=== PATIENT | male | born 1955 | race Caucasian/White ===

== ENCOUNTER 2016-10-03 04:04 | Inpatient (IN) | payer MEDICARE, OTHER ==
--- NOTE | ~2016-10-03 | EEG ---
Electroencephalogram [address] [place]. [address] NAME: KEMAL MARTINEZ : 59 STATUS : ADM IN PAT#: [id number] AGE: 61 ADM/REG DATE : 10/03/16 MR#: [id number] REPORT SERV DATE: 10/07/16 DICTATED BY: JUANITA FELDMAN DATE: 10/07/16 REPORT STATUS : Draft TRANSCRIBED BY: MODL DATE: 10/07/16 ORDERING PHYSICIAN: Juanita Feldman M.D. INTERPRETING PHYSICIAN: Juanita Feldman M.D. REASON FOR EEG: This is a repeat EEG 24 hours after the initial EEG done on showing continuous status epilepticus, history of altered mental status, encephalopathy, end stage renal disease. The patient was started on continuous dialysis in the last 24 hours. 23 surface electrodes, 10-20 international placement was used. The patient was noted to be unresponsive initially, sedated on Diprivan, while the EEG was being performed, Diprivan was withdrawn to monitor the patient's cerebral activity. The patient's EEG remained diffusely slow with changes compatible with encephalopathic process with burst suppression pattern. Intermittent sharp activity was also noted. After Diprivan was withdrawn, there was recurrence of background activity, which appeared to be relatively organized at times of frequency between 5 and 6 cycles per second. Intermittent biphasic and triphasic waveforms were seen; however, marked improvement in the EEG was seen as compared to the previous study done 24 hours ago. No significant asymmetry of cerebral activity was seen. IMPRESSION: ABNORMAL EEG CHARACTERIZED BY PRESENCE OF DIFFUSE SLOWING OF CEREBRAL ACTIVITY, COMPARED TO THE PREVIOUS STUDY DONE 24 HOURS AGO, THIS EEG SHOWED MARKED IMPROVEMENT WITH DISAPPEARANCE OF PAROXYSMAL EPILEPTIFORM DISCHARGES AND RE-APPEARANCE OF RHYTHMIC BACKGROUND ACTIVITY WHICH APPEARED TO BE OF MODERATE TO HIGH VOLTAGE. NO SIGNIFICANT ASYMMETRY OF CEREBRAL ACTIVITY WAS SEEN. THE PATIENT'S INTERNAL MEDICINE VETERINARY TECHNICIAN SHOWED SINUS RHYTHM, RATE OF APPROXIMATELY 68 TO 72 BEATS PER MINUTE. OF NOTE, THE PATIENT'S BUN WAS 80, 24 HOURS AGO AND 34 TODAY. CLINICAL CORRELATION IS RECOMMENDED. RENITA/HUGO Juanita Feldman MD / [id number] CC: MD Viridiana Flores
--- NOTE | ~2016-10-03 | CN ---
Consultation Report [facility] [address] [place]. [address] NAME: KEMAL MARTINEZ : 59 STATUS : ADM IN [facility]#: [id number] AGE: 61 ADM/REG DATE : 10/03/16 MR#: [id number] REPORT SERV DATE: 10/04/16 DICTATED BY: DATE: REPORT STATUS : Draft TRANSCRIBED BY: MODL DATE: 10/04/16 NEUROLOGY CONSULTATION DATE OF CONSULTATION: 10/04/2016 REASON FOR CONSULT: Encephalopathy. HISTORY OF PRESENT ILLNESS: This is a 61-year-old male, presented to [facility] secondary to altered mental status of unknown duration. Family is otherwise unavailable for evaluation. The patient was noted to be obtunded by family member and was arrived from home via EMS. Upon arrival to the ER, the patient was noted to receive Narcan where the patient workup briefly went back to his obtunded state. The patient in addition received hemodialysis and does not appear to have any improvement in the patient's mental status. The patient currently is apparently receiving hemodialysis, also the patient does have peritoneal dialysis access in the left lower quadrant, which the patient apparently is not currently using. No reports of recent illness were otherwise provided. During the hospital stay, the patient unfortunately was noted to have deteriorating O2 saturation. As a result, the patient was transferred from IMCU to ICU due to worsening O2 saturation. PAST MEDICAL HISTORY: The patient's past medical history is significant for history of chronic pain, type 2 diabetes, end-stage renal disease, hypertension, hypothyroidism. the patient previously on peritoneal dialysis and currently on hemodialysis. MEDICATIONS: According to the patient's available medication, the patient at home takes Risperdal, doxycycline, , diltiazem, baclofen, Renvela, calcium, torsemide, levothyroxine, and Linzess. ALLERGIES: THE PATIENT WAS NOTED TO HAVE ALLERGY REPORTED TO [facility] LYR[facility]. FAMILY AND SOCIAL HISTORY: Family history as well as social history is unable to be obtained due to the patient's current mental status. REVIEW OF SYSTEMS: Otherwise, unable to be obtained secondary to the patient's mental status. PHYSICAL EXAMINATION: VITAL SIGNS: The patient was noted to have vital signs with T-max of 99.1, heart rate of 99 to 129, respiration of 8 to 41, blood pressure of 101 to 179 over 57 to 99. GENERAL: The patient is well developed, well nourished, in no acute distress. CARDIOVASCULAR: Tachycardic. No carotid bruit was otherwise auscultated. PULMONARY: Decreased breath sound in bilateral lung . Consultation Report [id number] [place]. [address] NAME: KEMAL MARTINEZ : 59 STATUS : ADM IN PAT#: [id number] AGE: 61 ADM/REG DATE : 10/03/16 MR#: [id number] REPORT SERV DATE: 10/04/16 DICTATED BY: DATE: REPORT STATUS : Draft TRANSCRIBED BY: MODYvette DATE: 10/04/16 NEUROLOGIC: Generally, the patient is awake, some dysarthric vocalization was noted. The patient is not able to follow commands. At the time of evaluation, the patient does demonstrate spontaneous movement of right upper extremity. The patient's cranial nerves 2 through 12. Pupils equal, round, and reactive to light. At the time of evaluation, trace horizontal eye movement was noted. Oculocephalic maneuver with [id number] response. The patient demonstrated grimace to noxious stimulation in bilateral upper extremity with some grimace to noxious stimulation in the right upper as well as bilateral lower extremity. The patient was noted to have increased muscle tone in the left upper extremity. Spontaneous movement in the right upper extremity was noted. The patient does demonstrate some mild clonus jerking at the time of evaluation. No spontaneous movement in bilateral lower extremity was seen. The patient demonstrated 3+ reflex in bilateral upper extremity. Bilateral lower extremities reflex was difficult to obtain. Otherwise, no plantar reflex was noted in bilateral lower extremity. Gait and cerebellar examination is unable to be performed secondary to the patient's current mental status. LABORATORY DATA: At the time of evaluation, the patient's laboratory study demonstrated white blood cell count of 23.1, hemoglobin of 13.6, hematocrit of 41.9, and platelet count of 355. Chemistry panel: Procalcitonin of 0.86. Sodium 145, potassium 4.6, chloride 107, bicarb 23, BUN of 53, creatinine of 8.95, glucose of 132. Calcium of 11.1, magnesium 2.1. Serum cholesterol of 181, HDL of 68, LDL of 90, and triglyceride of 138. Hemoglobin A1c of 7.1. Hepatitis panel is otherwise negative. The patient's ABG today demonstrated pH of 7.33, pCO2 of 39, PO2 of 74, bicarb of 20, O2 saturation of 93.4. CT scan of the brain was reviewed, mild generalized atrophy. Otherwise, no acute process was seen. CT scan of abdomen, report was also review. No clear abdominal process was otherwise noted. IMPRESSION: 1. Encephalopathy. 2. 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 Etiology of encephalopathy is otherwise unknown. The patient does have some lesions in bilateral lower extremity concerning for possible vasculitis versus endocarditis. We will check echocardiogram secondary to dyspnea as well as hypoxia and bilateral lower extremity lesion for evaluation secondary to myoclonus. We will start the patient on Keppra 250 mg IV b.i.d. We will also obtain EEG on 10/05/2016. When the patient's respiratory status is stable, we are recommending possible MRI study. RECOMMENDATIONS: 1. Keppra 250 mg IV b.i.d. 2. EEG, 10/05/2016. 3. Echocardiogram. 4. Procalcitonin, vitamin B12, folate with morning labs. 5. MRI study when the patient's respiratory status improves. Consultation Report [address] [place]. [address] NAME: KEMAL MARTINEZ : 59 STATUS : ADM IN [facility]#: [id number] AGE: 61 ADM/REG DATE : 10/03/16 MR#: [id number] REPORT SERV DATE: 10/04/16 DICTATED BY: DATE: REPORT STATUS : Draft TRANSCRIBED BY: MODL DATE: 10/04/[address] [facility]/HUGO Obie Quintanilla MD / [id number] CC: Colby Yarbrough MD
--- NOTE | ~2016-10-03 | CN ---
Consultation Report [facility] [address] [place]. [address] NAME: KEMAL JAQUEZ : 59 STATUS : ADM IN PAT#: [id number] AGE: 61 ADM/REG DATE : 10/03/16 MR#: [id number] REPORT SERV DATE: 10/03/16 DICTATED BY: NICO CLARK DATE: 10/03/16 REPORT STATUS : Draft TRANSCRIBED BY: MODL DATE: 10/03/16 NEPHROLOGY CONSULT NOTE DATE OF CONSULTATION: 10/03/2016 HISTORY OF PRESENT ILLNESS: Mr. Jaquez is a 61-year-old, white male, brought to the emergency room by EMS from [facility] where he was discharged yesterday after presenting there without dialysis, confused and was told to follow up with his primary care physician, Dr. Tony Doty. His primary care doctor/sow manager is not available for contact today and discussed the case with Dr. Rosen who is covering for him and he knew very little about the patient. I have not been able to contact the . She is not available and does not answer her cellphone, but I am told by people that have talk to her or have heard her story from somebody in [place], [place], he has been on peritoneal dialysis up until two weeks ago, at which time they had to change the peritoneal catheter out and a PermCath was placed in his right shoulder. He has been dialyzing through the PermCath on Tuesday, , and Tuesday. He has missed his dialysis treatment on Tuesday for sure, probably missed his dialysis also, and he presents now here with volume overload and altered mental status. The exact etiology for the altered mental status is unknown. Records from [facility] in [place], [place] showed that he was treated with Risperdal there and Compazine and given prescriptions for both medications. I am not sure he took any or not. On arrival here, I was informed he was a peritoneal-dialysis patient, set up for peritoneal dialysis, but when I got the rest of the story, we have canceled any plans for peritoneal dialysis, which was meredith in that his peritoneal dialysis catheter came here uncapped and exposed to his skin, and therefore, I do not believe it is sterile anymore, and he has a right IJ PermCath whose dressings have not been disturbed. Per [facility] records from 2013, he was started on hemodialysis here on 12/04/2013, and transferred to [facility] for outpatient hemodialysis, but I do not have any records after that. 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 In the distant past in 2011, he had been seen by Dr. Nikolay Haskins in our office but those records are not available either. SOCIAL HISTORY: Again from record shows retired from [email or web address], with four children, lives in [place]. No tobacco, and does take some alcohol, but no drugs. FAMILY HISTORY: Positive for coronary artery disease in his father and hypertension. All these from old records. Consultation Report [id number] [facility] [place] [place]. [address] NAME: KEMAL JAQUEZ : 59 STATUS : ADM IN [facility]#: [id number] AGE: 61 ADM/REG DATE : 10/03/16 MR#: [id number] REPORT SERV DATE: 10/03/16 DICTATED BY: NICO CLARK DATE: 10/03/16 REPORT STATUS : Draft TRANSCRIBED BY: HUGO DATE: 10/03/16 PHYSICAL EXAMINATION: GENERAL: Currently, he is unable to give any history. He is on BiPAP, mid zone, and mumbles but cannot understand. VITAL SIGNS: Blood pressure 158/81, heart rate 100, respirations 22, temperature afebrile. HEENT: Unremarkable and does not follow commands. NECK: Without bruit. No jugular venous distention. CHEST: Shows decreased breath sounds at the bases. No wheezes. CARDIOVASCULAR: Without rub. ABDOMEN: Soft. Complained of tenderness or grimacing with examination of entire abdomen, but no rebound and no megaly. Midline PD catheter in place with now it has a cap on it, placed by the emergency room personnel. EXTREMITIES: Left big toe is missing on his left foot but no peripheral edema. He is disoriented and unable to give a history and he does move all four extremities well. LABORATORY DATA: Labs showed a pH of 7.37, pCO2 of 39, pO2 103 on 2 L. Sodium 141, potassium 4.5, chloride 100, CO2 22 with a BUN of 70, creatinine 10.6, blood sugar 178 and repeat 114, calcium 9.3, magnesium 1.9, phosphorus 4.2, total protein up to 9, albumin 3.7, alkaline phos 346. Normal liver enzymes, otherwise. Ammonia level 21. CPK was 190, troponin 0.06. White count 12,600, hemoglobin 13, hematocrit 40, platelet count 345,000. Blood cultures and urine culture have been done. Urinalysis shows greater than 180 white cells per high-power field. INR is 1.2. Chest x-ray shows history of previous surgery, low lung volumes and mild vascular prominence. CT of the brain showed no acute abnormalities. CT scan of the abdomen and pelvis shows no active abnormalities found. ASSESSMENT: 1. End-stage renal disease patient from [facility] under the care of a sow manager there, presents with altered mental status, no other history. He has missed some dialysis treatments and we will plan to start hemodialysis here and get more records, apparently was a peritoneal dialysis patient. The catheter was exchanged two weeks ago, I am not sure why, and is currently hemo-dialyzing in [place]. They are closed today but the covering physician does remember something about him going yesterday to [facility] in [place] and discharged from there after being given prescriptions for Risperdal and Compazine. 2. Hypertension. 3. Diabetes mellitus on oral agents. 4. Chronic pain syndrome from his back and fibromyalgia. 5. Hypothyroid. 6. Nephrolithiasis. 7. Congestive heart failure systolic. 8. Currently has urinary tract infection, treated with Rocephin. We have added vancomycin because of his exposed catheter and concerned regarding infection from his PermCath and/or abdomen causing his altered mental status. PLAN: Continue BiPAP, ultrafiltration, on hemodialysis today, and we called the nurse in to Consultation Report [address] [place] [address] NAME: JUANKEMAL EMERITA : 59 STATUS : ADM IN PAT#: [id number] AGE: 61 ADM/REG DATE : 10/03/16 MR#: [id number] REPORT SERV DATE: 10/03/16 DICTATED BY: NICO CLARK DATE: 10/03/16 REPORT STATUS : Draft TRANSCRIBED BY: HUGO DATE: 10/03/16 dialyze him, and we will attempt to confirm the history we have, await cultures reports. GIOVANNI/HUGO Nico Clark M.D. / [id number] CC: MD Dr. Tony Flores
--- NOTE | ~2016-10-03 | HP ---
History And Physical [address] [place]. [address] NAME: KEMAL MARTINEZ : 59 STATUS : ADM IN [facility]#: [id number] AGE: 61 ADM/REG DATE : 10/03/16 MR#: [id number] REPORT SERV DATE: 10/03/16 DICTATED BY: COLBY GOVEA DATE: 10/03/16 REPORT STATUS : Draft TRANSCRIBED BY: MODL DATE: 10/03/16 DATE OF ADMISSION: 10/03/2016 CHIEF COMPLAINT: Change in mental status. HISTORY OF PRESENT ILLNESS: A 61-year-old white male with a past medical history of chronic pain, diabetes type 2, end-stage renal disease, hypertension, hypothyroid, presenting with change of mental status of unknown duration. The patient arrived from home and was brought in by EMS. The patient was found to be obtunded. Based on ER record/staff, the patient, on the way in, got Narcan and the patient woke up and then subsequently went back to his change in mental status. Unfortunately, the patient could not give any further history at this time. There are no family present as well. The patient does get dialysis from a PermCath on his right anterior chest wall and also he has a PD access on his left lower quadrant of his abdomen. PAST MEDICAL HISTORY: As above. MEDICATIONS: Currently unknown. The patient does not have an adequate list to be verified at this time. Based on the previous visit at [facility] in [facility]. MEDICATIONS: The patient's medications are as follows: 1. Calcium acetate 667 mg p.o. t.i.d. 2. Diltiazem 120 mg p.o. 2 times a day. 3. Vitamin A 8000 units once daily. 4. Vitamin D3, 5000 units unknown frequency. 5. Doxycycline 100 mg q.12. 6. Bethanechol 50 mg 2 times a day. 7. Levothyroxine 150 mcg 1 tab p.o. daily. 8. Baclofen 20 mg p.o. three times a day. 9. Linzess 290 mcg 1 tab daily. 10.Renvela 800 mg 2 tabs 3 times a day. 11.Omeprazole 20 mg p.o. daily. 12.Oxycodone 10 mg p.o. q.6. ALLERGIES: COREG AND LYRICA. SOCIAL HISTORY: Unknown patient. FAMILY HISTORY: Unknown patient. REVIEW OF SYSTEMS: Unknown patient. PHYSICAL EXAMINATION: VITAL SIGNS: Temperature of 97.2, pulse of 97, respiratory rate of 15, blood pressure 160/90, and O2 saturation 100% on 2 L. History And Physical [address] [address] NAME: KEMAL MARTINEZ : 59 STATUS : ADM IN [facility]#: [id number] AGE: 61 ADM/REG DATE : 10/03/16 MR#: [id number] REPORT SERV DATE: 10/03/16 DICTATED BY: COLBY GOVEA DATE: 10/03/16 REPORT STATUS : Draft TRANSCRIBED BY: HUGO DATE: 10/03/16 HEENT: Head and neck normocephalic, atraumatic. Pupils are pin point. CARDIOVASCULAR: S1, S2. Regular rate and rhythm. LUNGS: Good air entry. No wheeze, rales, or rhonchi. There is a right anterior PermCath for HD access. ABDOMEN: Soft, nontender, and nondistended. Positive bowel sounds. There is a PD catheter located on the left lower quadrant of his abdomen. NEUROLOGIC: The patient is awake and arousable. Nonverbal. No focal deficit appreciated. LABORATORY DATA: Sodium 141, potassium 4.5, chloride 100, bicarb 22, BUN 70, creatinine 10.6, glucose 178, GFR 5, calcium 9.3, total protein 9.0, albumin 3.7, globulin 12.3, total bilirubin 7.4, alkaline phosphatase 346, ALT 33, AST 18, ammonia 18, CPK 190. Tylenol 2.0. Aspirin 1.7. Alcohol level less than 10. WBC 12.8, hemoglobin 13.2, hematocrit 40.4, and platelets 345. PT 14.9, INR 1.2. CT of the head shows no acute abnormality. CT abdomen and pelvis. Initial impression was no acute intraabdominal pathology identified. Contour deformity lower pole right kidney. Ultrasound evaluation to exclude solid mass. ASSESSMENT AND PLAN: 1. Encephalopathy of unknown duration, unknown etiology at this time. Questionable if this patient is secondary to medication. The patient is currently on the Narcan drip. There are some effects of waking up the patient with the Narcan drip. Questionable if the patient took too much oxycodone based on his partial med list. In addition, the change in mental status could be also metabolic in nature. We will have Nephrology on consult for dialysis. Hopefully once we get the patient more awake and alert, probably provide more history in order to determine the cause of his encephalopathy. 2. End-stage renal disease, on hemodialysis. The patient does have a PD catheter in place. Initial CT of the abdomen and pelvis shows no acute abnormality in the abdomen. We will have Renal on consult for dialysis and use the right PermCath. In addition, we will also empirically cover the patient for UTI. We will start the patient on Rocephin 1 g IV q.24. 3. Diabetes type 2. Hold the patient's Toujeo at this time. Use sliding scale and check Hemoglobin A1c. The patient is too obtunded to eat at this time and we will just use sliding scale for blood sugar coverage. 4. Hypothyroid. We will give the patient IV Synthroid 75 mcg daily. 5. Hypertension. The patient cannot take any medication due to his obtundation at this time. We will just cover with hydralazine p.r.n. Should the patient be more awake and alert, we will restart his blood pressure medication. 6. DVT prophylaxis. We will start the patient on heparin. ROBERTO CARLOS/HUGO Colby Govea MD / [id number] History And Physical [address] [address] NAME: KEMAL MARTINEZ : 59 STATUS : ADM IN PAT#: [id number] AGE: 61 ADM/REG DATE : 10/03/16 MR#: [id number] REPORT SERV DATE: 10/03/16 DICTATED BY: COLBY GOVEA DATE: 10/03/16 REPORT STATUS : Draft TRANSCRIBED BY: MODL DATE: 10/03/16 CC: Colby Govea MD
--- NOTE | ~2016-10-03 | CN ---
Consultation Report [facility] [address] [place]. [address] NAME: KEMAL MARTINEZ : 59 STATUS : ADM IN PAT#: [id number] AGE: 61 ADM/REG DATE : 10/03/16 MR#: [id number] REPORT SERV DATE: 10/18/16 DICTATED BY: DAVID CONTRERAS DATE: 10/18/16 REPORT STATUS : Draft TRANSCRIBED BY: MODL DATE: 10/18/16 PSYCHIATRIC CONSULTATION DATE OF CONSULTATION: 10/18/2016 I reviewed this patient's current and old medical records. I discussed the patient's status with Dr. Hayden. I discussed the patient's history with his , who was at the bedside. HISTORY OF PRESENT ILLNESS: He was admitted with hypertensive emergency, acute pulmonary edema, chronic kidney disease. I was asked to address anxiety and irritability. PAST PSYCHIATRIC HISTORY: He always had a tendency toward mood cycling. He had spontaneous and easily provoked episodes of anger. He also had episodes of high achievement. He has not experienced periods of euphoria. He has been on Effexor for a number of months without any benefit. Recently, since this admission, he was started on Depakote and Keppra because of apparent status epilepticus. I wonder if there was any association with the increase in his irritability and the starting of Keppra. 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 He had a fall down the stairs while carrying a heavy camera. This caused severe back injury. Since then, he has taken opioid medications on and off. After discharge from the , he went back to college and graduated with a second degree. He has always been highly motivated and very active. FAMILY HISTORY: His mother had bipolar disorder. MENTAL STATUS: He was alert. He was quite talkative. His mood was anxious and angry. He repeatedly expressed a desire to return to his home and to proceed with the requirements for a kidney transplant. He expressed difficulty understanding the need for the continued hospitalization in this hospital. His affect was somewhat labile with brief outburst of anger. His thinking was logical. He had no delusions. He had no hallucinations. He was oriented to "October"-"is it the or the "-"2016"-"a hospital, in [place]"-"it is not [facility] and it is not [facility]." He was oriented to persons. He discussed and named family members appropriately. He estimated his length of stay in this hospital as "about a week." DIAGNOSES: 1. Delirium, improved. 2. Mood disorder, not otherwise specified. RECOMMENDATIONS: I will discontinue the Effexor if this has not already been done. I wonder about the possibility of Keppra causing an increase in his irritability. I will start him on Abilify 5 mg b.i.d. and Ativan 0.5 mg b.i.d. Hopefully, we can comply with his wishes for a discharge to his home to allow him to proceed with the workup for a kidney transplant. I will follow during this hospitalization. Consultation Report [address] [place]. [address] NAME: KEMAL MARTINEZ : 59 STATUS : ADM IN PAT#: [id number] AGE: 61 ADM/REG DATE : 10/03/16 MR#: [id number] REPORT SERV DATE: 10/18/16 DICTATED BY: DAVID CONTRERAS DATE: 10/18/16 REPORT STATUS : Draft TRANSCRIBED BY: HUGO DATE: 10/18/16 EMILIA/HUGO David Contreras M.D. / [id number] CC: Jenise Warner Sherri Lee
--- NOTE | ~2016-10-03 | DS ---
Discharge Summary [address] [address] NAME: KEMAL MARTINEZ : 59 STATUS : DIS IN PAT#: [id number] AGE: 61 ADM/REG DATE : 10/03/16 MR#: [id number] REPORT SERV DATE: 10/19/16 DICTATED BY: LEANDRA HAYDEN DATE: 10/18/16 REPORT STATUS : Draft TRANSCRIBED BY: MODL DATE: 10/18/16 ADMISSION DATE: 10/03/2016 DISCHARGE DATE: 10/18/2016 DISCHARGE DIAGNOSES: 1. 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 2. Sepsis. 3. ESBL Escherichia coli positive tracheal culture with pulmonary infiltrate, suspected HCAP. 4. Acute hypoxemic respiratory failure requiring mechanical ventilation. 5. End-stage renal disease, on chronic dialysis. Transplant evaluation ongoing at [facility]. 6. Chronic pain syndrome. 7. Mood disorder, not otherwise specified. 8. Diabetes with retinopathy, neuropathy, and nephropathy. 9. Acute blood loss anemia. 10.Anemia of chronic disease. 11.Diastolic congestive heart failure. 12.Chronic constipation, on Linzess. 13.Systemic hypertension. 14.Hyperlipoproteinemia. 15.Hypothyroid, on Synthroid replacement. 16.History of Methicillin-resistant Staphylococcus aureus left foot infection with left great toe amputation. 17.History of pericardial tamponade post window. PRESENT ILLNESS: This is a 61-year-old white male, who was triaged in the emergency room with an altered mental status of three days' duration. After evaluation in the emergency room, he was referred to the Hospitalist Service for admission. He was seen by Dr. Yarbrough and admitted as described on admission history and physical examination. ADDITIONAL HISTORY: Per Dr. Yarbrough. PHYSICAL EXAMINATION: Per Dr. Yarbrough. ADMISSION LABORATORY: Per Dr. Yarbrough. HOSPITAL COURSE: He was admitted with encephalopathy of unknown duration and unknown etiology. There was some concern that it might relate to opioids as he had a transient improvement with the use of Narcan. In addition, he was empirically covered for possible urinary tract infection with Rocephin. Nephrology consultation was obtained. He was seen by Dr. Rodriguez. He was also concerned about infection related to his PermCath or peritoneal dialysis catheter (which was not being Discharge Summary [address] [address] NAME: KEMAL MARTINEZ : 59 STATUS : DIS IN PAT#: [id number] AGE: 61 ADM/REG DATE : 10/03/16 MR#: [id number] REPORT SERV DATE: 10/19/16 DICTATED BY: LEANDRA HAYDEN DATE: 10/18/16 REPORT STATUS : Draft TRANSCRIBED BY: MODL DATE: 10/18/16 used). Vancomycin was added. A CT scan of the brain was done which did not demonstrate any acute abnormality. Admission chest x-ray did not show a pulmonary infiltrate. Admission blood cultures did not subsequently grow any organisms but a urine culture grew Amaya glabrata. When seen by Dr. Yarbrough on 10/04/2016, the patient was unresponsive. He had increasing O2 requirement. He was transferred to the ICU. In the intensive care unit, he was followed by Nephrology. He was seen by Neurology. He was cared for by the Critical Care Medicine team. His hospital course in the ICU from transfer through 10/15/2016, is as outlined on interim summary dictated by Dr. Shoemaker. His care was assumed by the undersigned on 10/16/2016. He was seen on 10/17/2016 and on 10/18/2016. Additional history was obtained from his on 10/17/2016, which included 1. He was not overusing opioids as she was managing his medications and he was seeing Pain Management. 2. He had behavioral changes intermittently for the previous six months which resulted in at least three if not four hospitalizations in [place] and [place]. Each time, he was diagnosed as having an infection. 3. His mental status had not yet returned to normal. 4. He had a history of depression, previously treated with Trintellix and Effexor but had not had any psychiatric hospitalizations. 5. He had some generalized anxiety that was not being treated. 6. He was being evaluated at [place] for a transplant but had not yet had a mental status psychiatric evaluation. Consultation was obtained with Dr. J Carlos Hernandez. He thought that he had a mood disorder, not otherwise specified and that his delirium was improved. He recommended discontinuing Effexor and beginning Abilify and Ativan with outpatient followup. He completed ten days of meropenem. He had been placed on a Duragesic patch in the ICU. This was discontinued. His home immediate release oxycodone was initiated. His pain control was satisfactory. He had a drop in his hemoglobin during his hospitalization. It was 6.4 on the 8th. He was transfused and subsequent hemoglobins were 9.6, 9.7, and 8.8. Iron studies revealed an iron of 35, TIBC of 149 with a ferritin of 915, folate 7.2, B12 of 861, TSH 1.54, and no monoclonal protein on serum protein electrophoresis and LDH was mildly elevated at 263. Stools were requested for Hemoccult and were negative. When seen on 10/18/2016, when seen by the undersigned with his , he was thought to be back to normal or near normal cognitively. He was eating without nausea, vomiting, or Discharge Summary [address] [address] NAME: KEMAL MARTINEZ : 59 STATUS : DIS IN PAT#: [id number] AGE: 61 ADM/REG DATE : 10/03/16 MR#: [id number] REPORT SERV DATE: 10/19/16 DICTATED BY: LEANDRA HAYDEN DATE: 10/18/16 REPORT STATUS : Draft TRANSCRIBED BY: HUGO DATE: 10/18/16 abdominal pain. He had no cough or dyspnea. He had seen Dr. Hernandez with recommendations as noted above. Neurology had previously signed off after evaluating and treating his complex partial seizures and status with drug recommendations to be described below. He had been seen by Nephrology who thought that he could follow up at [place] on his Tuesday, , Tuesday dialysis schedule. DISCHARGE DATA: Sodium 144, potassium 3.9, chloride 108, CO2 of 22, BUN 34, creatinine 4.92, glucose 1.62, calcium 8.5, mag 1.6, and phosphorus 4.8. White count 10.6, hemoglobin 8.8, platelets 291,000. A.c. and h.s. blood sugars on the 9th, 129, 207, 118, 267; on the before breakfast 220, lunch 84. He is being discharged home to the care of his . He will have home health care for PT evaluation and treatment. He will continue dialysis Tuesday, , and Tuesday at [place]. He will follow up at the [facility]. He will see his primary care physician, Dr. Viridiana Benavides in [place] within a week. He will follow up with Pain Management in [place]. DISCHARGE MEDICATIONS: Pending outpatient followup, Abilify 5 mg twice daily; Depakote 1500 mg twice daily; Keppra 1250 mg every 8 hours; Synthroid 100 mcg daily; Ativan 0.5 mg twice daily; prochlorperazine three times daily as needed for nausea; Toujeo 20 units daily pending outpatient blood sugars plus on a.c. home NovoLog scale; Renvela one tablet three times daily; calcium acetate one tablet three times daily; Linzess one capsule daily; omeprazole 20 mg daily; and oxycodone 10 mg every 4 hours as needed. Discharge time greater than 30 minutes. DD/MODL Leandra Hayden M.D. / [id number] CC: Jenise Warner
--- NOTE | ~2016-10-03 | EEG ---
Electroencephalogram [facility] [address] [place]. [address] NAME: KEMAL MARTINEZ : 59 STATUS : DIS IN PAT#: [id number] AGE: 61 ADM/REG DATE : 10/03/16 MR#: [id number] REPORT SERV DATE: 11/05/16 DICTATED BY: JUANITA FELDMAN DATE: 11/04/16 REPORT STATUS : Draft TRANSCRIBED BY: MODL DATE: 11/04/16 DATE OF SERVICE: 10/05/16: REASON FOR EEG: Severely abnormal EEG. The patient was intubated, unresponsive, status epilepticus. During the EEG, infusion of multiple anticonvulsants was given. The patient was monitored continuously. The total EEG recording was over 3 hours. 23 surface electrodes, 10-20 international placement was used. The patient was unresponsive. No tonic-clonic activity was observed during the study. Intermittent arm movements were noted. The patient was on hemodialysis during part of the recording. 23 surface electrodes, 10-20 international placement was used. Intermittent bilaterally synchronous paroxysmal activity of high voltage of spike and polyspike activity was predominantly seen in the anterior head regions, however, intermittently was bilaterally synchronous involving all the leads. Intermittent periods of burst suppression activity were also observed lasting between one and three seconds. During the EEG, the infusion anticonvulsants was performed with gradual decrease of paroxysmal epileptiform activity after patient eventually received Keppra, Depakote, and Vimpat. Precedex was also used intermittently with larger doses produced moderate amount of burst suppression activity. IMPRESSION: BILATERALLY SYNCHRONOUS PAROXYSMAL EPILEPTIFORM DISCHARGES SEEN CONTINUOUSLY ARE COMPATIBLE WITH CONTINUOUS STATUS EPILEPTICUS UNDERLYING SLOWING AND DISORGANIZATION OF CEREBRAL ACTIVITY WITH INTERMITTENT BIPHASIC AND TRIPHASIC WAVEFORMS SUGGEST PRESENCE OF METABOLIC ENCEPHALOPATHY. REPEAT EEG IS RECOMMENDED IN 24 HOURS. RENITA/HUGO Juanita Feldman MD / [id number] CC: Jenise Warner,NICA MAY
--- NOTE | ~2016-10-03 | IDS ---
Interim Discharge Summary [facility] [address] [place]. [address] NAME: KEMAL MARTINEZ : 59 STATUS : ADM IN [facility]#: [id number] AGE: 61 ADM/REG DATE : 10/03/16 MR#: [id number] REPORT SERV DATE: 10/15/16 DICTATED BY: DEANDRE MARTIN DATE: 10/15/16 REPORT STATUS : Draft TRANSCRIBED BY: MODL DATE: 10/15/16 ADMISSION DATE: 10/03/2016 DISCHARGE DATE: DATE OF INTERIM DISCHARGE SUMMARY: 10/15/2016 ADMISSION DIAGNOSES: Encephalopathy, end-stage renal disease, peritoneal dialysis, diabetes, hypothyroidism, hypertension. HOSPITAL COURSE: Please see history and physical on admission for full detail. In brief, this is a 61-year-old gentleman with a history of end-stage renal disease, on peritoneal dialysis, who was admitted with encephalopathy and was found to have ESBL E. coli. The patient has currently been on meropenem. The patient's shock has now resolved for at least 24 hours. The patient was on cefepime prior around 10/09/2016, but this has been changed to meropenem. The first day of the meropenem was 10/10/2016. The patient's inflammatory and sepsis have improved. The patient remains on meropenem. 1. Acute kidney injury: The patient had his first HD treatment, actually his diagnosis is end-stage renal disease. The peritoneum is not being used due to the infection noted on admission. His first HD treatment during this hospitalization was on 10/14/2016. 2. Encephalopathy: Neurology has been on board, he is on multiple antiepileptics. Unfortunately, his neurologic encephalopathy has improved. The patient had myoclonus and was at that time noted to be hypoxic. His EEGs have improved. 3. Anemia: The patient is chronically anemic. He needs to have his CBC checked routinely as he is close to requiring another blood transfusion. 4. Diabetes: The patient is currently on Levemir and level 3 insulin sliding scale. Has had good control. 5. Hypoxia: Currently, on nasal cannula. 6. Disposition: The patient is to be transferred to the floor today. HFQ/MODL Deandre Martin MD / [id number] CC: Colby Yarbrough MD
--- NOTE | ~2016-10-03 | OP ---
Record Of Operation [facility] [address] [place]. [address] NAME: KEMAL MARTINEZ : 59 STATUS : ADM IN [facility]#: [id number] AGE: 61 ADM/REG DATE : 10/03/16 MR#: [id number] REPORT SERV DATE: 10/05/16 DICTATED BY: LEIGHTON GARCIA DATE: 10/05/16 REPORT STATUS : Draft TRANSCRIBED BY: MODL DATE: 10/05/16 DATE OF PROCEDURE: PROCEDURE PERFORMED: Oroendotracheal intubation. INDICATION: For acute hypoxemic respiratory failure and status epilepticus. DESCRIPTION OF PROCEDURE: The patient was transferred back from dialysis to the ICU. He received 10 mL of IV propofol. Tolerated it well, and using a GlideScope #4 blade, we were able to directly visualize the vocal cords which were midline with some thick white secretions throughout, but no obstruction. We advanced a size 8 oroendotracheal tube beyond the vocal cords without difficulty and secured in place at 24 cm. Proper placement was confirmed by good auscultation of breath sounds bilaterally. Good fogging with bagging and good oxygenation. Good color change on an end-tidal CO2 indicator and chest radiograph. IMPRESSION: Successful oroendotracheal intubation. EDWAR/HUGO Leighton Garcia M.D. / [id number] CC: MD ROSA ELENA Flores SHERRI LEE
[2016-10-03 03:40] LABS: BE (BASE EXCESS) -4.3 MEQ/L (0 +/- 2.5); CARBOXYHEMOGLOBIN 1.2 % (0-3); DEVICE NC; HCO3 (ACTUAL BICARBONATE) 20.8 MEQ/L (23-27); HEMOBLOGIN CONTENT 12.5 G/DL (14-18); INSTRUMENT SERIAL # 8087; METHEMOGLOBIN 0.1 % (0-3); OPERATOR ID 17537; PCO2 (CO2 TENSION) 39 MMHG (35-45); PO2 (O2 TENSION) 103 MMHG (79-93); SAMPLE Arterial; pH 7.35 (7.37-7.43)
[~2016-10-03 04:04] MED LIST: AMIT25 PO; APRES50 PO; ATV.5 PO; CAT2 PO; COREG12 PO; COREG25 PO; DSS PO; DURA25 TOP; KDUR10 PO; LEVEMIR SC; NORV5 PO; NOVOLOG SC; OXYIR5 MG PO; PAX10 PO; SPIRO25 PO; SPIRO50 PO; SYN.15 PO; TYLENOL 8 HR650 MG PO; VICTOZA18 MG/3 ML SC; VITAMIN D31000 UNIT PO; VITE200U PO; ZOCOR20 PO
[2016-10-03 04:49] LABS: BASOPHILS 0.1 %; BASOPHILS ABSOLUTE 0.01 10/3/uL (0.0-0.16); EOSINOPHILS 0.1 %; EOSINOPHILS ABSOLUTE 0.01 10/3/uL (0.0-0.53); IMMATURE GRANULOCYTES 0.4 %; IMMATURE GRANULOCYTES ABSOLUTE 0.05 10/3/uL (0.0-0.11); LYMPHOCYTES 7.2 %; LYMPHOCYTES ABSOLUTE 0.92 10/3/uL (0.67-4.30); MEAN CORPUS HGB CONC 32.7 g/dL (32.0-36.0); MEAN PLATELET VOLUME 10.4 fL (9.2-13.0); MONOCYTES 5.9 %; MONOCYTES ABSOLUTE 0.75 10/3/uL (0.21-1.20); NEUTROPHILS 86.3 %; NEUTROPHILS ABSOLUTE 11.06 10/3/uL (2.02-8.40); RED CELL COUNT 4.16 10/6/uL (4.7-6.1)
[2016-10-03 04:54] LABS: ER CBC TAT 0 Hrs 13 MinsNP; HEMATOCRIT 40.4 % (40.0-51.0); HEMOGLOBIN 13.2 g/dL (13.6-17.8); MANUAL DIFF NO %; MEAN CORPUSCULAR HEMOGLOB 31.7 pg (26.0-34.0); MEAN CORPUSCULAR VOLUME 97.1 fL (80-100); PLATELET COUNT 345 10/3/uL (150-400); RBC DISTRIBUTION WIDTH 17.4 % (12.0-16.0); WHITE BLOOD CELLS 12.8 10/3/uL (4.5-10.5)
[2016-10-03 05:05] LABS: INTERNATIONAL NORMAL RATI 1.2 UNITS (-); PARTIAL THROMBO TIME 23.4 SEC (22.5-37.2); PROTIME (NOT ORD) 14.9 SEC (12.0-14.5)
[2016-10-03 05:07] LABS: ALBUMIN 3.7 G/DL (3.5-5.0); CALCIUM, SERUM 9.3 MG/DL (8.5-10.4); CHLORIDE, SERUM 100 MMOL/L (96-112); CO2 (CARBON DIOXIDE) 22 MMOL/L (24-34); GLUCOSE, SERUM 178 MG/DL (60-99); POTASSIUM, SERUM 4.5 MMOL/L (3.5-5.3); SGOT(AST) 18 U/L (5-40); SGPT(ALT) 33 U/L (5-65); SODIUM, SERUM 141 MMOL/L (135-148); TOTAL BILIRUBIN 0.4 MG/DL (0-1.2)
[2016-10-03 05:09] LABS: A/G RATIO 0.7 (0.7-1.9); ALKALINE PHOSPHATASE 346 U/L (45-117); BUN (BLOOD UREA NITROGEN) 70 MG/DL (6-23); CPK 190 U/L (0-200); GFR AFRICAN AMERICAN 5 ML/MIN (>=60); GFR NON AFRICAN AMERICAN 5 ML/MIN (>=60); GLOBULIN 5.3 G/DL (2.5-4.1)
[2016-10-03 05:10] LABS: ACETAMINOPHEN LEVEL (TYLENOL) < 2.0 MCG/ML (10.0-20.0); ALCOHOL < 10 MG/DL (0); SALICYLATE < 1.7 MG/DL (-); TROPONIN I 0.06 NG/ML (<0.05)
[2016-10-03 05:47] LABS: ASCORBIC ACID (UR NOT ORDER) NEG (NEG); BILIRUBIN, URINE NEGATIVE (NEG); ER URINALYSIS TAT 0 Hrs 00 Mins; KETONE, URINE NEGATIVE (NEG); LEUKOCYTE ESTERASE(NOT OR MOD (NEG); NITRITE (URINE) NEG (NEG); WBC (NOT ORDERED) (RFLEX) > 182 (0-5)
[2016-10-03 06:02] LABS: AMPHETAMINES (NOT ORD) NEG (NEG); BARBITURATES (NOT ORDERED NEG (NEG); BENZODIAZEPINES (NOT ORD) NEG (NEG); CANNABINOIDS (THC) NEG (NEG); COCAINE (NOT ORDERED) NEG (NEG); OPIATES POS (NEG); PHENCYCLIDINE(PCP) NEG (NEG); TRICYCLICS NEG (NEG)
[2016-10-03] MEDS ORDERED: COMP5B PO (10:04)
[2016-10-03] MEDS ORDERED: DOXYCYCLINE PO (10:05)
[2016-10-03] MEDS ORDERED: RISPERIDONE PO (10:05)
[2016-10-03] MEDS ORDERED: TOUJEO SC (10:06)
[2016-10-03] MEDS ORDERED: DILTIAZEM PO (10:08)
[2016-10-03] MEDS ORDERED: BACLOFEN PO (10:09)
[2016-10-03] MEDS ORDERED: RENVELA800 MG PO (10:09)
[2016-10-03] MEDS ORDERED: TORSEMIDE PO (10:10)
[2016-10-03] MEDS ORDERED: PHOSLO PO (10:10)
[2016-10-03] MEDS ORDERED: LEVOTHYROXINE PO (10:11)
[2016-10-03] MEDS ORDERED: LINZESS 290 M290 MCG PO (10:11)
[2016-10-03] MEDS ORDERED: *UNABLE2 (10:12)
[2016-10-03 12:42] LABS: ULTRASENSITIVE TSH 1.54 MCIU/ML (0.358-3.740)
[2016-10-03 13:38] LABS: PROCALCITONIN 0.86 ng/mL (<0.5)
[2016-10-03 23:10] LABS: BE (BASE EXCESS) -3.9 MEQ/L (0 +/- 2.5); BIPAP 15/5 cm.H2O; CARBOXYHEMOGLOBIN 0.1 % (0-3); HCO3 (ACTUAL BICARBONATE) 21.7 MEQ/L (23-27); HEMOBLOGIN CONTENT 12.8 G/DL (14-18); INSTRUMENT SERIAL # 8083; METHEMOGLOBIN 0.1 % (0-3); O2 CONTENT 17.5 VOL% (18-24); OPERATOR ID 16503; PCO2 (CO2 TENSION) 41 MMHG (35-45); PO2 (O2 TENSION) 95 MMHG (79-93); SAMPLE Arterial; pH 7.34 (7.37-7.43)
[2016-10-04 00:01] LABS: BASOPHILS 0.2 %; BASOPHILS ABSOLUTE 0.03 10/3/uL (0.0-0.16); EOSINOPHILS 0 %; HEMATOCRIT 39.2 % (40.0-51.0); HEMOGLOBIN 12.5 g/dL (13.6-17.8); IMMATURE GRANULOCYTES 0.5 %; IMMATURE GRANULOCYTES ABSOLUTE 0.09 10/3/uL (0.0-0.11); LYMPHOCYTES 4.4 %; LYMPHOCYTES ABSOLUTE 0.84 10/3/uL (0.67-4.30); MEAN CORPUS HGB CONC 31.9 g/dL (32.0-36.0); MEAN CORPUSCULAR HEMOGLOB 31.1 pg (26.0-34.0); MEAN CORPUSCULAR VOLUME 97.5 fL (80-100); MONOCYTES 6.7 %; MONOCYTES ABSOLUTE 1.26 10/3/uL (0.21-1.20); NEUTROPHILS 88.2 %; PLATELET COUNT 363 10/3/uL (150-400); RBC DISTRIBUTION WIDTH 17.6 % (12.0-16.0); RED CELL COUNT 4.02 10/6/uL (4.7-6.1)
[2016-10-04 00:03] LABS: MANUAL DIFF NO %; WHITE BLOOD CELLS 18.9 10/3/uL (4.5-10.5)
[2016-10-04 00:18] LABS: A/G RATIO 0.8 (0.7-1.9); ALBUMIN 4.2 G/DL (3.5-5.0); CALCIUM, SERUM 9.7 MG/DL (8.5-10.4); CHLORIDE, SERUM 106 MMOL/L (96-112); CO2 (CARBON DIOXIDE) 23 MMOL/L (24-34); FREE T4 1.08 NG/DL (0.76-1.46); GLUCOSE, SERUM 152 MG/DL (60-99); POTASSIUM, SERUM 4.6 MMOL/L (3.5-5.3); SGOT(AST) 15 U/L (5-40); SGPT(ALT) 29 U/L (5-65); SODIUM, SERUM 142 MMOL/L (135-148); TOTAL BILIRUBIN 0.5 MG/DL (0-1.2); TOTAL PROTEIN 9.2 G/DL (6.0-8.5)
[2016-10-04 00:19] LABS: ALKALINE PHOSPHATASE 310 U/L (45-117); BUN (BLOOD UREA NITROGEN) 48 MG/DL (6-23); CREATININE 8.01 MG/DL (0.70-1.30); GFR AFRICAN AMERICAN 8 ML/MIN (>=60); GFR NON AFRICAN AMERICAN 7 ML/MIN (>=60); PHOSPHORUS, SERUM 6.1 MG/DL (2.5-4.5)
[2016-10-04 06:01] LABS: HEMATOCRIT 41.9 % (40.0-51.0); HEMOGLOBIN 13.6 g/dL (13.6-17.8); MEAN CORPUS HGB CONC 32.5 g/dL (32.0-36.0); MEAN CORPUSCULAR HEMOGLOB 32.1 pg (26.0-34.0); MEAN CORPUSCULAR VOLUME 98.8 fL (80-100); MEAN PLATELET VOLUME 10.2 fL (9.2-13.0); PLATELET COUNT 355 10/3/uL (150-400); RBC DISTRIBUTION WIDTH 17.5 % (12.0-16.0); RED CELL COUNT 4.24 10/6/uL (4.7-6.1); WHITE BLOOD CELLS 23.1 10/3/uL (4.5-10.5)
[2016-10-04 06:02] LABS: MANUAL DIFF YES %
[2016-10-04 06:22] LABS: BAND NEUTROPHILS 4 %; LYMPHOCYTES 2 %; LYMPHOCYTES ABSOLUTE (CALC) 0.46 10/3/uL (0.67-4.30); MONOCYTES 2 %; MONOCYTES ABSOLUTE (CALC) 0.46 10/3/uL (0.21-1.20); NEUTROPHILS ABSOLUTE (CALC) 22.18 10/3/uL (2.02-8.40); SEGMENTED NEUTROPHIL (0) 92 %; TOTAL NUCLEATED CELLS 100
[2016-10-04 06:23] LABS: ANISOCYTOSIS 1+ (5-10/OIF) (0-5/OIF); PLATELET ESTIMATE ADQ (ADEQUATE); TOXIC GRANULATION 1+
[2016-10-04 06:26] LABS: A/G RATIO 0.8 (0.7-1.9); ALKALINE PHOSPHATASE 300 U/L (45-117); CALCIUM, SERUM 10.1 MG/DL (8.5-10.4); CHLORIDE, SERUM 107 MMOL/L (96-112); CO2 (CARBON DIOXIDE) 23 MMOL/L (24-34); GLUCOSE, SERUM 132 MG/DL (60-99); POTASSIUM, SERUM 4.6 MMOL/L (3.5-5.3); SGOT(AST) 16 U/L (5-40); SGPT(ALT) 29 U/L (5-65); SODIUM, SERUM 145 MMOL/L (135-148)
[2016-10-04 06:27] LABS: BUN (BLOOD UREA NITROGEN) 53 MG/DL (6-23); CHOL/HDL RATIO(NOT ORDER) 2.7 (0-5); CHOLESTEROL 185 MG/DL (< 200); CREATININE 8.95 MG/DL (0.70-1.30); GFR AFRICAN AMERICAN 7 ML/MIN (>=60); GFR NON AFRICAN AMERICAN 6 ML/MIN (>=60); HDL CHOLESTEROL 68 MG/DL (> 39); LDL CHOLESTEROL 90 MG/DL (< 130); NON-HDL CHOLESTEROL 117 MG/DL (< 160); PHOSPHORUS, SERUM 7.4 MG/DL (2.5-4.5); TRIGLYCERIDE 138 MG/DL (< 150)
[2016-10-04 10:29] LABS: BE (BASE EXCESS) -5.6 MEQ/L (0 +/- 2.5); BIPAP 15/5 cm.H2O; CARBOXYHEMOGLOBIN 0.6 % (0-3); INSTRUMENT SERIAL # 8083; METHEMOGLOBIN 0.2 % (0-3); O2 CONTENT 18.3 VOL% (18-24); PCO2 (CO2 TENSION) 39 MMHG (35-45); PO2 (O2 TENSION) 74 MMHG (79-93); SAMPLE Arterial; pH 7.33 (7.37-7.43)
[2016-10-04 10:52] LABS: HEPATITIS C ANTIBODY NON-REACTIVE (NON-REACT)
[2016-10-04 10:53] LABS: HEPATITIS B CORE AB IGM NON-REACTIVE (NON-REAC); HEPATITIS B SURFACE ANTIGEN NON-REACTIVE (NON-REACT)
[2016-10-04 11:11] LABS: HEP A ANTIBODY IGM NON-REACTIVE (NON-REACT)
[2016-10-04 13:55] LABS: INFLUENZA A SCREEN NEGATIVE (NEGATIVE); INFLUENZA B SCREEN NEGATIVE (NEGATIVE)
[2016-10-04 16:03] LABS: PROCALCITONIN 0.78 ng/mL (<0.5)
[2016-10-05 03:14] LABS: HEMATOCRIT 43.1 % (40.0-51.0); HEMOGLOBIN 13.8 g/dL (13.6-17.8); MEAN CORPUSCULAR HEMOGLOB 31.9 pg (26.0-34.0); MEAN CORPUSCULAR VOLUME 99.8 fL (80-100); MEAN PLATELET VOLUME 10.6 fL (9.2-13.0); PLATELET COUNT 270 10/3/uL (150-400); RBC DISTRIBUTION WIDTH 17.6 % (12.0-16.0); RED CELL COUNT 4.32 10/6/uL (4.7-6.1)
[2016-10-05 03:17] LABS: WHITE BLOOD CELLS 30.4 10/3/uL (4.5-10.5)
[2016-10-05 03:18] LABS: MANUAL DIFF YES %
[2016-10-05 03:25] LABS: INTERNATIONAL NORMAL RATI 1.4 UNITS (-); PARTIAL THROMBO TIME 26.1 SEC (22.5-37.2)
[2016-10-05 03:35] LABS: ALBUMIN 3.6 G/DL (3.5-5.0); CHLORIDE, SERUM 106 MMOL/L (96-112); CO2 (CARBON DIOXIDE) 20 MMOL/L (24-34); DIRECT BILIRUBIN 0.4 MG/DL (0.0-0.4); INDIRECT BILIRUBIN(NOT ORDER) 0.3 MG/DL (0.1-0.9); PHOSPHORUS, SERUM 8.1 MG/DL (2.5-4.5); POTASSIUM, SERUM 5.5 MMOL/L (3.5-5.3); SGOT(AST) 32 U/L (5-40); SGPT(ALT) 27 U/L (5-65); SODIUM, SERUM 149 MMOL/L (135-148); TOTAL BILIRUBIN 0.7 MG/DL (0-1.2); TOTAL PROTEIN 9.2 G/DL (6.0-8.5)
[2016-10-05 03:38] LABS: ALKALINE PHOSPHATASE 274 U/L (45-117); BUN (BLOOD UREA NITROGEN) 85 MG/DL (6-23); CALCIUM, SERUM 11.1 MG/DL (8.5-10.4); GFR AFRICAN AMERICAN 4 ML/MIN (>=60); GFR NON AFRICAN AMERICAN 4 ML/MIN (>=60); GLUCOSE, SERUM 228 MG/DL (60-99)
[2016-10-05 03:46] LABS: PROTIME (NOT ORD) 17.2 SEC (12.0-14.5)
[2016-10-05 03:53] LABS: LYMPHOCYTES 3 %; LYMPHOCYTES ABSOLUTE (CALC) 0.91 10/3/uL (0.67-4.30); MONOCYTES 3 %; MONOCYTES ABSOLUTE (CALC) 0.91 10/3/uL (0.21-1.20); NEUTROPHILS ABSOLUTE (CALC) 28.58 10/3/uL (2.02-8.40); SEGMENTED NEUTROPHIL (0) 94 %; TOTAL NUCLEATED CELLS 100
[2016-10-05 03:54] LABS: RBC MORPHOLOGY ABN (NORMAL)
[2016-10-05 11:50] LABS: T PROTEIN (ELECT)(NOT OR 8.9 G/DL (6.0-8.5)
[2016-10-05 12:37] LABS: INTACT PTH (ICMA) 405.7 PG/ML (10.0-65.0)
[2016-10-05 14:26] LABS: BE (BASE EXCESS) -5.6 MEQ/L (0 +/- 2.5); CARBOXYHEMOGLOBIN 0.4 % (0-3); HCO3 (ACTUAL BICARBONATE) 18.7 MEQ/L (23-27); INSTRUMENT SERIAL # 8083; METHEMOGLOBIN 0.1 % (0-3); O2 CONTENT 19.5 VOL% (18-24); OPERATOR ID 13715; PCO2 (CO2 TENSION) 34 MMHG (35-45); PO2 (O2 TENSION) 71 MMHG (79-93); SAMPLE Arterial; pH 7.36 (7.37-7.43)
[2016-10-05 14:27] LABS: ALLENS TEST Pos; BIPAP 18/6 cm.H2O
[2016-10-05 16:35] LABS: BE (BASE EXCESS) -9.8 MEQ/L (0 +/- 2.5); CARBOXYHEMOGLOBIN 0.3 % (0-3); HCO3 (ACTUAL BICARBONATE) 15.4 MEQ/L (23-27); INSTRUMENT SERIAL # 8083; METHEMOGLOBIN 0.1 % (0-3); O2 CONTENT 16.9 VOL% (18-24); OPERATOR ID 35754; PCO2 (CO2 TENSION) 32 MMHG (35-45); PO2 (O2 TENSION) 151 MMHG (79-93); SAMPLE Arterial; pH 7.31 (7.37-7.43)
[2016-10-05 16:36] LABS: ALLENS TEST Pos; MODE CMV; TIDAL VOLUME 550 ML
[2016-10-05 17:30] LABS: CALCIUM, SERUM 10.2 MG/DL (8.5-10.4); CHLORIDE, SERUM 104 MMOL/L (96-112); CO2 (CARBON DIOXIDE) 19 MMOL/L (24-34); DEPAKENE (VALPROIC ACID) 75.5 MCG/ML (50.0-100.0); GLUCOSE, SERUM 195 MG/DL (60-99); PHOSPHORUS, SERUM 7.4 MG/DL (2.5-4.5); SGOT(AST) 21 U/L (5-40); SGPT(ALT) 19 U/L (5-65); SODIUM, SERUM 144 MMOL/L (135-148); TOTAL PROTEIN 8.7 G/DL (6.0-8.5)
[2016-10-05 17:31] LABS: ALBUMIN 4.4 G/DL (3.5-5.0); ALKALINE PHOSPHATASE 207 U/L (45-117); BUN (BLOOD UREA NITROGEN) 64 MG/DL (6-23); CREATININE 9.33 MG/DL (0.70-1.30); GFR AFRICAN AMERICAN 6 ML/MIN (>=60); GFR NON AFRICAN AMERICAN 6 ML/MIN (>=60); GLOBULIN 4.3 G/DL (2.5-4.1); POTASSIUM, SERUM 4.3 MMOL/L (3.5-5.3); TOTAL BILIRUBIN 1.2 MG/DL (0-1.2)
[2016-10-06 05:13] LABS: INTERNATIONAL NORMAL RATI 1.5 UNITS (-); PROTIME (NOT ORD) 17.5 SEC (12.0-14.5)
[2016-10-06 05:18] LABS: HEMOGLOBIN 11.2 g/dL (13.6-17.8); MEAN CORPUS HGB CONC 31.7 g/dL (32.0-36.0); MEAN CORPUSCULAR HEMOGLOB 31.3 pg (26.0-34.0); MEAN CORPUSCULAR VOLUME 98.6 fL (80-100); MEAN PLATELET VOLUME 10.7 fL (9.2-13.0); NUCLEATED RED BLOOD CELLS 0.3 /100WBC (0-0); PLATELET COUNT 237 10/3/uL (150-400); RBC DISTRIBUTION WIDTH 17.9 % (12.0-16.0); RED CELL COUNT 3.58 10/6/uL (4.7-6.1)
[2016-10-06 05:20] LABS: HEMATOCRIT 35.3 % (40.0-51.0); MANUAL DIFF YES %; WHITE BLOOD CELLS 25.4 10/3/uL (4.5-10.5)
[2016-10-06 05:21] LABS: ALBUMIN 3.8 G/DL (3.5-5.0); ALKALINE PHOSPHATASE 208 U/L (45-117); CHLORIDE, SERUM 100 MMOL/L (96-112); CO2 (CARBON DIOXIDE) 19 MMOL/L (24-34); INDIRECT BILIRUBIN(NOT ORDER) 0.9 MG/DL (0.1-0.9); POTASSIUM, SERUM 4.8 MMOL/L (3.5-5.3); SGOT(AST) 14 U/L (5-40); SGPT(ALT) 17 U/L (5-65); SODIUM, SERUM 140 MMOL/L (135-148); TOTAL BILIRUBIN 1.1 MG/DL (0-1.2); TOTAL PROTEIN 8.7 G/DL (6.0-8.5)
[2016-10-06 05:22] LABS: BUN (BLOOD UREA NITROGEN) 81 MG/DL (6-23); DIRECT BILIRUBIN 0.2 MG/DL (0.0-0.4); GFR AFRICAN AMERICAN 5 ML/MIN (>=60); GFR NON AFRICAN AMERICAN 5 ML/MIN (>=60); GLUCOSE, SERUM 316 MG/DL (60-99)
[2016-10-06 05:31] LABS: LYMPHOCYTES 5 %; MONOCYTES 4 %; MONOCYTES ABSOLUTE (CALC) 1.02 10/3/uL (0.21-1.20); NEUTROPHILS ABSOLUTE (CALC) 24.38 10/3/uL (2.02-8.40); SEGMENTED NEUTROPHIL (0) 91 %; TOTAL NUCLEATED CELLS 100
[2016-10-06 05:32] LABS: ANISOCYTOSIS 1+ (5-10/OIF) (0-5/OIF); PLATELET ESTIMATE ADQ (ADEQUATE)
[2016-10-06 05:33] LABS: PHOSPHORUS, SERUM 8.6 MG/DL (2.5-4.5)
[2016-10-06 05:58] LABS: PROCALCITONIN 27.84 ng/mL (<0.5)
[2016-10-06 09:25] LABS: A/G 1.14 RATIO (0.9-2.10); ALB RELATIVE % 53.2 % (60.0-89.0); ALBUMIN (ELECTRO) 4.73 GM/DL (3.2-5.5); ALPHA 1 (ELECTRO) 0.33 GM/DL (0.1-0.4); ALPHA 1 RELAT % (NOT ORD) 3.7 % (1.0-4.0); ALPHA 2 (ELECTRO) 1.19 GM/DL (0.5-1.10); ALPHA 2 RELAT % 13.4 % (4.5-26.0); BETA GLOBULIN (SPE) 0.87 GM/DL (0.60-1.30); BETA RELATIVE % 9.8 % (9.0-22.0); GAMMA GLOBULIN (SPE) 1.77 G/DL (0.70-1.60); GAMMA RELAT % 19.9 % (6.0-22.0)
[2016-10-06 12:37] LABS: ALLENS TEST Pos; BE (BASE EXCESS) -9.2 MEQ/L (0 +/- 2.5); CARBOXYHEMOGLOBIN 0.6 % (0-3); HEMOBLOGIN CONTENT 11.9 G/DL (14-18); INSTRUMENT SERIAL # 8083; METHEMOGLOBIN 0.2 % (0-3); MODE CMV; O2 CONTENT 16.8 VOL% (18-24); PCO2 (CO2 TENSION) 33 MMHG (35-45); PO2 (O2 TENSION) 167 MMHG (79-93); SAMPLE Arterial; TIDAL VOLUME 550 ML; pH 7.31 (7.37-7.43)
[2016-10-06 15:56] LABS: BUN (BLOOD UREA NITROGEN) 80 MG/DL (6-23); CALCIUM, SERUM 9.9 MG/DL (8.5-10.4); CHLORIDE, SERUM 100 MMOL/L (96-112); CO2 (CARBON DIOXIDE) 20 MMOL/L (24-34); POTASSIUM, SERUM 4.2 MMOL/L (3.5-5.3); SODIUM, SERUM 137 MMOL/L (135-148)
[2016-10-06 15:57] LABS: CREATININE 9.46 MG/DL (0.70-1.30); GFR AFRICAN AMERICAN 6 ML/MIN (>=60); GFR NON AFRICAN AMERICAN 5 ML/MIN (>=60); GLUCOSE, SERUM 175 MG/DL (60-99)
[2016-10-06 16:23] LABS: HEMATOCRIT 36.6 % (40.0-51.0); HEMOGLOBIN 11.7 g/dL (13.6-17.8); MEAN CORPUSCULAR HEMOGLOB 31.1 pg (26.0-34.0); MEAN CORPUSCULAR VOLUME 97.3 fL (80-100); MEAN PLATELET VOLUME 10.8 fL (9.2-13.0); NUCLEATED RED BLOOD CELLS 0.4 /100WBC (0-0); PLATELET COUNT 225 10/3/uL (150-400); RBC DISTRIBUTION WIDTH 17.8 % (12.0-16.0); RED CELL COUNT 3.76 10/6/uL (4.7-6.1)
[2016-10-06 16:24] LABS: WHITE BLOOD CELLS 25.1 10/3/uL (4.5-10.5)
[2016-10-06 16:26] LABS: MANUAL DIFF YES %
[2016-10-06 17:02] LABS: BAND NEUTROPHILS 3 %; LYMPHOCYTES 7 %; LYMPHOCYTES ABSOLUTE (CALC) 1.76 10/3/uL (0.67-4.30); MONOCYTES 6 %; MONOCYTES ABSOLUTE (CALC) 1.51 10/3/uL (0.21-1.20); NEUTROPHILS ABSOLUTE (CALC) 21.84 10/3/uL (2.02-8.40); PLATELET ESTIMATE ADQ (ADEQUATE); SEGMENTED NEUTROPHIL (0) 84 %; TOTAL NUCLEATED CELLS 100
[2016-10-06 17:04] LABS: HYPOCHROMIA 1+ (3-10/OIF) (0-2/OIF); MICROCYTES 1+ (5-10/OIF) (0-5/OIF)
[2016-10-06 17:05] LABS: TOXIC GRANULATION SLT
[2016-10-06 22:10] LABS: BASOPHILS 0 %; BASOPHILS ABSOLUTE 0.01 10/3/uL (0.0-0.16); EOSINOPHILS 0.1 %; EOSINOPHILS ABSOLUTE 0.02 10/3/uL (0.0-0.53); HEMATOCRIT 34.1 % (40.0-51.0); HEMOGLOBIN 11.1 g/dL (13.6-17.8); IMMATURE GRANULOCYTES 0.8 %; IMMATURE GRANULOCYTES ABSOLUTE 0.18 10/3/uL (0.0-0.11); LYMPHOCYTES 6.1 %; LYMPHOCYTES ABSOLUTE 1.32 10/3/uL (0.67-4.30); MEAN CORPUS HGB CONC 32.6 g/dL (32.0-36.0); MEAN CORPUSCULAR HEMOGLOB 31.4 pg (26.0-34.0); MEAN CORPUSCULAR VOLUME 96.3 fL (80-100); MEAN PLATELET VOLUME 10.6 fL (9.2-13.0); MONOCYTES 6.5 %; NEUTROPHILS 86.5 %; NEUTROPHILS ABSOLUTE 18.64 10/3/uL (2.02-8.40); RBC DISTRIBUTION WIDTH 17.7 % (12.0-16.0); RED CELL COUNT 3.54 10/6/uL (4.7-6.1); WHITE BLOOD CELLS 21.6 10/3/uL (4.5-10.5)
[2016-10-06 22:11] LABS: MANUAL DIFF NO %; PLATELET COUNT 145 10/3/uL (150-400)
[2016-10-06 22:27] LABS: BUN (BLOOD UREA NITROGEN) 53 MG/DL (6-23); CALCIUM, SERUM 10.2 MG/DL (8.5-10.4); CHLORIDE, SERUM 97 MMOL/L (96-112); CO2 (CARBON DIOXIDE) 23 MMOL/L (24-34); CREATININE 5.87 MG/DL (0.70-1.30); GFR AFRICAN AMERICAN 11 ML/MIN (>=60); GFR NON AFRICAN AMERICAN 10 ML/MIN (>=60); GLUCOSE, SERUM 245 MG/DL (60-99); POTASSIUM, SERUM 3.8 MMOL/L (3.5-5.3); SODIUM, SERUM 137 MMOL/L (135-148)
[2016-10-07 04:13] LABS: BE (BASE EXCESS) -1.8 MEQ/L (0 +/- 2.5); CARBOXYHEMOGLOBIN 0.4 % (0-3); HCO3 (ACTUAL BICARBONATE) 21.1 MEQ/L (23-27); HEMOBLOGIN CONTENT 12.2 G/DL (14-18); INSTRUMENT SERIAL # 8083; METHEMOGLOBIN 0.1 % (0-3); MODE CMV; O2 CONTENT 16.9 VOL% (18-24); PCO2 (CO2 TENSION) 30 MMHG (35-45); PO2 (O2 TENSION) 117 MMHG (79-93); SAMPLE Arterial; TIDAL VOLUME 500 ML; pH 7.46 (7.37-7.43)
[2016-10-07 05:14] LABS: BASOPHILS 0.1 %; BASOPHILS ABSOLUTE 0.01 10/3/uL (0.0-0.16); EOSINOPHILS 0.6 %; HEMATOCRIT 33.8 % (40.0-51.0); HEMOGLOBIN 11.3 g/dL (13.6-17.8); IMMATURE GRANULOCYTES 0.7 %; IMMATURE GRANULOCYTES ABSOLUTE 0.12 10/3/uL (0.0-0.11); LYMPHOCYTES ABSOLUTE 1.78 10/3/uL (0.67-4.30); MEAN CORPUS HGB CONC 33.4 g/dL (32.0-36.0); MEAN CORPUSCULAR HEMOGLOB 31.9 pg (26.0-34.0); MEAN CORPUSCULAR VOLUME 95.5 fL (80-100); MEAN PLATELET VOLUME 10.8 fL (9.2-13.0); MONOCYTES 6.9 %; MONOCYTES ABSOLUTE 1.23 10/3/uL (0.21-1.20); NEUTROPHILS 81.7 %; NEUTROPHILS ABSOLUTE 14.61 10/3/uL (2.02-8.40); PLATELET COUNT 149 10/3/uL (150-400); RBC DISTRIBUTION WIDTH 17.8 % (12.0-16.0); RED CELL COUNT 3.54 10/6/uL (4.7-6.1); WHITE BLOOD CELLS 17.9 10/3/uL (4.5-10.5)
[2016-10-07 05:18] LABS: MANUAL DIFF NO %
[2016-10-07 05:36] LABS: A/G RATIO 0.7 (0.7-1.9); ALBUMIN 3.3 G/DL (3.5-5.0); CALCIUM, SERUM 9.9 MG/DL (8.5-10.4); CHLORIDE, SERUM 97 MMOL/L (96-112); CO2 (CARBON DIOXIDE) 22 MMOL/L (24-34); GLOBULIN 4.8 G/DL (2.5-4.1); SGOT(AST) 13 U/L (5-40); SGPT(ALT) 18 U/L (5-65); SODIUM, SERUM 138 MMOL/L (135-148); TOTAL BILIRUBIN 1.1 MG/DL (0-1.2); TOTAL PROTEIN 8.1 G/DL (6.0-8.5)
[2016-10-07 05:46] LABS: ALKALINE PHOSPHATASE 184 U/L (45-117); BUN (BLOOD UREA NITROGEN) 34 MG/DL (6-23); CREATININE 4.13 MG/DL (0.70-1.30); DEPAKENE (VALPROIC ACID) 52.7 MCG/ML (50.0-100.0); GFR AFRICAN AMERICAN 17 ML/MIN (>=60); GFR NON AFRICAN AMERICAN 15 ML/MIN (>=60); GLUCOSE, SERUM 177 MG/DL (60-99); PHOSPHORUS, SERUM 3.9 MG/DL (2.5-4.5)
[2016-10-07 07:15] LABS: PROCALCITONIN 7.19 ng/mL (<0.5)
[2016-10-07 10:12] LABS: BASOPHILS 0.1 %; BASOPHILS ABSOLUTE 0.01 10/3/uL (0.0-0.16); EOSINOPHILS 0.6 %; EOSINOPHILS ABSOLUTE 0.12 10/3/uL (0.0-0.53); HEMATOCRIT 32.2 % (40.0-51.0); HEMOGLOBIN 10.7 g/dL (13.6-17.8); IMMATURE GRANULOCYTES 0.8 %; IMMATURE GRANULOCYTES ABSOLUTE 0.16 10/3/uL (0.0-0.11); LYMPHOCYTES 7.4 %; LYMPHOCYTES ABSOLUTE 1.42 10/3/uL (0.67-4.30); MEAN CORPUS HGB CONC 33.2 g/dL (32.0-36.0); MEAN CORPUSCULAR HEMOGLOB 31.4 pg (26.0-34.0); MEAN CORPUSCULAR VOLUME 94.4 fL (80-100); MEAN PLATELET VOLUME 10.5 fL (9.2-13.0); MONOCYTES 6.2 %; MONOCYTES ABSOLUTE 1.19 10/3/uL (0.21-1.20); NEUTROPHILS 84.9 %; NEUTROPHILS ABSOLUTE 16.38 10/3/uL (2.02-8.40); NUCLEATED RED BLOOD CELLS 0.8 /100WBC (0-0); PLATELET COUNT 120 10/3/uL (150-400); RBC DISTRIBUTION WIDTH 17.8 % (12.0-16.0); RED CELL COUNT 3.41 10/6/uL (4.7-6.1); WHITE BLOOD CELLS 19.3 10/3/uL (4.5-10.5)
[2016-10-07 10:13] LABS: MANUAL DIFF NO %
[2016-10-07 10:15] LABS: CHLORIDE, SERUM 97 MMOL/L (96-112); CO2 (CARBON DIOXIDE) 24 MMOL/L (24-34); GFR AFRICAN AMERICAN 23 ML/MIN (>=60); GFR NON AFRICAN AMERICAN 20 ML/MIN (>=60); GLUCOSE, SERUM 188 MG/DL (60-99); SODIUM, SERUM 134 MMOL/L (135-148)
[2016-10-07 10:16] LABS: BUN (BLOOD UREA NITROGEN) 26 MG/DL (6-23); CREATININE 3.21 MG/DL (0.70-1.30)
[2016-10-07 13:54] LABS: HEPARIN-INDUCED PLATELET AB NEGATIVE (NEGATIVE); HIT PATIENT O.D. 0.134 OD (0.000-0.299)
[2016-10-07 16:05] LABS: BASOPHILS 0.1 %; BASOPHILS ABSOLUTE 0.02 10/3/uL (0.0-0.16); EOSINOPHILS ABSOLUTE 0.15 10/3/uL (0.0-0.53); HEMATOCRIT 33.1 % (40.0-51.0); HEMOGLOBIN 10.8 g/dL (13.6-17.8); IMMATURE GRANULOCYTES 0.8 %; IMMATURE GRANULOCYTES ABSOLUTE 0.12 10/3/uL (0.0-0.11); LYMPHOCYTES ABSOLUTE 1.04 10/3/uL (0.67-4.30); MEAN CORPUS HGB CONC 32.6 g/dL (32.0-36.0); MEAN CORPUSCULAR HEMOGLOB 31.5 pg (26.0-34.0); MEAN CORPUSCULAR VOLUME 96.5 fL (80-100); MEAN PLATELET VOLUME 10.5 fL (9.2-13.0); MONOCYTES 7.4 %; NEUTROPHILS 83.7 %; NEUTROPHILS ABSOLUTE 12.39 10/3/uL (2.02-8.40); NUCLEATED RED BLOOD CELLS 0.5 /100WBC (0-0); PLATELET COUNT 101 10/3/uL (150-400); RBC DISTRIBUTION WIDTH 17.6 % (12.0-16.0); RED CELL COUNT 3.43 10/6/uL (4.7-6.1); WHITE BLOOD CELLS 14.8 10/3/uL (4.5-10.5)
[2016-10-07 16:08] LABS: MANUAL DIFF NO %
[2016-10-07 16:11] LABS: BUN (BLOOD UREA NITROGEN) 24 MG/DL (6-23); CALCIUM, SERUM 9.3 MG/DL (8.5-10.4); CHLORIDE, SERUM 96 MMOL/L (96-112); CO2 (CARBON DIOXIDE) 27 MMOL/L (24-34); CREATININE 2.46 MG/DL (0.70-1.30); GFR AFRICAN AMERICAN 32 ML/MIN (>=60); GFR NON AFRICAN AMERICAN 28 ML/MIN (>=60); GLUCOSE, SERUM 340 MG/DL (60-99); PHOSPHORUS, SERUM 2.7 MG/DL (2.5-4.5); POTASSIUM, SERUM 4.1 MMOL/L (3.5-5.3); SODIUM, SERUM 133 MMOL/L (135-148)
[2016-10-07 22:42] LABS: BASOPHILS 0.1 %; BASOPHILS ABSOLUTE 0.02 10/3/uL (0.0-0.16); EOSINOPHILS 1.5 %; EOSINOPHILS ABSOLUTE 0.21 10/3/uL (0.0-0.53); HEMATOCRIT 31.9 % (40.0-51.0); HEMOGLOBIN 10.4 g/dL (13.6-17.8); IMMATURE GRANULOCYTES 0.8 %; IMMATURE GRANULOCYTES ABSOLUTE 0.12 10/3/uL (0.0-0.11); LYMPHOCYTES 11.7 %; LYMPHOCYTES ABSOLUTE 1.68 10/3/uL (0.67-4.30); MANUAL DIFF NO %; MEAN CORPUS HGB CONC 32.6 g/dL (32.0-36.0); MEAN CORPUSCULAR HEMOGLOB 31.5 pg (26.0-34.0); MEAN CORPUSCULAR VOLUME 96.7 fL (80-100); MEAN PLATELET VOLUME 10.8 fL (9.2-13.0); MONOCYTES 7.1 %; MONOCYTES ABSOLUTE 1.01 10/3/uL (0.21-1.20); NEUTROPHILS 78.8 %; NEUTROPHILS ABSOLUTE 11.27 10/3/uL (2.02-8.40); NUCLEATED RED BLOOD CELLS 0.4 /100WBC (0-0); PLATELET COUNT 94 10/3/uL (150-400); RBC DISTRIBUTION WIDTH 17.8 % (12.0-16.0); WHITE BLOOD CELLS 14.3 10/3/uL (4.5-10.5)
[2016-10-07 22:49] LABS: CALCIUM, SERUM 9.4 MG/DL (8.5-10.4); CHLORIDE, SERUM 96 MMOL/L (96-112); CO2 (CARBON DIOXIDE) 27 MMOL/L (24-34); CREATININE 2.21 MG/DL (0.70-1.30); GFR AFRICAN AMERICAN 36 ML/MIN (>=60); GFR NON AFRICAN AMERICAN 31 ML/MIN (>=60); POTASSIUM, SERUM 3.8 MMOL/L (3.5-5.3); SODIUM, SERUM 134 MMOL/L (135-148)
[2016-10-07 22:50] LABS: BUN (BLOOD UREA NITROGEN) 20 MG/DL (6-23); GLUCOSE, SERUM 228 MG/DL (60-99)
[2016-10-08 04:13] LABS: BE (BASE EXCESS) 0.2 MEQ/L (0 +/- 2.5); CARBOXYHEMOGLOBIN 0.8 % (0-3); HCO3 (ACTUAL BICARBONATE) 24.1 MEQ/L (23-27); HEMOBLOGIN CONTENT 11.2 G/DL (14-18); INSTRUMENT SERIAL # 8083; METHEMOGLOBIN 0.2 % (0-3); O2 CONTENT 15.6 VOL% (18-24); PCO2 (CO2 TENSION) 36 MMHG (35-45); PO2 (O2 TENSION) 128 MMHG (79-93); pH 7.44 (7.37-7.43)
[2016-10-08 04:14] LABS: MODE CMV; OPERATOR ID 13861; SAMPLE Arterial; TIDAL VOLUME 550 ML
[2016-10-08 05:09] LABS: BASOPHILS 0.1 %; BASOPHILS ABSOLUTE 0.02 10/3/uL (0.0-0.16); EOSINOPHILS 2.1 %; EOSINOPHILS ABSOLUTE 0.28 10/3/uL (0.0-0.53); HEMATOCRIT 32.6 % (40.0-51.0); HEMOGLOBIN 10.4 g/dL (13.6-17.8); IMMATURE GRANULOCYTES ABSOLUTE 0.13 10/3/uL (0.0-0.11); LYMPHOCYTES 8.5 %; LYMPHOCYTES ABSOLUTE 1.14 10/3/uL (0.67-4.30); MANUAL DIFF NO %; MEAN CORPUS HGB CONC 31.9 g/dL (32.0-36.0); MEAN CORPUSCULAR VOLUME 97.3 fL (80-100); MEAN PLATELET VOLUME 11.5 fL (9.2-13.0); MONOCYTES 8.6 %; MONOCYTES ABSOLUTE 1.15 10/3/uL (0.21-1.20); NEUTROPHILS 79.7 %; NEUTROPHILS ABSOLUTE 10.68 10/3/uL (2.02-8.40); NUCLEATED RED BLOOD CELLS 0.6 /100WBC (0-0); PLATELET COUNT 90 10/3/uL (150-400); RED CELL COUNT 3.35 10/6/uL (4.7-6.1); WHITE BLOOD CELLS 13.4 10/3/uL (4.5-10.5)
[2016-10-08 05:14] LABS: ALBUMIN 2.8 G/DL (3.5-5.0); BUN (BLOOD UREA NITROGEN) 20 MG/DL (6-23); CALCIUM, SERUM 9.6 MG/DL (8.5-10.4); CHLORIDE, SERUM 96 MMOL/L (96-112); CO2 (CARBON DIOXIDE) 28 MMOL/L (24-34); CREATININE 1.95 MG/DL (0.70-1.30); GFR AFRICAN AMERICAN 42 ML/MIN (>=60); GFR NON AFRICAN AMERICAN 37 ML/MIN (>=60); GLUCOSE, SERUM 243 MG/DL (60-99); PHOSPHORUS, SERUM 3.1 MG/DL (2.5-4.5); POTASSIUM, SERUM 3.9 MMOL/L (3.5-5.3); SODIUM, SERUM 135 MMOL/L (135-148)
[2016-10-08 05:45] LABS: DEPAKENE (VALPROIC ACID) 50.2 MCG/ML (50.0-100.0)
[2016-10-08 06:35] LABS: PROCALCITONIN 5.31 ng/mL (<0.5)
[2016-10-08 11:31] LABS: BASOPHILS 0.1 %; BASOPHILS ABSOLUTE 0.02 10/3/uL (0.0-0.16); EOSINOPHILS 2.3 %; EOSINOPHILS ABSOLUTE 0.31 10/3/uL (0.0-0.53); HEMATOCRIT 32.4 % (40.0-51.0); HEMOGLOBIN 10.4 g/dL (13.6-17.8); IMMATURE GRANULOCYTES ABSOLUTE 0.14 10/3/uL (0.0-0.11); LYMPHOCYTES 9.4 %; LYMPHOCYTES ABSOLUTE 1.27 10/3/uL (0.67-4.30); MEAN CORPUS HGB CONC 32.1 g/dL (32.0-36.0); MEAN CORPUSCULAR HEMOGLOB 31.4 pg (26.0-34.0); MEAN CORPUSCULAR VOLUME 97.9 fL (80-100); MEAN PLATELET VOLUME 11.1 fL (9.2-13.0); MONOCYTES 8.7 %; MONOCYTES ABSOLUTE 1.17 10/3/uL (0.21-1.20); NEUTROPHILS 78.5 %; NUCLEATED RED BLOOD CELLS 0.5 /100WBC (0-0); PLATELET COUNT 77 10/3/uL (150-400); RBC DISTRIBUTION WIDTH 17.6 % (12.0-16.0); RED CELL COUNT 3.31 10/6/uL (4.7-6.1); WHITE BLOOD CELLS 13.5 10/3/uL (4.5-10.5)
[2016-10-08 11:32] LABS: MANUAL DIFF NO %
[2016-10-08 11:34] LABS: BUN (BLOOD UREA NITROGEN) 16 MG/DL (6-23); CALCIUM, SERUM 9.5 MG/DL (8.5-10.4); CHLORIDE, SERUM 97 MMOL/L (96-112); CO2 (CARBON DIOXIDE) 26 MMOL/L (24-34); CREATININE 1.59 MG/DL (0.70-1.30); GFR AFRICAN AMERICAN 54 ML/MIN (>=60); GFR NON AFRICAN AMERICAN 47 ML/MIN (>=60); GLUCOSE, SERUM 149 MG/DL (60-99); POTASSIUM, SERUM 3.9 MMOL/L (3.5-5.3); SODIUM, SERUM 138 MMOL/L (135-148)
[2016-10-08 11:40] LABS: ANISOCYTOSIS 1+ (5-10/OIF) (0-5/OIF); PLATELET ESTIMATE DEC (ADEQUATE)
[2016-10-08 15:54] LABS: BASOPHILS 0.1 %; BASOPHILS ABSOLUTE 0.02 10/3/uL (0.0-0.16); EOSINOPHILS 1.5 %; EOSINOPHILS ABSOLUTE 0.24 10/3/uL (0.0-0.53); HEMATOCRIT 31.9 % (40.0-51.0); HEMOGLOBIN 10.1 g/dL (13.6-17.8); IMMATURE GRANULOCYTES 1.6 %; IMMATURE GRANULOCYTES ABSOLUTE 0.25 10/3/uL (0.0-0.11); LYMPHOCYTES 7.9 %; LYMPHOCYTES ABSOLUTE 1.25 10/3/uL (0.67-4.30); MANUAL DIFF NO %; MEAN CORPUS HGB CONC 31.7 g/dL (32.0-36.0); MEAN CORPUSCULAR HEMOGLOB 31.2 pg (26.0-34.0); MEAN CORPUSCULAR VOLUME 98.5 fL (80-100); MEAN PLATELET VOLUME 11.3 fL (9.2-13.0); MONOCYTES 6.6 %; MONOCYTES ABSOLUTE 1.05 10/3/uL (0.21-1.20); NEUTROPHILS 82.3 %; NEUTROPHILS ABSOLUTE 13.11 10/3/uL (2.02-8.40); NUCLEATED RED BLOOD CELLS 0.2 /100WBC (0-0); PLATELET COUNT 91 10/3/uL (150-400); RBC DISTRIBUTION WIDTH 17.7 % (12.0-16.0); RED CELL COUNT 3.24 10/6/uL (4.7-6.1); WHITE BLOOD CELLS 15.9 10/3/uL (4.5-10.5)
[2016-10-08 15:58] LABS: BUN (BLOOD UREA NITROGEN) 19 MG/DL (6-23); CALCIUM, SERUM 10.2 MG/DL (8.5-10.4); CHLORIDE, SERUM 97 MMOL/L (96-112); CO2 (CARBON DIOXIDE) 26 MMOL/L (24-34); CREATININE 1.76 MG/DL (0.70-1.30); GFR AFRICAN AMERICAN 48 ML/MIN (>=60); GFR NON AFRICAN AMERICAN 41 ML/MIN (>=60); POTASSIUM, SERUM 4.2 MMOL/L (3.5-5.3); SODIUM, SERUM 137 MMOL/L (135-148)
[2016-10-08 15:59] LABS: GLUCOSE, SERUM 297 MG/DL (60-99)
[2016-10-08 16:57] LABS: VANCOMYCIN TROUGH 21.1 MCG/ML (10.0-20.0)
[2016-10-08 22:36] LABS: BASOPHILS 0.1 %; BASOPHILS ABSOLUTE 0.01 10/3/uL (0.0-0.16); EOSINOPHILS 1.8 %; EOSINOPHILS ABSOLUTE 0.28 10/3/uL (0.0-0.53); HEMOGLOBIN 9.9 g/dL (13.6-17.8); IMMATURE GRANULOCYTES 1.6 %; IMMATURE GRANULOCYTES ABSOLUTE 0.26 10/3/uL (0.0-0.11); LYMPHOCYTES 8.4 %; LYMPHOCYTES ABSOLUTE 1.33 10/3/uL (0.67-4.30); MEAN CORPUS HGB CONC 31.9 g/dL (32.0-36.0); MEAN CORPUSCULAR HEMOGLOB 31.3 pg (26.0-34.0); MEAN CORPUSCULAR VOLUME 98.1 fL (80-100); MEAN PLATELET VOLUME 11.1 fL (9.2-13.0); MONOCYTES 8.2 %; MONOCYTES ABSOLUTE 1.29 10/3/uL (0.21-1.20); NEUTROPHILS 79.9 %; NEUTROPHILS ABSOLUTE 12.62 10/3/uL (2.02-8.40); PLATELET COUNT 81 10/3/uL (150-400); RBC DISTRIBUTION WIDTH 17.7 % (12.0-16.0); RED CELL COUNT 3.16 10/6/uL (4.7-6.1); WHITE BLOOD CELLS 15.8 10/3/uL (4.5-10.5)
[2016-10-08 22:37] LABS: MANUAL DIFF NO %
[2016-10-08 22:45] LABS: BUN (BLOOD UREA NITROGEN) 17 MG/DL (6-23); CALCIUM, SERUM 9.9 MG/DL (8.5-10.4); CHLORIDE, SERUM 99 MMOL/L (96-112); CO2 (CARBON DIOXIDE) 28 MMOL/L (24-34); CREATININE 1.68 MG/DL (0.70-1.30); GFR AFRICAN AMERICAN 51 ML/MIN (>=60); GFR NON AFRICAN AMERICAN 44 ML/MIN (>=60); GLUCOSE, SERUM 239 MG/DL (60-99); POTASSIUM, SERUM 3.9 MMOL/L (3.5-5.3); SODIUM, SERUM 138 MMOL/L (135-148)
[2016-10-09 04:11] LABS: BASOPHILS 0.3 %; BASOPHILS ABSOLUTE 0.04 10/3/uL (0.0-0.16); EOSINOPHILS 1.9 %; EOSINOPHILS ABSOLUTE 0.28 10/3/uL (0.0-0.53); HEMATOCRIT 31.2 % (40.0-51.0); HEMOGLOBIN 9.8 g/dL (13.6-17.8); IMMATURE GRANULOCYTES 1.7 %; IMMATURE GRANULOCYTES ABSOLUTE 0.26 10/3/uL (0.0-0.11); LYMPHOCYTES 8.6 %; LYMPHOCYTES ABSOLUTE 1.29 10/3/uL (0.67-4.30); MEAN CORPUS HGB CONC 31.4 g/dL (32.0-36.0); MEAN CORPUSCULAR HEMOGLOB 30.9 pg (26.0-34.0); MEAN CORPUSCULAR VOLUME 98.4 fL (80-100); MEAN PLATELET VOLUME 11.8 fL (9.2-13.0); MONOCYTES 7.1 %; MONOCYTES ABSOLUTE 1.07 10/3/uL (0.21-1.20); NEUTROPHILS 80.4 %; NEUTROPHILS ABSOLUTE 12.06 10/3/uL (2.02-8.40); PLATELET COUNT 75 10/3/uL (150-400); RBC DISTRIBUTION WIDTH 17.5 % (12.0-16.0); RED CELL COUNT 3.17 10/6/uL (4.7-6.1)
[2016-10-09 04:12] LABS: MANUAL DIFF NO %
[2016-10-09 04:21] LABS: ALLENS TEST Pos; BE (BASE EXCESS) 1.9 MEQ/L (0 +/- 2.5); CARBOXYHEMOGLOBIN 0.6 % (0-3); HCO3 (ACTUAL BICARBONATE) 26.1 MEQ/L (23-27); HEMOBLOGIN CONTENT 12.7 G/DL (14-18); INSTRUMENT SERIAL # 8083; METHEMOGLOBIN 0.1 % (0-3); MODE CMV; O2 CONTENT 17.7 VOL% (18-24); OPERATOR ID 30013; PCO2 (CO2 TENSION) 39 MMHG (35-45); PO2 (O2 TENSION) 133 MMHG (79-93); SAMPLE Arterial; TIDAL VOLUME 550 ML; pH 7.44 (7.37-7.43)
[2016-10-09 04:22] LABS: BUN (BLOOD UREA NITROGEN) 16 MG/DL (6-23); CHLORIDE, SERUM 97 MMOL/L (96-112); CO2 (CARBON DIOXIDE) 30 MMOL/L (24-34); CREATININE 1.66 MG/DL (0.70-1.30); GFR AFRICAN AMERICAN 52 ML/MIN (>=60); GFR NON AFRICAN AMERICAN 44 ML/MIN (>=60); GLUCOSE, SERUM 239 MG/DL (60-99); PHOSPHORUS, SERUM 2.8 MG/DL (2.5-4.5); POTASSIUM, SERUM 3.9 MMOL/L (3.5-5.3); SODIUM, SERUM 138 MMOL/L (135-148)
[2016-10-09 04:32] LABS: CALCIUM, SERUM 9.9 MG/DL (8.5-10.4)
[2016-10-09 04:43] LABS: ANISOCYTOSIS 1+ (5-10/OIF) (0-5/OIF); PLATELET ESTIMATE DEC (ADEQUATE)
[2016-10-09 06:11] LABS: DEPAKENE (VALPROIC ACID) 67.1 MCG/ML (50.0-100.0)
[2016-10-09 06:45] LABS: PROCALCITONIN 4.17 ng/mL (<0.5)
[2016-10-09 10:01] LABS: BASOPHILS 0.3 %; BASOPHILS ABSOLUTE 0.04 10/3/uL (0.0-0.16); EOSINOPHILS 2.3 %; EOSINOPHILS ABSOLUTE 0.35 10/3/uL (0.0-0.53); HEMATOCRIT 31.1 % (40.0-51.0); HEMOGLOBIN 9.7 g/dL (13.6-17.8); IMMATURE GRANULOCYTES 2.5 %; IMMATURE GRANULOCYTES ABSOLUTE 0.39 10/3/uL (0.0-0.11); LYMPHOCYTES ABSOLUTE 1.55 10/3/uL (0.67-4.30); MEAN CORPUS HGB CONC 31.2 g/dL (32.0-36.0); MEAN CORPUSCULAR HEMOGLOB 30.9 pg (26.0-34.0); MEAN PLATELET VOLUME 10.4 fL (9.2-13.0); MONOCYTES 7.8 %; NEUTROPHILS 77.1 %; NEUTROPHILS ABSOLUTE 11.93 10/3/uL (2.02-8.40); PLATELET COUNT 66 10/3/uL (150-400); RBC DISTRIBUTION WIDTH 17.6 % (12.0-16.0); RED CELL COUNT 3.14 10/6/uL (4.7-6.1); WHITE BLOOD CELLS 15.5 10/3/uL (4.5-10.5)
[2016-10-09 10:03] LABS: MANUAL DIFF NO %
[2016-10-09 10:19] LABS: BUN (BLOOD UREA NITROGEN) 14 MG/DL (6-23); CALCIUM, SERUM 9.1 MG/DL (8.5-10.4); CHLORIDE, SERUM 97 MMOL/L (96-112); CO2 (CARBON DIOXIDE) 28 MMOL/L (24-34); CREATININE 1.37 MG/DL (0.70-1.30); GFR AFRICAN AMERICAN 65 ML/MIN (>=60); GFR NON AFRICAN AMERICAN 56 ML/MIN (>=60); GLUCOSE, SERUM 140 MG/DL (60-99); POTASSIUM, SERUM 4.6 MMOL/L (3.5-5.3); SODIUM, SERUM 140 MMOL/L (135-148)
[2016-10-09 10:20] LABS: ANISOCYTOSIS 1+ (5-10/OIF) (0-5/OIF)
[2016-10-09 10:21] LABS: MACROCYTES 1+ (5-10/OIF) (0-5/OIF); PLATELET ESTIMATE DEC (ADEQUATE); POLYCHROMASIA 1+ (2-5/OIF) (0-1/OIF); TARGET CELLS OCC (1-2/OIF) (0-1/OIF)
[2016-10-09 10:22] LABS: SPHEROCYTES OCC (0-2/OIF)
[2016-10-09 10:27] LABS: TEARDROP SHAPED RBCS OCC (0-2/OIF)
[2016-10-09 17:08] LABS: BASOPHILS 0.2 %; BASOPHILS ABSOLUTE 0.04 10/3/uL (0.0-0.16); EOSINOPHILS 1.4 %; EOSINOPHILS ABSOLUTE 0.25 10/3/uL (0.0-0.53); HEMATOCRIT 29.5 % (40.0-51.0); HEMOGLOBIN 9.3 g/dL (13.6-17.8); IMMATURE GRANULOCYTES 1.9 %; IMMATURE GRANULOCYTES ABSOLUTE 0.33 10/3/uL (0.0-0.11); LYMPHOCYTES 6.7 %; LYMPHOCYTES ABSOLUTE 1.16 10/3/uL (0.67-4.30); MEAN CORPUS HGB CONC 31.5 g/dL (32.0-36.0); MEAN CORPUSCULAR HEMOGLOB 31.3 pg (26.0-34.0); MEAN CORPUSCULAR VOLUME 99.3 fL (80-100); MEAN PLATELET VOLUME 11.4 fL (9.2-13.0); MONOCYTES 5.9 %; MONOCYTES ABSOLUTE 1.02 10/3/uL (0.21-1.20); NEUTROPHILS 83.9 %; NEUTROPHILS ABSOLUTE 14.56 10/3/uL (2.02-8.40); PLATELET COUNT 69 10/3/uL (150-400); RBC DISTRIBUTION WIDTH 17.7 % (12.0-16.0); RED CELL COUNT 2.97 10/6/uL (4.7-6.1); WHITE BLOOD CELLS 17.4 10/3/uL (4.5-10.5)
[2016-10-09 17:12] LABS: MANUAL DIFF NO %
[2016-10-09 17:21] LABS: BUN (BLOOD UREA NITROGEN) 13 MG/DL (6-23); CALCIUM, SERUM 9.7 MG/DL (8.5-10.4); CHLORIDE, SERUM 96 MMOL/L (96-112); CO2 (CARBON DIOXIDE) 27 MMOL/L (24-34); CREATININE 1.42 MG/DL (0.70-1.30); GFR AFRICAN AMERICAN 62 ML/MIN (>=60); GFR NON AFRICAN AMERICAN 54 ML/MIN (>=60); GLUCOSE, SERUM 207 MG/DL (60-99); PHOSPHORUS, SERUM 2.4 MG/DL (2.5-4.5); SODIUM, SERUM 138 MMOL/L (135-148)
[2016-10-09 17:26] LABS: ANISOCYTOSIS 1+ (5-10/OIF) (0-5/OIF); PLATELET ESTIMATE DEC (ADEQUATE)
[2016-10-09 21:38] LABS: BASOPHILS 0.2 %; BASOPHILS ABSOLUTE 0.03 10/3/uL (0.0-0.16); EOSINOPHILS 1.5 %; EOSINOPHILS ABSOLUTE 0.22 10/3/uL (0.0-0.53); HEMATOCRIT 28.4 % (40.0-51.0); HEMOGLOBIN 9.1 g/dL (13.6-17.8); IMMATURE GRANULOCYTES 1.9 %; IMMATURE GRANULOCYTES ABSOLUTE 0.28 10/3/uL (0.0-0.11); LYMPHOCYTES 6.4 %; LYMPHOCYTES ABSOLUTE 0.95 10/3/uL (0.67-4.30); MEAN CORPUSCULAR HEMOGLOB 31.7 pg (26.0-34.0); MEAN PLATELET VOLUME 11.2 fL (9.2-13.0); MONOCYTES ABSOLUTE 1.05 10/3/uL (0.21-1.20); NEUTROPHILS ABSOLUTE 12.43 10/3/uL (2.02-8.40); PLATELET COUNT 64 10/3/uL (150-400); RBC DISTRIBUTION WIDTH 17.7 % (12.0-16.0); RED CELL COUNT 2.87 10/6/uL (4.7-6.1)
[2016-10-09 21:40] LABS: MANUAL DIFF NO %
[2016-10-09 21:49] LABS: BUN (BLOOD UREA NITROGEN) 11 MG/DL (6-23); CALCIUM, SERUM 9.5 MG/DL (8.5-10.4); CHLORIDE, SERUM 97 MMOL/L (96-112); CO2 (CARBON DIOXIDE) 28 MMOL/L (24-34); CREATININE 1.37 MG/DL (0.70-1.30); GFR AFRICAN AMERICAN 65 ML/MIN (>=60); GFR NON AFRICAN AMERICAN 56 ML/MIN (>=60); POTASSIUM, SERUM 3.6 MMOL/L (3.5-5.3); SODIUM, SERUM 140 MMOL/L (135-148)
[2016-10-09 21:52] LABS: GLUCOSE, SERUM 140 MG/DL (60-99)
[2016-10-09 22:00] LABS: PLATELET ESTIMATE DEC (ADEQUATE)
[2016-10-09 22:03] LABS: ANISOCYTOSIS 1+ (5-10/OIF) (0-5/OIF)
[2016-10-09 22:04] LABS: STOMATOCYTES 1+ (3-10/OIF) (0-2/OIF)
[2016-10-10 03:54] LABS: BE (BASE EXCESS) 2.6 MEQ/L (0 +/- 2.5); CARBOXYHEMOGLOBIN 0.2 % (0-3); HCO3 (ACTUAL BICARBONATE) 26.4 MEQ/L (23-27); INSTRUMENT SERIAL # 8083; MODE CMV; OPERATOR ID 30013; PCO2 (CO2 TENSION) 38 MMHG (35-45); PO2 (O2 TENSION) 87 MMHG (79-93); SAMPLE Arterial; TIDAL VOLUME 550 ML; pH 7.46 (7.37-7.43)
[2016-10-10 04:15] LABS: ALBUMIN 2.6 G/DL (3.5-5.0); BASOPHILS 0.2 %; BASOPHILS ABSOLUTE 0.03 10/3/uL (0.0-0.16); BUN (BLOOD UREA NITROGEN) 10 MG/DL (6-23); CALCIUM, SERUM 9.8 MG/DL (8.5-10.4); CHLORIDE, SERUM 99 MMOL/L (96-112); CO2 (CARBON DIOXIDE) 28 MMOL/L (24-34); CREATININE 1.38 MG/DL (0.70-1.30); EOSINOPHILS ABSOLUTE 0.18 10/3/uL (0.0-0.53); GFR AFRICAN AMERICAN 64 ML/MIN (>=60); GFR NON AFRICAN AMERICAN 56 ML/MIN (>=60); GLUCOSE, SERUM 150 MG/DL (60-99); HEMATOCRIT 29.5 % (40.0-51.0); HEMOGLOBIN 9.4 g/dL (13.6-17.8); IMMATURE GRANULOCYTES 1.7 %; LYMPHOCYTES 5.4 %; LYMPHOCYTES ABSOLUTE 0.96 10/3/uL (0.67-4.30); MEAN CORPUS HGB CONC 31.9 g/dL (32.0-36.0); MEAN CORPUSCULAR HEMOGLOB 31.5 pg (26.0-34.0); MEAN PLATELET VOLUME 11.3 fL (9.2-13.0); MONOCYTES 6.3 %; MONOCYTES ABSOLUTE 1.12 10/3/uL (0.21-1.20); NEUTROPHILS 85.4 %; PHOSPHORUS, SERUM 2.6 MG/DL (2.5-4.5); PLATELET COUNT 66 10/3/uL (150-400); POTASSIUM, SERUM 3.8 MMOL/L (3.5-5.3); RBC DISTRIBUTION WIDTH 17.7 % (12.0-16.0); RED CELL COUNT 2.98 10/6/uL (4.7-6.1); SODIUM, SERUM 139 MMOL/L (135-148); WHITE BLOOD CELLS 17.7 10/3/uL (4.5-10.5)
[2016-10-10 04:16] LABS: MANUAL DIFF NO %
[2016-10-10 05:56] LABS: PLATELET ESTIMATE DEC (ADEQUATE)
[2016-10-10 05:57] LABS: RBC MORPHOLOGY NORM (NORMAL)
[2016-10-10 06:09] LABS: PROCALCITONIN 2.42 ng/mL (<0.5)
[2016-10-10 09:26] LABS: BASOPHILS 0.2 %; BASOPHILS ABSOLUTE 0.03 10/3/uL (0.0-0.16); EOSINOPHILS 0.7 %; EOSINOPHILS ABSOLUTE 0.14 10/3/uL (0.0-0.53); HEMATOCRIT 27.5 % (40.0-51.0); HEMOGLOBIN 8.8 g/dL (13.6-17.8); IMMATURE GRANULOCYTES 1.6 %; IMMATURE GRANULOCYTES ABSOLUTE 0.32 10/3/uL (0.0-0.11); LYMPHOCYTES 3.4 %; LYMPHOCYTES ABSOLUTE 0.68 10/3/uL (0.67-4.30); MEAN CORPUSCULAR HEMOGLOB 31.7 pg (26.0-34.0); MEAN CORPUSCULAR VOLUME 98.9 fL (80-100); MEAN PLATELET VOLUME 11.3 fL (9.2-13.0); MONOCYTES 5.8 %; MONOCYTES ABSOLUTE 1.15 10/3/uL (0.21-1.20); NEUTROPHILS 88.3 %; NEUTROPHILS ABSOLUTE 17.61 10/3/uL (2.02-8.40); PLATELET COUNT 62 10/3/uL (150-400); RBC DISTRIBUTION WIDTH 17.6 % (12.0-16.0); RED CELL COUNT 2.78 10/6/uL (4.7-6.1); WHITE BLOOD CELLS 19.9 10/3/uL (4.5-10.5)
[2016-10-10 09:27] LABS: MANUAL DIFF NO %
[2016-10-10 09:38] LABS: BUN (BLOOD UREA NITROGEN) 10 MG/DL (6-23); CALCIUM, SERUM 9.7 MG/DL (8.5-10.4); CHLORIDE, SERUM 99 MMOL/L (96-112); CO2 (CARBON DIOXIDE) 27 MMOL/L (24-34); CREATININE 1.35 MG/DL (0.70-1.30); GFR AFRICAN AMERICAN 66 ML/MIN (>=60); GFR NON AFRICAN AMERICAN 57 ML/MIN (>=60); GLUCOSE, SERUM 161 MG/DL (60-99); POTASSIUM, SERUM 3.7 MMOL/L (3.5-5.3); SODIUM, SERUM 138 MMOL/L (135-148)
[2016-10-10 09:52] LABS: ANISOCYTOSIS 1+ (5-10/OIF) (0-5/OIF); MACROCYTES 1+ (5-10/OIF) (0-5/OIF); PLATELET ESTIMATE DEC (ADEQUATE); POLYCHROMASIA 1+ (2-5/OIF) (0-1/OIF)
[2016-10-10 10:16] LABS: DEPAKENE (VALPROIC ACID) 32.5 MCG/ML (50.0-100.0)
[2016-10-10 15:55] LABS: DEPAKENE (VALPROIC ACID) 60.6 MCG/ML (50.0-100.0)
[2016-10-10 17:06] LABS: BASOPHILS 0.1 %; BASOPHILS ABSOLUTE 0.02 10/3/uL (0.0-0.16); EOSINOPHILS 0.7 %; EOSINOPHILS ABSOLUTE 0.11 10/3/uL (0.0-0.53); HEMOGLOBIN 8.6 g/dL (13.6-17.8); IMMATURE GRANULOCYTES 1.8 %; IMMATURE GRANULOCYTES ABSOLUTE 0.28 10/3/uL (0.0-0.11); LYMPHOCYTES 5.1 %; LYMPHOCYTES ABSOLUTE 0.79 10/3/uL (0.67-4.30); MEAN CORPUS HGB CONC 31.9 g/dL (32.0-36.0); MEAN CORPUSCULAR HEMOGLOB 31.6 pg (26.0-34.0); MEAN CORPUSCULAR VOLUME 99.3 fL (80-100); MEAN PLATELET VOLUME 11.7 fL (9.2-13.0); MONOCYTES 6.9 %; MONOCYTES ABSOLUTE 1.07 10/3/uL (0.21-1.20); NEUTROPHILS 85.4 %; NEUTROPHILS ABSOLUTE 13.25 10/3/uL (2.02-8.40); PLATELET COUNT 60 10/3/uL (150-400); RBC DISTRIBUTION WIDTH 17.6 % (12.0-16.0); RED CELL COUNT 2.72 10/6/uL (4.7-6.1); WHITE BLOOD CELLS 15.5 10/3/uL (4.5-10.5)
[2016-10-10 17:07] LABS: MANUAL DIFF NO %
[2016-10-10 17:15] LABS: BUN (BLOOD UREA NITROGEN) 12 MG/DL (6-23); CALCIUM, SERUM 9.7 MG/DL (8.5-10.4); CHLORIDE, SERUM 98 MMOL/L (96-112); CO2 (CARBON DIOXIDE) 26 MMOL/L (24-34); CREATININE 1.37 MG/DL (0.70-1.30); GFR AFRICAN AMERICAN 65 ML/MIN (>=60); GFR NON AFRICAN AMERICAN 56 ML/MIN (>=60); GLUCOSE, SERUM 213 MG/DL (60-99); PHOSPHORUS, SERUM 2.9 MG/DL (2.5-4.5); SODIUM, SERUM 139 MMOL/L (135-148)
[2016-10-10 17:30] LABS: ANISOCYTOSIS 1+ (5-10/OIF) (0-5/OIF); PLATELET ESTIMATE DEC (ADEQUATE)
[2016-10-10 23:20] LABS: BASOPHILS 0.2 %; BASOPHILS ABSOLUTE 0.03 10/3/uL (0.0-0.16); EOSINOPHILS 0.6 %; HEMATOCRIT 25.9 % (40.0-51.0); HEMOGLOBIN 8.3 g/dL (13.6-17.8); IMMATURE GRANULOCYTES 2.5 %; IMMATURE GRANULOCYTES ABSOLUTE 0.42 10/3/uL (0.0-0.11); LYMPHOCYTES 4.7 %; LYMPHOCYTES ABSOLUTE 0.79 10/3/uL (0.67-4.30); MEAN CORPUSCULAR HEMOGLOB 31.7 pg (26.0-34.0); MEAN CORPUSCULAR VOLUME 98.9 fL (80-100); MEAN PLATELET VOLUME 11.4 fL (9.2-13.0); MONOCYTES 7.6 %; MONOCYTES ABSOLUTE 1.29 10/3/uL (0.21-1.20); NEUTROPHILS 84.4 %; NEUTROPHILS ABSOLUTE 14.35 10/3/uL (2.02-8.40); PLATELET COUNT 62 10/3/uL (150-400); RBC DISTRIBUTION WIDTH 17.6 % (12.0-16.0); RED CELL COUNT 2.62 10/6/uL (4.7-6.1)
[2016-10-10 23:24] LABS: MANUAL DIFF NO %
[2016-10-10 23:33] LABS: BUN (BLOOD UREA NITROGEN) 11 MG/DL (6-23); CALCIUM, SERUM 9.8 MG/DL (8.5-10.4); CHLORIDE, SERUM 97 MMOL/L (96-112); CO2 (CARBON DIOXIDE) 30 MMOL/L (24-34); CREATININE 1.32 MG/DL (0.70-1.30); GFR AFRICAN AMERICAN 68 ML/MIN (>=60); GFR NON AFRICAN AMERICAN 59 ML/MIN (>=60); POTASSIUM, SERUM 3.7 MMOL/L (3.5-5.3); SODIUM, SERUM 140 MMOL/L (135-148)
[2016-10-10 23:34] LABS: GLUCOSE, SERUM 165 MG/DL (60-99)
[2016-10-11 00:31] LABS: ANISOCYTOSIS 1+ (5-10/OIF) (0-5/OIF); PLATELET ESTIMATE DEC (ADEQUATE)
[2016-10-11 03:56] LABS: ALLENS TEST Pos; BE (BASE EXCESS) 4.4 MEQ/L (0 +/- 2.5); CARBOXYHEMOGLOBIN 1.2 % (0-3); INSTRUMENT SERIAL # 8083; METHEMOGLOBIN 0.3 % (0-3); MODE CMV; O2 CONTENT 12.5 VOL% (18-24); OPERATOR ID 17370; PCO2 (CO2 TENSION) 44 MMHG (35-45); PO2 (O2 TENSION) 112 MMHG (79-93); SAMPLE Arterial; TIDAL VOLUME 550 ML; pH 7.44 (7.37-7.43)
[2016-10-11 04:54] LABS: BASOPHILS 0.1 %; BASOPHILS ABSOLUTE 0.02 10/3/uL (0.0-0.16); EOSINOPHILS 0.6 %; HEMATOCRIT 25.5 % (40.0-51.0); HEMOGLOBIN 8.1 g/dL (13.6-17.8); IMMATURE GRANULOCYTES 2.4 %; IMMATURE GRANULOCYTES ABSOLUTE 0.39 10/3/uL (0.0-0.11); LYMPHOCYTES 4.8 %; LYMPHOCYTES ABSOLUTE 0.77 10/3/uL (0.67-4.30); MEAN CORPUS HGB CONC 31.8 g/dL (32.0-36.0); MEAN CORPUSCULAR HEMOGLOB 31.5 pg (26.0-34.0); MEAN CORPUSCULAR VOLUME 99.2 fL (80-100); MEAN PLATELET VOLUME 11.5 fL (9.2-13.0); MONOCYTES 7.2 %; MONOCYTES ABSOLUTE 1.15 10/3/uL (0.21-1.20); NEUTROPHILS 84.9 %; NEUTROPHILS ABSOLUTE 13.52 10/3/uL (2.02-8.40); PLATELET COUNT 67 10/3/uL (150-400); RBC DISTRIBUTION WIDTH 17.7 % (12.0-16.0); RED CELL COUNT 2.57 10/6/uL (4.7-6.1)
[2016-10-11 04:56] LABS: MANUAL DIFF NO %
[2016-10-11 05:05] LABS: ALBUMIN 2.4 G/DL (3.5-5.0); BUN (BLOOD UREA NITROGEN) 11 MG/DL (6-23); CALCIUM, SERUM 10.1 MG/DL (8.5-10.4); CHLORIDE, SERUM 101 MMOL/L (96-112); CO2 (CARBON DIOXIDE) 30 MMOL/L (24-34); CREATININE 1.37 MG/DL (0.70-1.30); GFR AFRICAN AMERICAN 65 ML/MIN (>=60); GFR NON AFRICAN AMERICAN 56 ML/MIN (>=60); PHOSPHORUS, SERUM 2.3 MG/DL (2.5-4.5); SODIUM, SERUM 141 MMOL/L (135-148)
[2016-10-11 05:06] LABS: CPK 30 U/L (0-200); GLUCOSE, SERUM 118 MG/DL (60-99)
[2016-10-11 06:34] LABS: PROCALCITONIN 1.54 ng/mL (<0.5)
[2016-10-11 06:43] LABS: BAND NEUTROPHILS 2 %; IMMATURE GRANS ABSOLUTE (CALC) 0.32 10/3/uL (0.0-0.11); LYMPHOCYTES 8 %; LYMPHOCYTES ABSOLUTE (CALC) 1.28 10/3/uL (0.67-4.30); METAMYELOCYTES 2 %; MONOCYTES 2 %; MONOCYTES ABSOLUTE (CALC) 0.32 10/3/uL (0.21-1.20); NEUTROPHILS ABSOLUTE (CALC) 14.08 10/3/uL (2.02-8.40); SEGMENTED NEUTROPHIL (0) 86 %; TOTAL NUCLEATED CELLS 100
[2016-10-11 06:45] LABS: ANISOCYTOSIS 1+ (5-10/OIF) (0-5/OIF); PLATELET ESTIMATE DEC (ADEQUATE); SPHEROCYTES FEW (3-10/OIF)
[2016-10-11 09:58] LABS: BASOPHILS 0.2 %; BASOPHILS ABSOLUTE 0.03 10/3/uL (0.0-0.16); EOSINOPHILS 0.8 %; EOSINOPHILS ABSOLUTE 0.15 10/3/uL (0.0-0.53); HEMATOCRIT 25.1 % (40.0-51.0); IMMATURE GRANULOCYTES 2.8 %; LYMPHOCYTES ABSOLUTE 1.08 10/3/uL (0.67-4.30); MEAN CORPUS HGB CONC 31.9 g/dL (32.0-36.0); MEAN CORPUSCULAR HEMOGLOB 31.6 pg (26.0-34.0); MEAN CORPUSCULAR VOLUME 99.2 fL (80-100); MEAN PLATELET VOLUME 12.3 fL (9.2-13.0); MONOCYTES 7.9 %; MONOCYTES ABSOLUTE 1.43 10/3/uL (0.21-1.20); NEUTROPHILS 82.3 %; NEUTROPHILS ABSOLUTE 14.91 10/3/uL (2.02-8.40); PLATELET COUNT 81 10/3/uL (150-400); RBC DISTRIBUTION WIDTH 17.4 % (12.0-16.0); RED CELL COUNT 2.53 10/6/uL (4.7-6.1); WHITE BLOOD CELLS 18.1 10/3/uL (4.5-10.5)
[2016-10-11 09:59] LABS: MANUAL DIFF NO %
[2016-10-11 10:13] LABS: BUN (BLOOD UREA NITROGEN) 10 MG/DL (6-23); CALCIUM, SERUM 10.2 MG/DL (8.5-10.4); CHLORIDE, SERUM 100 MMOL/L (96-112); CO2 (CARBON DIOXIDE) 28 MMOL/L (24-34); CREATININE 1.31 MG/DL (0.70-1.30); GFR AFRICAN AMERICAN 69 ML/MIN (>=60); GFR NON AFRICAN AMERICAN 59 ML/MIN (>=60); GLUCOSE, SERUM 240 MG/DL (60-99); POTASSIUM, SERUM 4.1 MMOL/L (3.5-5.3); SODIUM, SERUM 139 MMOL/L (135-148)
[2016-10-11 12:25] LABS: DEPAKENE (VALPROIC ACID) 35.6 MCG/ML (50.0-100.0)
[2016-10-11 17:17] LABS: HEMOGLOBIN 8.4 g/dL (13.6-17.8); MEAN CORPUS HGB CONC 32.3 g/dL (32.0-36.0); MEAN CORPUSCULAR HEMOGLOB 31.8 pg (26.0-34.0); MEAN CORPUSCULAR VOLUME 98.5 fL (80-100); MEAN PLATELET VOLUME 10.8 fL (9.2-13.0); PLATELET COUNT 89 10/3/uL (150-400); RBC DISTRIBUTION WIDTH 17.6 % (12.0-16.0); RED CELL COUNT 2.64 10/6/uL (4.7-6.1); WHITE BLOOD CELLS 23.5 10/3/uL (4.5-10.5)
[2016-10-11 17:19] LABS: MANUAL DIFF YES %
[2016-10-11 17:24] LABS: BUN (BLOOD UREA NITROGEN) 10 MG/DL (6-23); CALCIUM, SERUM 10.4 MG/DL (8.5-10.4); CHLORIDE, SERUM 103 MMOL/L (96-112); CO2 (CARBON DIOXIDE) 25 MMOL/L (24-34); CREATININE 1.26 MG/DL (0.70-1.30); GFR AFRICAN AMERICAN 72 ML/MIN (>=60); GFR NON AFRICAN AMERICAN 62 ML/MIN (>=60); PHOSPHORUS, SERUM 2.2 MG/DL (2.5-4.5); POTASSIUM, SERUM 4.1 MMOL/L (3.5-5.3); SODIUM, SERUM 140 MMOL/L (135-148)
[2016-10-11 17:25] LABS: GLUCOSE, SERUM 120 MG/DL (60-99)
[2016-10-11 17:35] LABS: ANISOCYTOSIS 1+ (5-10/OIF) (0-5/OIF); EOSINOPHILS 1 %; EOSINOPHILS ABSOLUTE (CALC) 0.24 10/3/uL (0.0-0.53); IMMATURE GRANS ABSOLUTE (CALC) 0.24 10/3/uL (0.0-0.11); LYMPHOCYTES 8 %; LYMPHOCYTES ABSOLUTE (CALC) 1.88 10/3/uL (0.67-4.30); METAMYELOCYTES 1 %; MONOCYTES 3 %; MONOCYTES ABSOLUTE (CALC) 0.71 10/3/uL (0.21-1.20); NEUTROPHILS ABSOLUTE (CALC) 20.45 10/3/uL (2.02-8.40); POLYCHROMASIA 1+ (2-5/OIF) (0-1/OIF); SEGMENTED NEUTROPHIL (0) 87 %; TOTAL NUCLEATED CELLS 100
[2016-10-11 17:38] LABS: TOXIC GRANULATION SLT
[2016-10-11 22:56] LABS: HEMATOCRIT 24.5 % (40.0-51.0); HEMOGLOBIN 7.5 g/dL (13.6-17.8); MEAN CORPUSCULAR HEMOGLOB 30.6 pg (26.0-34.0); MEAN PLATELET VOLUME 11.3 fL (9.2-13.0); PLATELET COUNT 78 10/3/uL (150-400); RBC DISTRIBUTION WIDTH 17.4 % (12.0-16.0); RED CELL COUNT 2.45 10/6/uL (4.7-6.1); WHITE BLOOD CELLS 16.7 10/3/uL (4.5-10.5)
[2016-10-11 22:57] LABS: MANUAL DIFF YES %; MEAN CORPUS HGB CONC 30.6 g/dL (32.0-36.0)
[2016-10-11 23:02] LABS: CALCIUM, SERUM 10.1 MG/DL (8.5-10.4); CHLORIDE, SERUM 103 MMOL/L (96-112); CO2 (CARBON DIOXIDE) 25 MMOL/L (24-34); CREATININE 1.35 MG/DL (0.70-1.30); GFR AFRICAN AMERICAN 66 ML/MIN (>=60); GFR NON AFRICAN AMERICAN 57 ML/MIN (>=60); POTASSIUM, SERUM 3.8 MMOL/L (3.5-5.3); SODIUM, SERUM 140 MMOL/L (135-148)
[2016-10-11 23:03] LABS: BUN (BLOOD UREA NITROGEN) 14 MG/DL (6-23); GLUCOSE, SERUM 263 MG/DL (60-99)
[2016-10-11 23:11] LABS: ANISOCYTOSIS 1+ (5-10/OIF) (0-5/OIF); BAND NEUTROPHILS 2 %; IMMATURE GRANS ABSOLUTE (CALC) 0.17 10/3/uL (0.0-0.11); LYMPHOCYTES 3 %; MACROCYTES 1+ (5-10/OIF) (0-5/OIF); METAMYELOCYTES 1 %; MONOCYTES 3 %; NEUTROPHILS ABSOLUTE (CALC) 15.53 10/3/uL (2.02-8.40); PLATELET ESTIMATE DEC (ADEQUATE); SEGMENTED NEUTROPHIL (0) 91 %; TOTAL NUCLEATED CELLS 100
[2016-10-12 04:01] LABS: ALLENS TEST Pos; BE (BASE EXCESS) -3.2 MEQ/L (0 +/- 2.5); CARBOXYHEMOGLOBIN 1.2 % (0-3); HCO3 (ACTUAL BICARBONATE) 21.1 MEQ/L (23-27); HEMOBLOGIN CONTENT 8.3 G/DL (14-18); INSTRUMENT SERIAL # 8083; METHEMOGLOBIN 0.3 % (0-3); MODE CMV; O2 CONTENT 11.5 VOL% (18-24); OPERATOR ID 17370; PCO2 (CO2 TENSION) 35 MMHG (35-45); PO2 (O2 TENSION) 106 MMHG (79-93); SAMPLE Arterial; TIDAL VOLUME 550 ML
[2016-10-12 05:39] LABS: HEMATOCRIT 24.8 % (40.0-51.0); HEMOGLOBIN 7.8 g/dL (13.6-17.8); MEAN CORPUS HGB CONC 31.5 g/dL (32.0-36.0); MEAN CORPUSCULAR HEMOGLOB 31.5 pg (26.0-34.0); MEAN PLATELET VOLUME 11.7 fL (9.2-13.0); PLATELET COUNT 91 10/3/uL (150-400); RBC DISTRIBUTION WIDTH 17.3 % (12.0-16.0); RED CELL COUNT 2.48 10/6/uL (4.7-6.1); WHITE BLOOD CELLS 15.8 10/3/uL (4.5-10.5)
[2016-10-12 05:41] LABS: MANUAL DIFF YES %
[2016-10-12 06:05] LABS: BUN (BLOOD UREA NITROGEN) 13 MG/DL (6-23); CALCIUM, SERUM 9.8 MG/DL (8.5-10.4); CHLORIDE, SERUM 105 MMOL/L (96-112); CO2 (CARBON DIOXIDE) 22 MMOL/L (24-34); CREATININE 1.18 MG/DL (0.70-1.30); GFR AFRICAN AMERICAN 78 ML/MIN (>=60); GFR NON AFRICAN AMERICAN 67 ML/MIN (>=60); PHOSPHORUS, SERUM 2.7 MG/DL (2.5-4.5); POTASSIUM, SERUM 3.8 MMOL/L (3.5-5.3); SODIUM, SERUM 142 MMOL/L (135-148)
[2016-10-12 06:07] LABS: DEPAKENE (VALPROIC ACID) 13.8 MCG/ML (50.0-100.0); GLUCOSE, SERUM 160 MG/DL (60-99)
[2016-10-12 06:08] LABS: BAND NEUTROPHILS 5 %; IMMATURE GRANS ABSOLUTE (CALC) 0.32 10/3/uL (0.0-0.11); LYMPHOCYTES 10 %; LYMPHOCYTES ABSOLUTE (CALC) 1.58 10/3/uL (0.67-4.30); METAMYELOCYTES 2 %; MONOCYTES 3 %; MONOCYTES ABSOLUTE (CALC) 0.47 10/3/uL (0.21-1.20); NEUTROPHILS ABSOLUTE (CALC) 13.43 10/3/uL (2.02-8.40); PLATELET ESTIMATE DEC (ADEQUATE); SEGMENTED NEUTROPHIL (0) 80 %; TOTAL NUCLEATED CELLS 100
[2016-10-12 06:09] LABS: ANISOCYTOSIS 1+ (5-10/OIF) (0-5/OIF); GIANT PLATELET RARE; HYPOCHROMIA 1+ (3-10/OIF) (0-2/OIF); MACROCYTES 1+ (5-10/OIF) (0-5/OIF)
[2016-10-12 06:20] LABS: B NATRIURETIC PEPTIDE (BNP) 204.6 PG/ML (< 100.0)
[2016-10-12 06:43] LABS: CALCIUM IONIZED 5.09 MG/DL (3.80-4.80)
[2016-10-12 10:08] LABS: HEMATOCRIT 23.6 % (40.0-51.0); HEMOGLOBIN 7.6 g/dL (13.6-17.8); MANUAL DIFF YES %; MEAN CORPUS HGB CONC 32.2 g/dL (32.0-36.0); MEAN CORPUSCULAR HEMOGLOB 32.1 pg (26.0-34.0); MEAN CORPUSCULAR VOLUME 99.6 fL (80-100); MEAN PLATELET VOLUME 11.7 fL (9.2-13.0); PLATELET COUNT 96 10/3/uL (150-400); RBC DISTRIBUTION WIDTH 17.3 % (12.0-16.0); RED CELL COUNT 2.37 10/6/uL (4.7-6.1); WHITE BLOOD CELLS 16.3 10/3/uL (4.5-10.5)
[2016-10-12 10:24] LABS: BUN (BLOOD UREA NITROGEN) 13 MG/DL (6-23); CALCIUM, SERUM 9.4 MG/DL (8.5-10.4); CHLORIDE, SERUM 105 MMOL/L (96-112); CO2 (CARBON DIOXIDE) 21 MMOL/L (24-34); CREATININE 1.15 MG/DL (0.70-1.30); GFR AFRICAN AMERICAN 80 ML/MIN (>=60); GFR NON AFRICAN AMERICAN 69 ML/MIN (>=60); POTASSIUM, SERUM 3.6 MMOL/L (3.5-5.3); SODIUM, SERUM 140 MMOL/L (135-148)
[2016-10-12 10:25] LABS: GLUCOSE, SERUM 194 MG/DL (60-99)
[2016-10-12 10:30] LABS: ANISOCYTOSIS 1+ (5-10/OIF) (0-5/OIF); BAND NEUTROPHILS 4 %; EOSINOPHILS 1 %; EOSINOPHILS ABSOLUTE (CALC) 0.16 10/3/uL (0.0-0.53); IMMATURE GRANS ABSOLUTE (CALC) 0.16 10/3/uL (0.0-0.11); LYMPHOCYTES 6 %; LYMPHOCYTES ABSOLUTE (CALC) 0.98 10/3/uL (0.67-4.30); METAMYELOCYTES 1 %; MONOCYTES 4 %; MONOCYTES ABSOLUTE (CALC) 0.65 10/3/uL (0.21-1.20); NEUTROPHILS ABSOLUTE (CALC) 14.34 10/3/uL (2.02-8.40); PLATELET ESTIMATE DEC (ADEQUATE); SEGMENTED NEUTROPHIL (0) 84 %; TOTAL NUCLEATED CELLS 100
[2016-10-12 10:31] LABS: TOXIC GRANULATION 1+
[2016-10-12 10:32] LABS: POLYCHROMASIA 1+ (2-5/OIF) (0-1/OIF)
[2016-10-12 15:04] LABS: ASCORBIC ACID (UR NOT ORDER) NEG (NEG); BILIRUBIN, URINE NEGATIVE (NEG); KETONE, URINE NEGATIVE (NEG); LEUKOCYTE ESTERASE(NOT OR TRACE (NEG); WBC (NOT ORDERED) (RFLEX) > 182 (0-5)
[2016-10-12 15:42] LABS: HEMOGLOBIN 7.7 g/dL (13.6-17.8); MEAN CORPUS HGB CONC 32.1 g/dL (32.0-36.0); MEAN CORPUSCULAR VOLUME 99.6 fL (80-100); MEAN PLATELET VOLUME 11.1 fL (9.2-13.0); RBC DISTRIBUTION WIDTH 17.3 % (12.0-16.0); RED CELL COUNT 2.41 10/6/uL (4.7-6.1); WHITE BLOOD CELLS 19.6 10/3/uL (4.5-10.5)
[2016-10-12 15:50] LABS: MANUAL DIFF YES %; PLATELET COUNT 128 10/3/uL (150-400)
[2016-10-12 15:54] LABS: BUN (BLOOD UREA NITROGEN) 15 MG/DL (6-23); CALCIUM, SERUM 9.7 MG/DL (8.5-10.4); CHLORIDE, SERUM 105 MMOL/L (96-112); CO2 (CARBON DIOXIDE) 23 MMOL/L (24-34); CREATININE 1.13 MG/DL (0.70-1.30); GFR AFRICAN AMERICAN 82 ML/MIN (>=60); GFR NON AFRICAN AMERICAN 71 ML/MIN (>=60); GLUCOSE, SERUM 173 MG/DL (60-99); PHOSPHORUS, SERUM 2.4 MG/DL (2.5-4.5); POTASSIUM, SERUM 3.9 MMOL/L (3.5-5.3); SODIUM, SERUM 141 MMOL/L (135-148)
[2016-10-12 16:32] LABS: BAND NEUTROPHILS 1 %; EOSINOPHILS 3 %; EOSINOPHILS ABSOLUTE (CALC) 0.59 10/3/uL (0.0-0.53); LYMPHOCYTES 4 %; LYMPHOCYTES ABSOLUTE (CALC) 0.78 10/3/uL (0.67-4.30); MONOCYTES 2 %; MONOCYTES ABSOLUTE (CALC) 0.39 10/3/uL (0.21-1.20); MYELOCYTES 1 %; NEUTROPHILS ABSOLUTE (CALC) 17.64 10/3/uL (2.02-8.40); PLATELET ESTIMATE SLT DEC (ADEQUATE); POIKILOCYTOSIS 1+ (5-10/OIF) (0-5/OIF); SEGMENTED NEUTROPHIL (0) 89 %; TOTAL NUCLEATED CELLS 100
[2016-10-12 16:33] LABS: ANISOCYTOSIS 1+ (5-10/OIF) (0-5/OIF); POLYCHROMASIA 1+ (2-5/OIF) (0-1/OIF); TOXIC GRANULATION 1+
[2016-10-12 22:17] LABS: HEMATOCRIT 23.6 % (40.0-51.0); HEMOGLOBIN 7.5 g/dL (13.6-17.8); MEAN CORPUS HGB CONC 31.8 g/dL (32.0-36.0); MEAN CORPUSCULAR HEMOGLOB 31.6 pg (26.0-34.0); MEAN CORPUSCULAR VOLUME 99.6 fL (80-100); MEAN PLATELET VOLUME 10.8 fL (9.2-13.0); PLATELET COUNT 124 10/3/uL (150-400); RBC DISTRIBUTION WIDTH 17.3 % (12.0-16.0); RED CELL COUNT 2.37 10/6/uL (4.7-6.1); WHITE BLOOD CELLS 18.8 10/3/uL (4.5-10.5)
[2016-10-12 22:22] LABS: MANUAL DIFF YES %
[2016-10-12 22:26] LABS: BUN (BLOOD UREA NITROGEN) 12 MG/DL (6-23); CALCIUM, SERUM 9.2 MG/DL (8.5-10.4); CHLORIDE, SERUM 108 MMOL/L (96-112); CO2 (CARBON DIOXIDE) 23 MMOL/L (24-34); GFR AFRICAN AMERICAN 85 ML/MIN (>=60); GFR NON AFRICAN AMERICAN 73 ML/MIN (>=60); GLUCOSE, SERUM 154 MG/DL (60-99); POTASSIUM, SERUM 3.8 MMOL/L (3.5-5.3); SODIUM, SERUM 143 MMOL/L (135-148)
[2016-10-12 23:22] LABS: IMMATURE GRANS ABSOLUTE (CALC) 0.38 10/3/uL (0.0-0.11); LYMPHOCYTES 7 %; LYMPHOCYTES ABSOLUTE (CALC) 1.32 10/3/uL (0.67-4.30); METAMYELOCYTES 1 %; MONOCYTES 1 %; MONOCYTES ABSOLUTE (CALC) 0.19 10/3/uL (0.21-1.20); MYELOCYTES 1 %; NEUTROPHILS ABSOLUTE (CALC) 16.92 10/3/uL (2.02-8.40); PLATELET ESTIMATE SLT DEC (ADEQUATE); RBC MORPHOLOGY ABN (NORMAL); SEGMENTED NEUTROPHIL (0) 90 %; TOTAL NUCLEATED CELLS 100
[2016-10-12 23:23] LABS: GIANT PLATELET FEW
[2016-10-13 03:58] LABS: BE (BASE EXCESS) -4.7 MEQ/L (0 +/- 2.5); CARBOXYHEMOGLOBIN 0.7 % (0-3); HCO3 (ACTUAL BICARBONATE) 19.7 MEQ/L (23-27); HEMOBLOGIN CONTENT 7.9 G/DL (14-18); INSTRUMENT SERIAL # 8083; MODE CMV; O2 CONTENT 11.2 VOL% (18-24); PCO2 (CO2 TENSION) 34 MMHG (35-45); PO2 (O2 TENSION) 131 MMHG (79-93); SAMPLE Arterial; TIDAL VOLUME 550 ML; pH 7.39 (7.37-7.43)
[2016-10-13 05:26] LABS: BASOPHILS 0.1 %; BASOPHILS ABSOLUTE 0.02 10/3/uL (0.0-0.16); EOSINOPHILS 1.2 %; EOSINOPHILS ABSOLUTE 0.21 10/3/uL (0.0-0.53); HEMATOCRIT 23.6 % (40.0-51.0); HEMOGLOBIN 7.5 g/dL (13.6-17.8); IMMATURE GRANULOCYTES 2.7 %; IMMATURE GRANULOCYTES ABSOLUTE 0.49 10/3/uL (0.0-0.11); LYMPHOCYTES 5.2 %; LYMPHOCYTES ABSOLUTE 0.94 10/3/uL (0.67-4.30); MEAN CORPUS HGB CONC 31.8 g/dL (32.0-36.0); MEAN CORPUSCULAR HEMOGLOB 31.8 pg (26.0-34.0); MEAN PLATELET VOLUME 10.9 fL (9.2-13.0); MONOCYTES 8.4 %; MONOCYTES ABSOLUTE 1.51 10/3/uL (0.21-1.20); NEUTROPHILS 82.4 %; NEUTROPHILS ABSOLUTE 14.75 10/3/uL (2.02-8.40); PLATELET COUNT 127 10/3/uL (150-400); RBC DISTRIBUTION WIDTH 17.5 % (12.0-16.0); RED CELL COUNT 2.36 10/6/uL (4.7-6.1); WHITE BLOOD CELLS 17.9 10/3/uL (4.5-10.5)
[2016-10-13 05:27] LABS: MANUAL DIFF NO %
[2016-10-13 05:47] LABS: BUN (BLOOD UREA NITROGEN) 11 MG/DL (6-23); CALCIUM, SERUM 8.8 MG/DL (8.5-10.4); CHLORIDE, SERUM 108 MMOL/L (96-112); CO2 (CARBON DIOXIDE) 22 MMOL/L (24-34); CREATININE 1.07 MG/DL (0.70-1.30); GFR AFRICAN AMERICAN 88 ML/MIN (>=60); GFR NON AFRICAN AMERICAN 76 ML/MIN (>=60); PHOSPHORUS, SERUM 2.2 MG/DL (2.5-4.5); POTASSIUM, SERUM 3.6 MMOL/L (3.5-5.3); SODIUM, SERUM 142 MMOL/L (135-148)
[2016-10-13 05:48] LABS: GLUCOSE, SERUM 79 MG/DL (60-99)
[2016-10-13 06:07] LABS: PROCALCITONIN 0.72 ng/mL (<0.5)
[2016-10-13 10:12] LABS: BASOPHILS 0.1 %; BASOPHILS ABSOLUTE 0.01 10/3/uL (0.0-0.16); EOSINOPHILS ABSOLUTE 0.18 10/3/uL (0.0-0.53); HEMATOCRIT 22.3 % (40.0-51.0); HEMOGLOBIN 7.1 g/dL (13.6-17.8); IMMATURE GRANULOCYTES 2.2 %; IMMATURE GRANULOCYTES ABSOLUTE 0.38 10/3/uL (0.0-0.11); LYMPHOCYTES 5.3 %; LYMPHOCYTES ABSOLUTE 0.92 10/3/uL (0.67-4.30); MEAN CORPUS HGB CONC 31.8 g/dL (32.0-36.0); MEAN CORPUSCULAR HEMOGLOB 31.8 pg (26.0-34.0); MONOCYTES 6.4 %; NEUTROPHILS ABSOLUTE 14.63 10/3/uL (2.02-8.40); PLATELET COUNT 131 10/3/uL (150-400); RBC DISTRIBUTION WIDTH 17.5 % (12.0-16.0); RED CELL COUNT 2.23 10/6/uL (4.7-6.1); WHITE BLOOD CELLS 17.2 10/3/uL (4.5-10.5)
[2016-10-13 10:13] LABS: MANUAL DIFF NO %
[2016-10-13 10:29] LABS: BUN (BLOOD UREA NITROGEN) 12 MG/DL (6-23); CALCIUM, SERUM 8.4 MG/DL (8.5-10.4); CHLORIDE, SERUM 107 MMOL/L (96-112); CO2 (CARBON DIOXIDE) 20 MMOL/L (24-34); CREATININE 0.97 MG/DL (0.70-1.30); GFR AFRICAN AMERICAN 99 ML/MIN (>=60); GFR NON AFRICAN AMERICAN 85 ML/MIN (>=60); GLUCOSE, SERUM 182 MG/DL (60-99); POTASSIUM, SERUM 3.7 MMOL/L (3.5-5.3); SODIUM, SERUM 142 MMOL/L (135-148)
[2016-10-13 15:44] LABS: BASOPHILS 0.1 %; BASOPHILS ABSOLUTE 0.02 10/3/uL (0.0-0.16); EOSINOPHILS 1.5 %; HEMATOCRIT 21.9 % (40.0-51.0); IMMATURE GRANULOCYTES 2.6 %; IMMATURE GRANULOCYTES ABSOLUTE 0.36 10/3/uL (0.0-0.11); LYMPHOCYTES 7.5 %; LYMPHOCYTES ABSOLUTE 1.02 10/3/uL (0.67-4.30); MEAN CORPUSCULAR HEMOGLOB 31.7 pg (26.0-34.0); MEAN CORPUSCULAR VOLUME 99.1 fL (80-100); MEAN PLATELET VOLUME 10.2 fL (9.2-13.0); MONOCYTES 8.6 %; MONOCYTES ABSOLUTE 1.17 10/3/uL (0.21-1.20); NEUTROPHILS 79.7 %; NEUTROPHILS ABSOLUTE 10.91 10/3/uL (2.02-8.40); PLATELET COUNT 134 10/3/uL (150-400); RBC DISTRIBUTION WIDTH 17.4 % (12.0-16.0); RED CELL COUNT 2.21 10/6/uL (4.7-6.1); WHITE BLOOD CELLS 13.7 10/3/uL (4.5-10.5)
[2016-10-13 15:48] LABS: MANUAL DIFF NO %
[2016-10-13 16:08] LABS: BUN (BLOOD UREA NITROGEN) 12 MG/DL (6-23); CALCIUM, SERUM 8.9 MG/DL (8.5-10.4); CHLORIDE, SERUM 106 MMOL/L (96-112); CO2 (CARBON DIOXIDE) 25 MMOL/L (24-34); CREATININE 1.05 MG/DL (0.70-1.30); GFR AFRICAN AMERICAN 90 ML/MIN (>=60); GFR NON AFRICAN AMERICAN 77 ML/MIN (>=60); GLUCOSE, SERUM 136 MG/DL (60-99); POTASSIUM, SERUM 3.6 MMOL/L (3.5-5.3); SODIUM, SERUM 141 MMOL/L (135-148)
[2016-10-14 06:03] LABS: HEMATOCRIT 22.6 % (40.0-51.0); HEMOGLOBIN 7.2 g/dL (13.6-17.8); MEAN CORPUS HGB CONC 31.9 g/dL (32.0-36.0); MEAN CORPUSCULAR HEMOGLOB 31.6 pg (26.0-34.0); MEAN CORPUSCULAR VOLUME 99.1 fL (80-100); MEAN PLATELET VOLUME 10.3 fL (9.2-13.0); RBC DISTRIBUTION WIDTH 17.5 % (12.0-16.0); RED CELL COUNT 2.28 10/6/uL (4.7-6.1); WHITE BLOOD CELLS 13.8 10/3/uL (4.5-10.5)
[2016-10-14 06:05] LABS: MANUAL DIFF YES %; PLATELET COUNT 192 10/3/uL (150-400)
[2016-10-14 06:16] LABS: CALCIUM, SERUM 8.4 MG/DL (8.5-10.4); CHLORIDE, SERUM 105 MMOL/L (96-112); CO2 (CARBON DIOXIDE) 24 MMOL/L (24-34); POTASSIUM, SERUM 3.1 MMOL/L (3.5-5.3); SODIUM, SERUM 144 MMOL/L (135-148)
[2016-10-14 06:17] LABS: BUN (BLOOD UREA NITROGEN) 23 MG/DL (6-23); CREATININE 2.18 MG/DL (0.70-1.30); GFR AFRICAN AMERICAN 37 ML/MIN (>=60); GFR NON AFRICAN AMERICAN 32 ML/MIN (>=60); GLUCOSE, SERUM 94 MG/DL (60-99); PHOSPHORUS, SERUM 4.9 MG/DL (2.5-4.5)
[2016-10-14 07:01] LABS: ANISOCYTOSIS 1+ (5-10/OIF) (0-5/OIF); BAND NEUTROPHILS 4 %; LYMPHOCYTES 14 %; LYMPHOCYTES ABSOLUTE (CALC) 1.93 10/3/uL (0.67-4.30); MONOCYTES 8 %; NEUTROPHILS ABSOLUTE (CALC) 10.76 10/3/uL (2.02-8.40); PLATELET ESTIMATE ADQ (ADEQUATE); SEGMENTED NEUTROPHIL (0) 74 %; TOTAL NUCLEATED CELLS 100
[2016-10-15 05:24] LABS: HEMATOCRIT 22.5 % (40.0-51.0); HEMOGLOBIN 7.1 g/dL (13.6-17.8); MEAN CORPUS HGB CONC 31.6 g/dL (32.0-36.0); MEAN CORPUSCULAR HEMOGLOB 31.7 pg (26.0-34.0); MEAN CORPUSCULAR VOLUME 100.4 fL (80-100); MEAN PLATELET VOLUME 9.9 fL (9.2-13.0); PLATELET COUNT 220 10/3/uL (150-400); RBC DISTRIBUTION WIDTH 17.2 % (12.0-16.0); RED CELL COUNT 2.24 10/6/uL (4.7-6.1)
[2016-10-15 05:25] LABS: MANUAL DIFF YES %
[2016-10-15 05:39] LABS: CHLORIDE, SERUM 108 MMOL/L (96-112); CO2 (CARBON DIOXIDE) 25 MMOL/L (24-34); CREATININE 2.63 MG/DL (0.70-1.30); GFR AFRICAN AMERICAN 30 ML/MIN (>=60); GFR NON AFRICAN AMERICAN 25 ML/MIN (>=60); POTASSIUM, SERUM 3.5 MMOL/L (3.5-5.3); SODIUM, SERUM 144 MMOL/L (135-148)
[2016-10-15 05:49] LABS: BUN (BLOOD UREA NITROGEN) 19 MG/DL (6-23); GLUCOSE, SERUM 191 MG/DL (60-99)
[2016-10-15 06:50] LABS: BAND NEUTROPHILS 1 %; BASOPHILS 1 %; BASOPHILS ABSOLUTE (CALC) 0.11 10/3/uL (0.0-0.16); IMMATURE GRANS ABSOLUTE (CALC) 0.11 10/3/uL (0.0-0.11); LYMPHOCYTES 12 %; LYMPHOCYTES ABSOLUTE (CALC) 1.32 10/3/uL (0.67-4.30); METAMYELOCYTES 1 %; MONOCYTES 1 %; MONOCYTES ABSOLUTE (CALC) 0.11 10/3/uL (0.21-1.20); NEUTROPHILS ABSOLUTE (CALC) 9.35 10/3/uL (2.02-8.40); SEGMENTED NEUTROPHIL (0) 84 %; TOTAL NUCLEATED CELLS 100
[2016-10-15 06:51] LABS: MACROCYTES 1+ (5-10/OIF) (0-5/OIF); PLATELET ESTIMATE ADQ (ADEQUATE)
[2016-10-16 06:42] LABS: BASOPHILS 0.2 %; BASOPHILS ABSOLUTE 0.02 10/3/uL (0.0-0.16); EOSINOPHILS 1.7 %; EOSINOPHILS ABSOLUTE 0.19 10/3/uL (0.0-0.53); HEMATOCRIT 21.6 % (40.0-51.0); IMMATURE GRANULOCYTES 1.4 %; IMMATURE GRANULOCYTES ABSOLUTE 0.15 10/3/uL (0.0-0.11); LYMPHOCYTES 15.7 %; LYMPHOCYTES ABSOLUTE 1.74 10/3/uL (0.67-4.30); MEAN CORPUS HGB CONC 31.9 g/dL (32.0-36.0); MEAN CORPUSCULAR HEMOGLOB 31.5 pg (26.0-34.0); MEAN CORPUSCULAR VOLUME 98.6 fL (80-100); MEAN PLATELET VOLUME 9.6 fL (9.2-13.0); MONOCYTES 9.3 %; MONOCYTES ABSOLUTE 1.03 10/3/uL (0.21-1.20); NEUTROPHILS 71.7 %; NEUTROPHILS ABSOLUTE 7.95 10/3/uL (2.02-8.40); RBC DISTRIBUTION WIDTH 16.9 % (12.0-16.0); RED CELL COUNT 2.19 10/6/uL (4.7-6.1); WHITE BLOOD CELLS 11.1 10/3/uL (4.5-10.5)
[2016-10-16 06:46] LABS: HEMOGLOBIN 6.9 g/dL (13.6-17.8); PLATELET COUNT 300 10/3/uL (150-400)
[2016-10-16 06:47] LABS: MANUAL DIFF NO %
[2016-10-16 07:18] LABS: ALBUMIN 2.2 G/DL (3.5-5.0); CALCIUM, SERUM 8.7 MG/DL (8.5-10.4); CHLORIDE, SERUM 107 MMOL/L (96-112); PHOSPHORUS, SERUM 4.6 MG/DL (2.5-4.5); POTASSIUM, SERUM 3.8 MMOL/L (3.5-5.3); SODIUM, SERUM 143 MMOL/L (135-148)
[2016-10-16 07:19] LABS: BUN (BLOOD UREA NITROGEN) 32 MG/DL (6-23); CO2 (CARBON DIOXIDE) 20 MMOL/L (24-34); CREATININE 4.25 MG/DL (0.70-1.30); FOLATE 7.2 NG/ML (>5.2); GFR AFRICAN AMERICAN 17 ML/MIN (>=60); GFR NON AFRICAN AMERICAN 14 ML/MIN (>=60); GLUCOSE, SERUM 127 MG/DL (60-99)
[2016-10-16 12:19] LABS: BASOPHILS 0.3 %; BASOPHILS ABSOLUTE 0.03 10/3/uL (0.0-0.16); EOSINOPHILS 1.7 %; EOSINOPHILS ABSOLUTE 0.19 10/3/uL (0.0-0.53); HEMOGLOBIN 6.4 g/dL (13.6-17.8); IMMATURE GRANULOCYTES 1.1 %; IMMATURE GRANULOCYTES ABSOLUTE 0.12 10/3/uL (0.0-0.11); LYMPHOCYTES 16.4 %; LYMPHOCYTES ABSOLUTE 1.84 10/3/uL (0.67-4.30); MEAN CORPUSCULAR HEMOGLOB 31.4 pg (26.0-34.0); MEAN PLATELET VOLUME 9.8 fL (9.2-13.0); MONOCYTES ABSOLUTE 1.35 10/3/uL (0.21-1.20); NEUTROPHILS 68.5 %; NEUTROPHILS ABSOLUTE 7.71 10/3/uL (2.02-8.40); PLATELET COUNT 280 10/3/uL (150-400); RBC DISTRIBUTION WIDTH 16.9 % (12.0-16.0); RED CELL COUNT 2.04 10/6/uL (4.7-6.1); WHITE BLOOD CELLS 11.2 10/3/uL (4.5-10.5)
[2016-10-16 12:20] LABS: MANUAL DIFF NO %
[2016-10-16 12:32] LABS: ALBUMIN 1.9 G/DL (3.5-5.0); BUN (BLOOD UREA NITROGEN) 31 MG/DL (6-23); CHLORIDE, SERUM 111 MMOL/L (96-112); CO2 (CARBON DIOXIDE) 23 MMOL/L (24-34); CREATININE 4.18 MG/DL (0.70-1.30); GFR AFRICAN AMERICAN 17 ML/MIN (>=60); GFR NON AFRICAN AMERICAN 15 ML/MIN (>=60); GLUCOSE, SERUM 137 MG/DL (60-99); PHOSPHORUS, SERUM 4.1 MG/DL (2.5-4.5); POTASSIUM, SERUM 3.5 MMOL/L (3.5-5.3); SODIUM, SERUM 145 MMOL/L (135-148)
[2016-10-16 17:22] LABS: HEMATOCRIT 28.8 % (40.0-51.0); HEMOGLOBIN 9.6 g/dL (13.6-17.8)
[2016-10-16 17:45] LABS: FERRITIN 915 NG/ML (26-388); IRON BINDING CAPACITY 149 MCG/DL (250-450); IRON, SERUM 35 MCG/DL (35-150)
[2016-10-16 18:26] LABS: FERRITIN 970 NG/ML (26-388); IRON BINDING CAPACITY 136 MCG/DL (250-450); IRON, SERUM 35 MCG/DL (35-150)
[2016-10-17 06:26] LABS: BASOPHILS 0.4 %; BASOPHILS ABSOLUTE 0.04 10/3/uL (0.0-0.16); EOSINOPHILS 2.3 %; EOSINOPHILS ABSOLUTE 0.25 10/3/uL (0.0-0.53); HEMOGLOBIN 9.7 g/dL (13.6-17.8); IMMATURE GRANULOCYTES 1.2 %; IMMATURE GRANULOCYTES ABSOLUTE 0.13 10/3/uL (0.0-0.11); LYMPHOCYTES 16.8 %; LYMPHOCYTES ABSOLUTE 1.82 10/3/uL (0.67-4.30); MEAN CORPUS HGB CONC 32.3 g/dL (32.0-36.0); MEAN CORPUSCULAR HEMOGLOB 31.1 pg (26.0-34.0); MEAN CORPUSCULAR VOLUME 96.2 fL (80-100); MEAN PLATELET VOLUME 9.5 fL (9.2-13.0); MONOCYTES 12.5 %; MONOCYTES ABSOLUTE 1.35 10/3/uL (0.21-1.20); NEUTROPHILS 66.8 %; NEUTROPHILS ABSOLUTE 7.22 10/3/uL (2.02-8.40); PLATELET COUNT 314 10/3/uL (150-400); RBC DISTRIBUTION WIDTH 17.5 % (12.0-16.0); WHITE BLOOD CELLS 10.8 10/3/uL (4.5-10.5)
[2016-10-17 06:27] LABS: MANUAL DIFF NO %; RED CELL COUNT 3.12 10/6/uL (4.7-6.1)
[2016-10-17 06:34] LABS: ALBUMIN 2.4 G/DL (3.5-5.0); BUN (BLOOD UREA NITROGEN) 24 MG/DL (6-23); CALCIUM, SERUM 8.9 MG/DL (8.5-10.4); CHLORIDE, SERUM 108 MMOL/L (96-112); CO2 (CARBON DIOXIDE) 24 MMOL/L (24-34); GFR AFRICAN AMERICAN 19 ML/MIN (>=60); GFR NON AFRICAN AMERICAN 16 ML/MIN (>=60); GLUCOSE, SERUM 83 MG/DL (60-99); POTASSIUM, SERUM 3.6 MMOL/L (3.5-5.3); SODIUM, SERUM 144 MMOL/L (135-148)
[2016-10-18 05:14] LABS: ALBUMIN 2.1 G/DL (3.5-5.0); CALCIUM, SERUM 8.5 MG/DL (8.5-10.4); CHLORIDE, SERUM 108 MMOL/L (96-112); CO2 (CARBON DIOXIDE) 22 MMOL/L (24-34); PHOSPHORUS, SERUM 4.8 MG/DL (2.5-4.5); POTASSIUM, SERUM 3.9 MMOL/L (3.5-5.3); SODIUM, SERUM 144 MMOL/L (135-148)
[2016-10-18 05:15] LABS: BUN (BLOOD UREA NITROGEN) 34 MG/DL (6-23); CREATININE 4.92 MG/DL (0.70-1.30); GFR AFRICAN AMERICAN 14 ML/MIN (>=60); GFR NON AFRICAN AMERICAN 12 ML/MIN (>=60); GLUCOSE, SERUM 162 MG/DL (60-99)
[2016-10-18 09:59] LABS: BASOPHILS 0.2 %; BASOPHILS ABSOLUTE 0.02 10/3/uL (0.0-0.16); EOSINOPHILS 2.9 %; EOSINOPHILS ABSOLUTE 0.31 10/3/uL (0.0-0.53); HEMOGLOBIN 8.8 g/dL (13.6-17.8); IMMATURE GRANULOCYTES 0.5 %; IMMATURE GRANULOCYTES ABSOLUTE 0.05 10/3/uL (0.0-0.11); LYMPHOCYTES 16.2 %; LYMPHOCYTES ABSOLUTE 1.71 10/3/uL (0.67-4.30); MEAN CORPUS HGB CONC 32.8 g/dL (32.0-36.0); MEAN CORPUSCULAR HEMOGLOB 31.4 pg (26.0-34.0); MEAN CORPUSCULAR VOLUME 95.7 fL (80-100); MEAN PLATELET VOLUME 9.6 fL (9.2-13.0); MONOCYTES 11.2 %; MONOCYTES ABSOLUTE 1.19 10/3/uL (0.21-1.20); PLATELET COUNT 291 10/3/uL (150-400); RBC DISTRIBUTION WIDTH 17.2 % (12.0-16.0); WHITE BLOOD CELLS 10.6 10/3/uL (4.5-10.5)
[2016-10-18 10:01] LABS: HEMATOCRIT 26.8 % (40.0-51.0); MANUAL DIFF NO %
[2016-10-18] MEDS ORDERED: ABILIFY5 PO (16:44)
[2016-10-18] MEDS ORDERED: DEPAKOT500 PO (16:46)
[2016-10-18] MEDS ORDERED: SYN1 PO (16:47)
[2016-10-18] MEDS ORDERED: KEPPRA500 PO (16:47)
[2016-10-18] MEDS ORDERED: ATV.5 PO (16:48)
[2016-10-18] MEDS ORDERED: PRILO PO (16:49)
[2016-10-18] MEDS ORDERED: OXYCOD PO (16:50)
[2016-10-18] MEDS ORDERED: NOVOLOG SC (16:51)
== END 2016-10-18 17:32 | disposition home health service (06) | DRG 870 ==
LOC: ER 04:04 → IMCU 10:02 → MIC 10-04 15:19 → 6NO 10-15 16:01
PROVIDERS: Hospitalist; Internal Medicine; Internal Medicine Critical Care Medicine; Internal Medicine Nephrology; Internal Medicine Pulmonary Disease; Nurse Practitioner Family
PROC: 5A09357 Assistance with Respiratory Ventilation, Less than 24 Consecutive Hours, Continuous Positive Airway Pressure (ICD-10-PCS; 2016-10-03)
PROC: 5A1955Z Respiratory Ventilation, Greater than 96 Consecutive Hours (ICD-10-PCS; principal; 2016-10-05)
PROC: 0BH17EZ Insertion of Endotracheal Airway into Trachea, Via Natural or Artificial Opening (ICD-10-PCS; 2016-10-05)
PROC: 02HV33Z Insertion of Infusion Device into Superior Vena Cava, Percutaneous Approach (ICD-10-PCS; 2016-10-05)
PROC: 4A02X4A Measurement of Cardiac Electrical Activity, Guidance, External Approach (ICD-10-PCS; 2016-10-05)
PROC: 5A1D60Z (ICD-10-PCS; 2016-10-06)
PROC: 30233N1 Transfusion of Nonautologous Red Blood Cells into Peripheral Vein, Percutaneous Approach (ICD-10-PCS; 2016-10-16)
DX: A41.51 Sepsis due to Escherichia coli [E. coli] (principal); J96.01 Acute respiratory failure with hypoxia; G92 Toxic encephalopathy; R65.21 Severe sepsis with septic shock; I13.2 Hypertensive heart and chronic kidney disease with heart failure and with stage 5 chronic kidney disease, or end stage renal disease; N18.6 End stage renal disease; D69.59 Other secondary thrombocytopenia; I42.9 Cardiomyopathy, unspecified; I50.20 Unspecified systolic (congestive) heart failure; I50.22 Chronic systolic (congestive) heart failure; D62 Acute posthemorrhagic anemia; B37.49 Other urogenital candidiasis; E11.22 Type 2 diabetes mellitus with diabetic chronic kidney disease; M79.7 Fibromyalgia; E03.9 Hypothyroidism, unspecified; N20.0 Calculus of kidney; G89.4 Chronic pain syndrome; G40.901 Epilepsy, unspecified, not intractable, with status epilepticus; F41.9 Anxiety disorder, unspecified; B96.20 Unspecified Escherichia coli [E. coli] as the cause of diseases classified elsewhere; F39 Unspecified mood [affective] disorder; D63.8 Anemia in other chronic diseases classified elsewhere; F32.9 Major depressive disorder, single episode, unspecified; E11.319 Type 2 diabetes mellitus with unspecified diabetic retinopathy without macular edema; E11.21 Type 2 diabetes mellitus with diabetic nephropathy; E11.40 Type 2 diabetes mellitus with diabetic neuropathy, unspecified; Z16.12 Extended spectrum beta lactamase (ESBL) resistance; Z99.2 Dependence on renal dialysis; Z79.899 Other long term (current) drug therapy; Z88.8 Allergy status to other drugs, medicaments and biological substances; Z79.84 Long term (current) use of oral hypoglycemic drugs; Z82.49 Family history of ischemic heart disease and other diseases of the circulatory system; Z87.442 Personal history of urinary calculi; R41.0 Disorientation, unspecified; K59.00 Constipation, unspecified
CPT/HCPCS: 31720; 36415; 36569; 36600; 70450; 71010; 74000; 74176; 80048; 80053; 80061; 80069; 80074; 80076; 80164; 80177; 80202; 80305; 80307; 81001; 82140; 82272; 82330; 82533; 82550; 82607; 82728; 82746; 82805; 82962; 83036; 83540; 83550; 83605; 83615; 83735; 83880; 83970; 84100; 84145; 84155; 84165; 84439; 84443; 84481; 84484; 85014; 85018; 85025; 85610; 85730; 86022; 86334; 86850; 86900; 86901; 86920; 87040; 87070; 87077; 87086; 87186; 87205; 87493; 87493-59; 87641; 87804; 92610-GN; 93005; 93308; 93321; 93325; 94002; 94003; 94640; 94660; 95813; 95816; 96365; 96366; 96367; 96368; 96375; 96376; 96523; 97161-GP; 99291; A9270-GY; C1751; C8924; C9113; G0257; G0463; G8978-CK-GP; G8979-CI-GP; G8996-CI-GN; G8997-CI-GN; G8998-CI-GN; J0360; J0610; J0692; J0885; J1630; J1953; J2185; J2310; J2543; J2997; J3010; J3370; J3411; P9016; P9047; Q9957

== ENCOUNTER 2016-11-04 21:43 | Inpatient (IN) | payer MEDICARE, OTHER ==
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
--- NOTE | ~2016-11-04 | CN ---
Consultation Report [facility] [address] [facility] [place]. [address] NAME: KEMAL MARTINEZ : 59 STATUS : ADM IN [facility]#: [id number] AGE: 61 ADM/REG DATE : 11/04/16 MR#: [id number] REPORT SERV DATE: 11/05/16 DICTATED BY: JUANITA FELDMAN DATE: 11/05/16 REPORT STATUS : Draft TRANSCRIBED BY: MODL DATE: 11/05/16 NEUROLOGICAL CONSULTATION CVICU DATE OF CONSULTATION: 11/05/2016 REQUESTING PHYSICIAN: Christy Amor MD HISTORY OF PRESENT ILLNESS: This is a 61-year-old male with known history of end-stage renal disease, on hemodialysis and recent (09/2016) hospitalization for severe encephalopathy associated with nonconvulsive-generalized seizures and status epilepticus (the status epilepticus was generalized, not partial complex as stated in the patient's history and physical of this hospitalization). The patient at the time of last hospitalization was found to have a severely abnormal EEG, was unresponsive and extremely encephalopathic. His condition gradually reversed with multiple anticonvulsants and continuous hemodialysis. The patient was discharged from the hospital on two anticonvulsants, Depakote 1500 mg p.o. b.i.d. and Keppra 1250 mg p.o. b.i.d. The patient was admitted to the hospital on 11/04/2016 confused. The patient was transferred from [facility], limited records were available upon his admission. He was noted to be in hypoxemic respiratory failure and with altered mental status. The patient was intubated and admitted to the intensive care unit. His Depakote level on admission was extremely subtherapeutic. PAST MEDICAL HISTORY: 1. The patient has a history of diabetes mellitus type 2, which was poorly controlled with complications of neuropathy, retinopathy, and nephropathy. 2. Diastolic congestive heart failure. 3. Chronic constipation. 4. Essential hypertension. 5. Hyperlipidemia. 6. Hypothyroidism. 7. 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 8. History of previous pericardial tamponade, status post pericardial window. 9. Recent last month hospitalization for prolonged status epilepticus which was discovered initially during that hospitalization and uremic encephalopathy. 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 SOCIAL HISTORY: He is retired from the [employer]. There is a questionable history of tobacco abuse. There is no history of alcohol use or drug use. FAMILY HISTORY: Significant for history of renal disease in the patient's father, congestive Consultation Report [facility] [address] [place]. [address] NAME: KEMAL MARTINEZ : 59 STATUS : ADM IN PAT#: [id number] AGE: 61 ADM/REG DATE : 11/04/16 MR#: [id number] REPORT SERV DATE: 11/05/16 DICTATED BY: JUANITA FELDMAN DATE: 11/05/16 REPORT STATUS : Draft TRANSCRIBED BY: HUGO DATE: 11/05/16 heart failure in parents, and history of diabetes mellitus. MEDICATIONS: Prior to admission included Depakote 1500 mg twice a day, which obviously the patient was not taking with his admission level yesterday of 0; Keppra 1250 mg p.o. b.i.d.; Synthroid 0.1 mg p.o. daily; Ativan 0.5 mg twice a day; Abilify 5 mg twice a day; Toujeo insulin 20 units daily with sliding scale NovoLog; oxycodone 10 mg p.o. unknown frequency p.r.n. for pain. REVIEW OF SYSTEMS: Could not be obtained. The patient was intubated and sedated. PHYSICAL EXAMINATION: VITAL SIGNS: Blood pressure 148/72, pulse was 70, and respirations 14. HEAD AND NECK: Showed him to be normocephalic. There was no evidence of trauma. Auscultation of the neck showed no evidence of bruits. No JVD or thyromegaly detected. CHEST: Symmetrical. LUNGS: Appeared clear. HEART: Auscultation of the heart, regular S1, S2. No S3, S4, gallops were noted. ABDOMEN: Soft, nontender. No organomegaly. Bowel sounds hypoactive. EXTREMITIES: Showed status post amputation of the left big toe, several areas of redness and scabs noted on the right toes. Peripheral pulses decreased but present throughout. SKIN: Clear. No ecchymosis, petechiae, or hemorrhages noted. NEUROLOGIC: Off sedation, the patient was following commands. Moving all four extremities. No asymmetry of strength and mobility detected. Cranial nerve examination: Eyes were midline. The patient was able to direct his gaze to the left and right crossing midline without any difficulty. Upward and downward gaze was difficult to test. Pupils were 2-3 mm equal and reactive to light and accommodation. Funduscopic exam showed no evidence of papilledema, hemorrhages, or exudates. Facial sensation showed no evidence of asymmetry. The patient was orally intubated. Deep tender reflexes were trace in upper extremities, absent in lower extremities. Sensory exam: Difficult to test at this time. The patient appeared to respond appropriately, however, appears to have significant peripheral neuropathy distally in the lower extremities. Cerebellar exam could not be tested appropriately, and gait could not be tested. LABORATORY TESTS AND STUDIES: WBC count 6.1, hemoglobin 8.4, hematocrit 26.4, and platelet count 106,000 . PT/INR 1.2. BUN 53, creatinine 5.43, glomerular filtration rate 11, potassium 3.9, sodium 140. Bilirubin 0.3, AST 11, ALT less than 6, alkaline phosphatase 174, albumin 2.10. Glucose 88. Magnesium 2.3. Phosphorus 4.2. CT scan as per Dr. Amor's report from outside facility, the report stated showing no acute findings. However, no study was obtained at this hospital. EEG which was done at the patient's bedside this morning showed no evidence of status epilepticus or acute seizure discharges. However, EEG was diffusely slightly slow suggestive of possible postictal state. No significant asymmetry of cerebral activity was Consultation Report [address] [address] NAME: KEMAL MARTINEZ : 59 STATUS : ADM IN [facility]#: [id number] AGE: 61 ADM/REG DATE : 11/04/16 MR#: [id number] REPORT SERV DATE: 11/05/16 DICTATED BY: JUANITA FELDMAN DATE: 11/05/16 REPORT STATUS : Draft TRANSCRIBED BY: MODL DATE: 11/05/16 noted. IMPRESSION: 1. Altered mental status and encephalopathy, most likely secondary to breakthrough seizure. The seizure observed during the patient's hospitalization is not partial complex as stated. The designation of the seizure classification has changed, and his seizures could be described as generalized with no evidence of tonic-clonic activity suggestive of nonconvulsive status if the patient does go into status epilepticus. This constitutes a clinical precarious situation and potentially dangerous situation if unrecognized. During previous hospitalization, the patient was noted to be in continuous status epilepticus with no tonic-clonic activity. His status epilepticus eventually responded to multiple anticonvulsants in combination with continuous hemodialysis, which eventually brought his BUN and creatinine close to the normal ranges. The patient's discharge medications included Depakote 1500 mg p.o. b.i.d. and Keppra 1250 mg p.o. b.i.d. His Depakote level on admission was 0. It is not clear whether the patient has stopped taking his Depakote secondary to noncompliance, whether he was instructed by a medical provider to stop the Depakote and was still continued on his Keppra. It is clear that the patient needs to be on two anticonvulsants at the above-mentioned doses. He needs regular neurological followup once discharged from the hospital. 2. The patient is probably now in postictal state, but improving and following commands of sedation. 3. End-stage renal disease, questionable compliance with dialysis. BUN 53 and creatinine 5.6 on admission. 4. Diabetes mellitus with multiple complications including neurological complications of retinopathy and peripheral neuropathy. 5. Status post amputation of the left toe osteomyelitis with methicillin-resistant staphylococcus aureus history. 6. History of window placement for cardiac tamponade. Current echocardiogram shows ejection fraction of 45 with possible diastolic dysfunction. 7. Probable obstructive sleep apnea, which needs to be investigated and monitored on the patient basis. Recommend to continue IV medication until the patient is able to be switched to p.o. medications Depakote 1500 mg p.o. b.i.d., and Keppra 1250 mg p.o. b.i.d. Extubate when able as per Dr. Garcia of Pulmonology and if no aspiration pneumonia present. We will re-evaluate the patient once the patient is extubated. Obtain Depakote levels in the morning. If needed obtain Keppra levels to monitor the patient's compliance and/or therapeutic range. MRI of the brain without and with contrast if needed. The patient has an increased risk of a stroke and recurrent strokes with his underlying above-mentioned conditions. His seizure precautions should include upon discharge, no driving, no operating heavy moving machinery, no climbing heights or ladders, no swimming, no taking bath when home alone, no operating firearms. These precaution should be given to the patient prior to his discharge and also his family should be instructed to follow up with Outpatient Neurology, Pulmonology, and the patient's other physicians. Outpatient polysomnography study for obstructive sleep apnea diagnosis is highly recommended and required. Consultation Report [facility] [id number] [place]. [address] NAME: KEMAL MARTINEZ : 59 STATUS : ADM IN PAT#: [id number] AGE: 61 ADM/REG DATE : 11/04/16 MR#: [id number] REPORT SERV DATE: 11/05/16 DICTATED BY: JUANITA FELDMAN DATE: 11/05/16 REPORT STATUS : Draft TRANSCRIBED BY: HUGO DATE: 11/05/16 Thank you for allowing us to participate in this patient's care. RENITA/HUGO Juanita Feldman MD / [id number] CC: Jenise Villavicencio SHERRI LEE
--- NOTE | ~2016-11-04 | HP ---
History And Physical [facility] [address] [place]. [address] NAME: KEMAL JAQUEZ : 59 STATUS : ADM IN [facility]#: [id number] AGE: 61 ADM/REG DATE : 11/04/16 MR#: [id number] REPORT SERV DATE: 11/05/16 DICTATED BY: BLAYNE MARTINO DATE: 11/05/16 REPORT STATUS : Draft TRANSCRIBED BY: MODL DATE: 11/05/16 DATE OF ADMISSION: 11/04/2016 PULMONARY CRITICAL CARE ADMITTING HISTORY AND PHYSICAL REASON FOR ADMISSION: Encephalopathy, obtundation, and acute hypoxemic respiratory failure. HISTORY OF PRESENT ILLNESS: Mr. Jaquez is a 61-year-old gentleman with an extensive past medical history including end-stage renal disease, previously on peritoneal dialysis now on hemodialysis (since July) in [place]. 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 He has additional medical history of type 2 diabetes mellitus, hypertension, hypothyroidism on chronic replacement therapy and partial complex seizures for which he was actually admitted to our facility beginning on 10/03/2016 through 10/19/2016. He also had sepsis secondary to ESBL E. coli, pneumonia leading to acute hypoxemic respiratory failure requiring mechanical ventilation during that admission. He was at dialysis this afternoon and was found to be quite encephalopathic, and he was ultimately moved to [facility] for further assessment. He was started on BiPAP for hypoxemic respiratory failure, and altered mental status workup was completed. They also alannah a Depakote level which was markedly subtherapeutic, and he was transferred to our facility for higher level of care particularly with regard to neurologic evaluation in light of suspected partial complex seizures. On his arrival here, he was obtunded on BiPAP and desaturated quickly with removal of the mask. Decision was made to intubate him. Please see the separate progress note dictated this evening for details of that event. PAST MEDICAL HISTORY: Recent encephalopathy likely secondary to partial complex seizure disorder on outpatient Keppra and Depakote (with subtherapeutic level tonight), recent sepsis with ESBL E. coli. Tracheal culture presumed to be HCAP as he was on mechanical ventilation during his last hospitalization, end-stage renal disease on chronic hemodialysis since July. He was previously on peritoneal dialysis. Of note, he is currently being evaluated for renal transplant at [facility] in [place]. Additional medical history includes chronic pain disorder requiring chronic narcotics, unspecified mood disorder, type 2 diabetes mellitus which is poorly controlled with complications of retinopathy, neuropathy, and nephropathy, acute blood loss anemia, diastolic CHF, chronic constipation on Linzess, essential hypertension, hyperlipoproteinemia, hypothyroidism on Synthroid, and previous MRSA, osteomyelitis of the left great toe leading to amputation, history of previous pericardial tamponade status post pericardial window in the past. SURGICAL HISTORY: Additional surgical history includes pericardial window as above, left great toe amputation secondary to MRSA osteomyelitis, bilateral cataract excision, bilateral Dupuytren contracture release, tonsillectomy, and previous left heart cath performed at [facility] in [place] which was reported as normal at that time. SOCIAL HISTORY: Largely unknown. The patient is a retired ([employer]). He previously worked in [employer]. He is and has four children as well History And Physical [address] [address] NAME: KEMAL JAQUEZ : 59 STATUS : ADM IN [facility]#: [id number] AGE: 61 ADM/REG DATE : 11/04/16 MR#: [id number] REPORT SERV DATE: 11/05/16 DICTATED BY: BLAYNE MARTINO DATE: 11/05/16 REPORT STATUS : Draft TRANSCRIBED BY: HUGO DATE: 11/05/16 as several grand children. No previous tobacco use. He remotely drinks socially but has not consumed alcohol in many years. No illicit drug use history. FAMILY HISTORY: Pertinent for congestive heart failure in both parents. Mother of an intracranial hemorrhage. Father of end-stage renal disease, secondary to uncontrolled diabetes. He has two additional sisters who are in good health. ALLERGIES: HIS ALLERGIES INCLUDE COREG AND LYRICA WITH UNKNOWN REACTIONS. HOME MEDICATIONS: Include Abilify 5 mg twice daily, Depakote 1500 mg twice daily, Keppra 1250 mg every 8 hours, Synthroid 1000 mcg daily, Ativan 0.5 mg twice daily, prochlorperazine 3 times daily as needed for nausea, Toujeo insulin 20 units daily with a sliding scale of NovoLog additionally for correction, Renvela one tablet 3 times daily, calcium acetate 1 tablet 3 times daily, Linzess 1 capsule daily, omeprazole 20 mg daily, oxycodone 10 mg up to every four hours as needed for pain. REVIEW OF SYSTEMS: Review of systems was completed and was negative except for those points described above in the history of present illness section of the dictation. Advanced directives, living sanches none known. PHYSICAL EXAMINATION: VITAL SIGNS: Heart rate is 52, on low dose of Precedex, he is breathing 12 synchronous with the ventilator following intubation, blood pressure is 152/74, he is afebrile with an oxygen saturation 100% on 50% FiO2. Pain scale is unable to be assessed as he is obtunded. HEENT: Head is atraumatic and normocephalic. Pupils are equal, round, and reactive to light approximately 2 mm bilaterally, unable to assess extraocular movements following intubation, however, they were difficult to assess prior to extubation as well. EARS, NOSE, AND MOUTH: Unremarkable. He has slightly dry oral mucosa secondary to prolonged BiPAP use and he has fair oral dentition, with endotracheal tube and orogastric tube in place projecting from the mouth. NECK: Neck is supple. CHEST: He has a tunneled PermCath in the right upper chest without evidence of erythema. LUNGS: With coarse breath sounds bilaterally with some crackles at the bases. HEART: S1, S2. Brisk cap refill distal extremities without the assistance of vasopressors. ABDOMEN: Obese, soft, nontender, nondistended with positive bowel sounds in all four quadrants. No appreciable peritoneal signs. : Unremarkable exam. LYMPHATIC EXAM: Unremarkable. EXTREMITIES: Demonstrate a left great toe amputation but otherwise unremarkable. He has trace pitting edema pretibially. SKIN: Warm and dry. NEUROLOGIC: Exam is very limited. He is unresponsive to verbal stimulus. He will withdraw all four extremities to pain but does not follow commands or open his eyes. He has sonorous gurgling respirations on exam pre-intubation with no focal deficits detected. PSYCHIATRIC EXAM: Unable to assess. History And Physical [address] [place]. [address] NAME: KEMAL JAQUEZ : 59 STATUS : ADM IN [facility]#: [id number] AGE: 61 ADM/REG DATE : 11/04/16 MR#: [id number] REPORT SERV DATE: 11/05/16 DICTATED BY: BLAYNE MARTINO DATE: 11/05/16 REPORT STATUS : Draft TRANSCRIBED BY: HUGO DATE: 11/05/16 DIAGNOSTIC STUDIES: Personal review of diagnostic workup completed this evening is limited although we are obtaining the records from [place]. He was transferred with a few labs and disc of images which were significant for a Depakote level which was undetectable, and no acute indication for dialysis in reviewing his chemistry panel. He has normochromic normocytic anemia which is chronic when compared to the records in [facility]. A brain CT and a chest x-ray performed at the outside facility. Brain CT showed right maxillary sinusitis on my personal review of the images this evening which were pulled out from the disc, and he has bilateral hazy opacities in the lower lobes of the lungs and intact hemodialysis catheter in the right upper chest on review of chest x- ray. An EKG is pending at the time of this dictation. [employer] records from our facility were also reviewed personally by me ribeiro. IMPRESSION: 1. Acute hypoxemic respiratory failure, now requiring mechanical intubation. 2. Acute encephalopathy of unclear etiology although I suspect maybe related to partial complex seizures in the setting of an undetectable Depakote level drawn at the outside hospital. 3. End-stage renal disease on hemodialysis without acute indication for dialysis tonight. 4. Anemia of chronic disease. 5. History of recent sepsis with suspected ESBL E. coli pneumonia requiring intubation mechanical ventilation last month. 6. Poorly controlled diabetes mellitus (type 2) with complications of retinopathy, neuropathy, and nephropathy. 7. Chronic pain syndrome. 8. Diastolic congestive heart failure. 9. Chronic constipation. 10.History of hypertension, hyperlipoproteinemia, hypothyroidism, and additional past medical history as above. PLAN: Mr. Jaquez has already been intubated and started on mechanical ventilation which he is tolerating well with an oxygen saturation of 100%. We will keep him lightly sedated to a rest of 0 to -1 this evening and hold all sedation at 7 a.m. for neurology assessment. He had an unremarkable brain imaging at the outside hospital which we will not repeat. We will cover him with broad-spectrum antibiotics in the setting of recent sepsis, and we will use vancomycin and Zosyn in the setting of recent ESBL E. coli pneumonia. We will send procalcitonin, BNP, and full cultures with the goal of rapid de-escalation of antibiotics when more data is available. We will go ahead and load him with Depakote and Keppra this evening, and he will also be on a propofol drip. Of note, he did receive some Ativan at the outside hospital which worsened his obtundation. We will ask Neurology to assess tomorrow morning and also involve Nephrology for management of his dialysis. We will cover him with subcutaneous heparin for DVT chemoprophylaxis and proton pump inhibitor for stress ulcer prophylaxis while on the ventilator. Obtain additional records and start him on tube feeds as we expect that he might be on the ventilator for a few days. His family is not available History And Physical [address] [address] NAME: KEMAL JAQUEZ : 59 STATUS : ADM IN [facility]#: [id number] AGE: 61 ADM/REG DATE : 11/04/16 MR#: [id number] REPORT SERV DATE: 11/05/16 DICTATED BY: BLAYNE MARTINO DATE: 11/05/16 REPORT STATUS : Draft TRANSCRIBED BY: HUGO DATE: 11/05/16 this evening but they have been updated by phone. We will continue to titrate sedation as needed this evening and reassess tomorrow morning. He is a full code. Approximately 73 minutes of critical care time were spent, assessing and stabilizing Mr. Jaquez (excluding intubation time) including titration of medications and frequent ventilator adjustments. Please see my handwritten progress note for additional details. ASHANTI/HUGO Blayne Martino MD / [id number] CC: Jenise Villavicencio
--- NOTE | ~2016-11-04 | EEG ---
Electroencephalogram [facility] [address] [place]. [address] NAME: KEMAL MARTINEZ : 59 STATUS : ADM IN PAT#: [id number] AGE: 61 ADM/REG DATE : 11/04/16 MR#: [id number] REPORT SERV DATE: 11/09/16 DICTATED BY: JUANITA FELDMAN DATE: 11/09/16 REPORT STATUS : Draft TRANSCRIBED BY: MODL DATE: 11/09/16 ELECTROENCEPHALOGRAPHY REPORT. REQUESTING PHYSICIAN: Dr. Bonita Proctor. INTERPRETING PHYSICIAN: Juanita Feldman M.D. LOCATION OF THE PATIENT: CVICU bed 15. DATE OF EE11/05/2016. Altered mental status. Possible seizure preceding the unresponsiveness. End-stage renal disease, on hemodialysis. 23 surface electrodes, 10-20 international placement was used. The patient was noted to be awake, drowsy, and asleep throughout the study. The background activity consisted of moderate voltage poorly organized 8 cycles per second located in the posterior head regions and this activity attenuated with the eye opening maneuvers when the patient became more alert. During drowsiness and light sleep, no paroxysmal epileptiform activity was noted. Photic stimulation did not bring out additional abnormality and no driving response posteriorly was observed. The patient's weight loss consultant showed sinus bradycardia, heart rate of approximately 56 beats per minute. IMPRESSION: MILDLY ABNORMAL EEG CHARACTERIZED BY PRESENCE OF DIFFUSE SLOWING OF CEREBRAL ACTIVITY. NO PAROXYSMAL OR EPILEPTIFORM ACTIVITY WAS SEEN DURING THIS STUDY. THIS EEG MAY REPRESENT A POSTICTAL STATE. CLINICAL CORRELATION IS RECOMMENDED. RENITA/HUGO Juanita Feldman MD / [id number] CC: Jenise Franco
--- NOTE | ~2016-11-04 | DS ---
Discharge Summary [facility] [address] [place]. [address] NAME: KEMAL MARTINEZ : 59 STATUS : ADM IN [facility]#: [id number] AGE: 61 ADM/REG DATE : 11/04/16 MR#: [id number] REPORT SERV DATE: 11/10/16 DICTATED BY: THUY BABIN DATE: 11/10/16 REPORT STATUS : Draft TRANSCRIBED BY: MODL DATE: 11/10/16 ADMISSION DATE: 11/04/2016 DISCHARGE DATE: 11/10/2016 FINAL HOSPITAL DIAGNOSES: 1. Encephalopathy with hypoxic respiratory failure. 2. Seizure disorder. 3. Chronic kidney disease, on dialysis. 4. Anxiety. 5. Hypothyroidism. 6. Diabetes mellitus. 7. Chronic pain management. CONSULTATIONS: 1. Dr. Amor, Pulmonary Critical Care. 2. Dr. Feldman, Neurology. 3. Dr. Kelly, Nephrology. 4. Dr. Hernandez, Psychiatry. PROCEDURES: 1. EEG done on the showing bilateral synchronous paroxysmal left deformed discharges seen continuously compatible with continuous status epilepticus, underlying slowing and disorganization of cerebral activity with intermittent biphasic and triphasic waveforms suggest presence of metabolic encephalopathy. 2. Repeat EEG on the showing mildly abnormal EEG characterized by diffuse slowing of cerebral activity, no paroxysmal epileptiform activity was seen during this study. This EEG may represent a postictal state. 3. MRI of the brain on the showing mild chronic small vessel ischemic changes with no acute finding demonstrated on MRI of the brain without contrast. CURRENT PHYSICAL FINDINGS AND HPI: Please see initial dictated H and P by Dr. Amor. In brief, the patient is a 61-year-old male with above medical history, was admitted to the ICU with respiratory failure and encephalopathy. Vital signs at time of admission, BP was 160/89, temperature was 98.1. He has been afebrile during his hospital stay. LAB WORK: Initial blood gas showed a pH of 7.40. Initial BMP noted his creatinine to be 5.45, no significant hyperkalemia. BNP was 374. Ammonia was 13, lactate was 1.1. White count was 6.1, there has been significant leukocytosis here. Hemoglobin has been low stable in the low to mid 9 hemoglobin range. Blood cultures done on the are negative at four days. HOSPITAL COURSE: The patient was initially admitted to the ICU. Given his encephalopathy and respiratory distress, Neurology and Nephrology were consulted. Drug levels were drawn. DVT prophylaxis was administered and patient was intubated. He was also at that time placed on antibiotics, vancomycin. Neurology saw him and started IV seizure medications. Tube feeds were also started and palliative care consult was requested. Nephrology also saw him Discharge Summary [facility] [address] [place]. [address] NAME: KEMAL MARTINEZ : 59 STATUS : ADM IN PAT#: [id number] AGE: 61 ADM/REG DATE : 11/04/16 MR#: [id number] REPORT SERV DATE: 11/10/16 DICTATED BY: THUY BABIN DATE: 11/10/16 REPORT STATUS : Draft TRANSCRIBED BY: HUGO DATE: 11/10/16 and instituted dialysis. He was also placed on Merrem at that time. Serial electrolytes were followed. On the , his Merrem was changed to Zosyn. Pharmacy followed his vancomycin. Neurology continued to follow and adjust his seizure medications appropriately. On the , the Zosyn was discontinued. He was also seen by Psychiatry and started on Seroquel. Dialysis continued, he was transferred to the floor on the . I picked up his care on the , the patient was doing fine at that time, although he was somewhat agitated. Psychiatry had recommended continuation of Seroquel. Palliative Care had also seen him. On the , the patient was requesting discharge. Psychiatry had signed off. Neurology had signed off. 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 Pulmonary Critical Care had already signed off. MEDICATIONS: Neurology wrote a titrating dose of Depakote and Vimpat for him to transition him over to Vimpat. Prescription for Seroquel one in the a.m., two in the p.m. was written. He will continue his Depakote 1500 b.i.d., Colace 100 b.i.d. He will go back to his previous sliding scale and Toujeo at 20 units daily. Synthroid 100 one per day, Prilosec 20, Compazine 5 t.i.d., Abilify 5 b.i.d., PhosLo 667 t.i.d., Linzess before breakfast, Ativan 0.5 b.i.d., and hydrocodone 10 q.6 hours p.r.n. AGGIEF/JIMMYL Thuy Babin M.D. / [id number] CC: Jenise Fracno SHERRI LEE
--- NOTE | ~2016-11-04 | OP ---
Record Of [facility] [address] [place]. [address] NAME: KEMAL JAQUEZ : 59 STATUS : ADM IN [facility]#: [id number] AGE: 61 ADM/REG DATE : 11/04/16 MR#: [id number] REPORT SERV DATE: 11/05/16 DICTATED BY: BLAYNE MARTINO DATE: 11/05/16 REPORT STATUS : Draft TRANSCRIBED BY: MODYvette DATE: 11/05/16 DATE OF PROCEDURE: 11/04/2016 PULMONARY CRITICAL CARE INTUBATION NOTE REASON FOR INTUBATION: Obtundation and acute hypoxemic respiratory failure. PREMEDICATION: Etomidate 20 mg x1 and rocuronium 50 mg x1 followed by propofol 5 mL after endotracheal tube was inserted. CONSENT: Implied. No family were available. PROCEDURE IN DETAILS: Mr. Jaquez is a new admission to our facility this evening who was transferred down from [place] for encephalopathy and acute hypoxemic respiratory failure. On arrival, he was found to be completely obtunded and unresponsive and on BiPAP with which he was transferred from the outside hospital settings 22/12. On brief removal of his BiPAP mask, he immediately desaturated to the low 70s on the oximetry probe, and decision was made to intubate him for both advanced invasive respiratory support and airway protection due to his obtundation. He was premedicated with 20 of etomidate and 50 of rocuronium, and #8 endotracheal tube was inserted through the vocal cords under direct visualization using a #4 GlideScope. On first attempt, there was positive color change on the end-tidal CO2 detector. Positive condensation in the endotracheal tube lumen with bagging and bilateral breath sounds with absent breath sounds over the fundus of the stomach with bagging, and OG tube was subsequently inserted, and a followup chest x-ray was pending at the time of this dictation. Please see handwritten progress note and additional dictation for further details of this evening's events. ASHANTI/HUGO Blayne Martino MD / [id number] CC: Jenise Villavicencio
--- NOTE | ~2016-11-04 | CN ---
Consultation Report [facility] [address] [place]. [address] NAME: KEMAL MARTINEZ : 59 STATUS : ADM IN [facility]#: [id number] AGE: 61 ADM/REG DATE : 11/04/16 MR#: [id number] REPORT SERV DATE: 11/05/16 DICTATED BY: REJI KELLY DATE: 11/05/16 REPORT STATUS : Draft TRANSCRIBED BY: MODL DATE: 11/05/16 NEPHROLOGY CONSULT DATE OF CONSULTATION: 11/05/2016 CHIEF COMPLAINT: ESRD. HISTORY OF PRESENT ILLNESS: The patient is a 61-year-old, obese, white male with significant past medical history of ESRD, hypertension, diabetes, and recent hospitalization for sepsis and status epilepticus. He Re-presents with altered mental status. The patient was recently hospitalized at [facility] from 10/03/2016 to 10/19/2016. At that time, he was noted to have sepsis in the setting of ESBL E coli. He was placed on Merrem. He also had status epilepticus. The patient was placed on medications for his seizures prior to discharge. The patient was at his dialysis unit. On the day of admission, he was found to be quite encephalopathic and was transferred to a local hospital in [place]. He was initiated on BiPAP for hypoxic respiratory failure and altered mental status, and transferred to [facility] for further evaluation and management. The patient noted to be obtunded, intubated, and suspicion of recurrent partial complex seizures. Neurology was consulted. Blood work shows subtherapeutic lab levels of Depakote. PAST MEDICAL HISTORY/PAST SURGICAL HISTORY: 1. ESRD, on hemodialysis. Note, the patient has a peritoneal dialysis catheter placed in 06/2016. He has not initiated peritoneal dialysis. 2. Hypertension and diastolic CHF. 3. Pericardial tamponade and window. 4. Mood disorder. 5. Chronic pain syndrome. 6. Hypothyroidism. 7. Type 2 diabetes, with diabetic retinopathy, neuropathy, and nephropathy. 8. Chronic pain and chronic constipation. 9. 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 10.Bilateral cataract surgery. 11.Bilateral release of Dupuytren contractures. 12.Anemia. 13.Note, recent hospitalization at [facility] from 10/03/2016 to 10/19/2016 with sepsis (ESBL E coli). 14.Status epilepticus. FAMILY MEDICAL HISTORY: Parents had CHF. Mother of intracranial hemorrhage. Father of ESRD secondary to uncontrolled diabetes. REVIEW OF SYSTEMS: Complete review of systems unobtainable with patient's current mental status. Consultation Report [address] [place]. [address] NAME: KEMAL MARTINEZ : 59 STATUS : ADM IN PAT#: [id number] AGE: 61 ADM/REG DATE : 11/04/16 MR#: [id number] REPORT SERV DATE: 11/05/16 DICTATED BY: REJI KELLY DATE: 11/05/16 REPORT STATUS : Draft TRANSCRIBED BY: HUGO DATE: 11/05/16 ALLERGIES: HISTORY OF ALLERGIES INCLUDING COREG AND LYRICA. HOME MEDICATIONS: Include: 1. Abilify. 2. Depakote. 3. Keppra. 4. Synthroid. 5. Ativan. 6. Prochlorperazine. 7. Toujeo. 8. Renvela. 9. PhosLo. 10.Linzess. 11.Prilosec. 12.Oxycodone. PHYSICAL EXAMINATION: VITAL SIGNS: His temperature is 98.1, pulse is 60, blood pressure is 150/78. GENERAL: He is intubated, sedated, in no apparent distress. NEURO: He is sedated. SKIN: No petechiae or purpura. HEENT: Normocephalic. ET tube. NECK: Trachea midline. No lymphadenopathy. CARDIOVASCULAR: Regular rate and rhythm. No gallops, rubs, or murmurs. RESPIRATORY: Clear to auscultation bilaterally. ABDOMEN: Soft, nontender, nondistended. Positive bowel sounds. EXTREMITIES: No peripheral edema. LABS: Sodium is 140, potassium 3.9, chloride is 105, CO2 is 27, BUN is 53, creatinine is 5.45, glucose is 88. White blood cell count 6.1, hemoglobin is 8.4, platelets 207. Chest x-ray, reviewed. ASSESSMENT: 1. Altered mental status secondary to seizure. 2. Acute respiratory failure. 3. Recent hospitalization for sepsis - ESBL Escherichia coli, on Merrem; along with status epilepticus. 4. Anemia. 5. End-stage renal disease. 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 He is currently on hemodialysis on Tuesday, , Tuesday. He has a PD catheter. It was placed in 06/2016, but he has not initiated peritoneal dialysis. PLAN: Hemodialysis tomorrow, a.m. labs. Consultation Report [facility] [address] [place]. [address] NAME: KEMAL MARTINEZ : 59 STATUS : ADM IN PAT#: [id number] AGE: 61 ADM/REG DATE : 11/04/16 MR#: [id number] REPORT SERV DATE: 11/05/16 DICTATED BY: REJI KELLY. DATE: 11/05/16 REPORT STATUS : Draft TRANSCRIBED BY: MODYvette DATE: 11/05/16 MARY ALICE/HUGO Reji Kelly M.D. / [id number] CC: Jenise Villavicencio Sherri Lee
[~2016-11-04 21:43] MED LIST changes: +*UNABLE2; +ABILIFY5 PO; +BACLOFEN PO; +COMP5B PO; +DEPAKOT500 PO; +DILTIAZEM PO; +DOXYCYCLINE PO; +KEPPRA500 PO; +LEVOTHYROXINE PO; +LINZESS 290 M290 MCG PO; +OXYCOD PO; +PHOSLO PO; +PRILO PO; +RENVELA800 MG PO; +RISPERIDONE PO; +SYN1 PO; +TORSEMIDE PO; +TOUJEO SC
[2016-11-05 02:24] LABS: INTERNATIONAL NORMAL RATI 1.2 UNITS (-); PARTIAL THROMBO TIME 39.9 SEC (22.5-37.2); PROTIME (NOT ORD) 15.7 SEC (12.0-14.5)
[2016-11-05 02:32] LABS: BASOPHILS 0.2 %; BASOPHILS ABSOLUTE 0.01 10/3/uL (0.0-0.16); EOSINOPHILS 0.2 %; EOSINOPHILS ABSOLUTE 0.01 10/3/uL (0.0-0.53); HEMATOCRIT 26.4 % (40.0-51.0); HEMOGLOBIN 8.4 g/dL (13.6-17.8); IMMATURE GRANULOCYTES 0.3 %; LYMPHOCYTES 11.3 %; LYMPHOCYTES ABSOLUTE 0.69 10/3/uL (0.67-4.30); MEAN CORPUS HGB CONC 31.8 g/dL (32.0-36.0); MEAN CORPUSCULAR HEMOGLOB 30.7 pg (26.0-34.0); MEAN CORPUSCULAR VOLUME 96.4 fL (80-100); MEAN PLATELET VOLUME 10.1 fL (9.2-13.0); MONOCYTES 7.2 %; MONOCYTES ABSOLUTE 0.44 10/3/uL (0.21-1.20); NEUTROPHILS 80.8 %; NEUTROPHILS ABSOLUTE 4.92 10/3/uL (2.02-8.40); PLATELET COUNT 207 10/3/uL (150-400); RBC DISTRIBUTION WIDTH 15.8 % (12.0-16.0); RED CELL COUNT 2.74 10/6/uL (4.7-6.1); WHITE BLOOD CELLS 6.1 10/3/uL (4.5-10.5)
[2016-11-05 02:33] LABS: IMMATURE GRANULOCYTES ABSOLUTE 0.02 10/3/uL (0.0-0.11); MANUAL DIFF NO %
[2016-11-05 02:37] LABS: SED RATE 71 MM/HR (0-15)
[2016-11-05 03:41] LABS: PROCALCITONIN 0.33 ng/mL (<0.5)
[2016-11-05 03:48] LABS: BE (BASE EXCESS) -2.6 MEQ/L (0 +/- 2.5); HCO3 (ACTUAL BICARBONATE) 21.8 MEQ/L (23-27); INSTRUMENT SERIAL # 11843; PCO2 (CO2 TENSION) 36 MMHG (35-45); PO2 (O2 TENSION) 532 MMHG (79-93)
[2016-11-05 03:49] LABS: ALLENS TEST Pos; CARBOXYHEMOGLOBIN 0.3 % (0-3); HEMOBLOGIN CONTENT 9.2 G/DL (14-18); METHEMOGLOBIN 0.5 % (0-3); MODE CMV; O2 CONTENT 14.3 VOL% (18-24); OPERATOR ID 23712; SAMPLE Arterial; TIDAL VOLUME 450 ML
[2016-11-05 07:05] LABS: A/G RATIO 0.4 (0.7-1.9); ALBUMIN 2.1 G/DL (3.5-5.0); ALKALINE PHOSPHATASE 174 U/L (45-117); C-REACTIVE PROTEIN 65.9 MG/L (<8.0); CALCIUM, SERUM 8.8 MG/DL (8.5-10.4); CHLORIDE, SERUM 104 MMOL/L (96-112); FREE T4 1.06 NG/DL (0.76-1.46); GLOBULIN 4.8 G/DL (2.5-4.1); IRON, SERUM 18 MCG/DL (35-150); PHOSPHORUS, SERUM 4.2 MG/DL (2.5-4.5); POTASSIUM, SERUM 3.9 MMOL/L (3.5-5.3); SGOT(AST) 11 U/L (5-40); SODIUM, SERUM 140 MMOL/L (135-148); TOTAL PROTEIN 6.9 G/DL (6.0-8.5)
[2016-11-05 07:08] LABS: BUN (BLOOD UREA NITROGEN) 53 MG/DL (6-23); CK-MB 2.3 NG/ML; CO2 (CARBON DIOXIDE) 27 MMOL/L (24-34); CPK 67 U/L (0-200); CREATININE 5.45 MG/DL (0.70-1.30); DEPAKENE (VALPROIC ACID) 76.2 MCG/ML (50.0-100.0); GFR AFRICAN AMERICAN 12 ML/MIN (>=60); GFR NON AFRICAN AMERICAN 11 ML/MIN (>=60); GLUCOSE, SERUM 88 MG/DL (60-99); SGPT(ALT) < 6 U/L (5-65); TOTAL BILIRUBIN 0.3 MG/DL (0-1.2); TROPONIN I 0.08 NG/ML (<0.05)
[2016-11-06 04:39] LABS: BASOPHILS 0.2 %; BASOPHILS ABSOLUTE 0.01 10/3/uL (0.0-0.16); EOSINOPHILS 1.1 %; EOSINOPHILS ABSOLUTE 0.06 10/3/uL (0.0-0.53); HEMOGLOBIN 9.1 g/dL (13.6-17.8); IMMATURE GRANULOCYTES 0.2 %; IMMATURE GRANULOCYTES ABSOLUTE 0.01 10/3/uL (0.0-0.11); LYMPHOCYTES 23.3 %; MEAN CORPUS HGB CONC 31.1 g/dL (32.0-36.0); MEAN CORPUSCULAR HEMOGLOB 30.2 pg (26.0-34.0); MEAN CORPUSCULAR VOLUME 97.3 fL (80-100); MEAN PLATELET VOLUME 10.2 fL (9.2-13.0); MONOCYTES 17.1 %; MONOCYTES ABSOLUTE 0.95 10/3/uL (0.21-1.20); NEUTROPHILS 58.1 %; NEUTROPHILS ABSOLUTE 3.24 10/3/uL (2.02-8.40); PLATELET COUNT 200 10/3/uL (150-400); RBC DISTRIBUTION WIDTH 15.6 % (12.0-16.0); RED CELL COUNT 3.01 10/6/uL (4.7-6.1); WHITE BLOOD CELLS 5.6 10/3/uL (4.5-10.5)
[2016-11-06 04:41] LABS: HEMATOCRIT 29.3 % (40.0-51.0)
[2016-11-06 04:42] LABS: MANUAL DIFF NO %
[2016-11-06 04:54] LABS: A/G RATIO 0.5 (0.7-1.9); ALBUMIN 2.2 G/DL (3.5-5.0); CALCIUM, SERUM 8.7 MG/DL (8.5-10.4); CHLORIDE, SERUM 107 MMOL/L (96-112); CO2 (CARBON DIOXIDE) 28 MMOL/L (24-34); GLOBULIN 4.8 G/DL (2.5-4.1); GLUCOSE, SERUM 76 MG/DL (60-99); POTASSIUM, SERUM 3.7 MMOL/L (3.5-5.3); SGOT(AST) 11 U/L (5-40); SODIUM, SERUM 143 MMOL/L (135-148); TOTAL BILIRUBIN 0.2 MG/DL (0-1.2)
[2016-11-06 04:59] LABS: ALKALINE PHOSPHATASE 154 U/L (45-117); BUN (BLOOD UREA NITROGEN) 29 MG/DL (6-23); CREATININE 3.74 MG/DL (0.70-1.30); DEPAKENE (VALPROIC ACID) 42.1 MCG/ML (50.0-100.0); GFR AFRICAN AMERICAN 19 ML/MIN (>=60); GFR NON AFRICAN AMERICAN 17 ML/MIN (>=60); SGPT(ALT) < 6 U/L (5-65)
[2016-11-07 04:42] LABS: A/G RATIO 0.5 (0.7-1.9); ALBUMIN 2.5 G/DL (3.5-5.0); ALKALINE PHOSPHATASE 152 U/L (45-117); CALCIUM, SERUM 8.9 MG/DL (8.5-10.4); CHLORIDE, SERUM 108 MMOL/L (96-112); CO2 (CARBON DIOXIDE) 27 MMOL/L (24-34); CREATININE 3.45 MG/DL (0.70-1.30); GFR AFRICAN AMERICAN 21 ML/MIN (>=60); GFR NON AFRICAN AMERICAN 18 ML/MIN (>=60); GLOBULIN 4.7 G/DL (2.5-4.1); POTASSIUM, SERUM 4.2 MMOL/L (3.5-5.3); SGOT(AST) 12 U/L (5-40); SODIUM, SERUM 143 MMOL/L (135-148); TOTAL BILIRUBIN 0.2 MG/DL (0-1.2); TOTAL PROTEIN 7.2 G/DL (6.0-8.5)
[2016-11-07 04:44] LABS: BUN (BLOOD UREA NITROGEN) 22 MG/DL (6-23); DEPAKENE (VALPROIC ACID) 54.2 MCG/ML (50.0-100.0); GLUCOSE, SERUM 99 MG/DL (60-99); SGPT(ALT) < 6 U/L (5-65)
[2016-11-07 12:14] LABS: ALLENS TEST Pos; BE (BASE EXCESS) 0.8 MEQ/L (0 +/- 2.5); CARBOXYHEMOGLOBIN 0.1 % (0-3); DEVICE NC; HCO3 (ACTUAL BICARBONATE) 25.5 MEQ/L (23-27); HEMOBLOGIN CONTENT 10.7 G/DL (14-18); INSTRUMENT SERIAL # 11843; METHEMOGLOBIN 0.3 % (0-3); O2 CONTENT 14.9 VOL% (18-24); PCO2 (CO2 TENSION) 41 MMHG (35-45); PO2 (O2 TENSION) 116 MMHG (79-93); SAMPLE Arterial; pH 7.41 (7.37-7.43)
[2016-11-08 03:50] LABS: HEMATOCRIT 28.3 % (40.0-51.0); HEMOGLOBIN 8.8 g/dL (13.6-17.8); MANUAL DIFF YES %; MEAN CORPUS HGB CONC 31.1 g/dL (32.0-36.0); MEAN CORPUSCULAR HEMOGLOB 29.8 pg (26.0-34.0); MEAN CORPUSCULAR VOLUME 95.9 fL (80-100); MEAN PLATELET VOLUME 10.3 fL (9.2-13.0); PLATELET COUNT 203 10/3/uL (150-400); RBC DISTRIBUTION WIDTH 15.5 % (12.0-16.0); RED CELL COUNT 2.95 10/6/uL (4.7-6.1); WHITE BLOOD CELLS 6.8 10/3/uL (4.5-10.5)
[2016-11-08 04:07] LABS: ALBUMIN 2.4 G/DL (3.5-5.0); BUN (BLOOD UREA NITROGEN) 31 MG/DL (6-23); CALCIUM, SERUM 8.9 MG/DL (8.5-10.4); CHLORIDE, SERUM 106 MMOL/L (96-112); CO2 (CARBON DIOXIDE) 24 MMOL/L (24-34); CREATININE 4.79 MG/DL (0.70-1.30); GFR AFRICAN AMERICAN 14 ML/MIN (>=60); GFR NON AFRICAN AMERICAN 12 ML/MIN (>=60); GLUCOSE, SERUM 156 MG/DL (60-99); PHOSPHORUS, SERUM 4.2 MG/DL (2.5-4.5); POTASSIUM, SERUM 4.5 MMOL/L (3.5-5.3); SODIUM, SERUM 143 MMOL/L (135-148)
[2016-11-08 04:36] LABS: BAND NEUTROPHILS 1 %; EOSINOPHILS 5 %; EOSINOPHILS ABSOLUTE (CALC) 0.34 10/3/uL (0.0-0.53); LYMPHOCYTES 13 %; LYMPHOCYTES ABSOLUTE (CALC) 0.88 10/3/uL (0.67-4.30); MONOCYTES 16 %; MONOCYTES ABSOLUTE (CALC) 1.09 10/3/uL (0.21-1.20); NEUTROPHILS ABSOLUTE (CALC) 4.49 10/3/uL (2.02-8.40); SEGMENTED NEUTROPHIL (0) 65 %; TOTAL NUCLEATED CELLS 100
[2016-11-08 04:37] LABS: PLATELET ESTIMATE ADQ (ADEQUATE); RBC MORPHOLOGY NORM (NORMAL)
[2016-11-08 05:39] LABS: VANCOMYCIN TROUGH 19.1 MCG/ML (10.0-20.0)
[2016-11-09 06:35] LABS: BASOPHILS 0.4 %; BASOPHILS ABSOLUTE 0.03 10/3/uL (0.0-0.16); EOSINOPHILS 3.9 %; EOSINOPHILS ABSOLUTE 0.29 10/3/uL (0.0-0.53); HEMOGLOBIN 8.8 g/dL (13.6-17.8); IMMATURE GRANULOCYTES 0.8 %; IMMATURE GRANULOCYTES ABSOLUTE 0.06 10/3/uL (0.0-0.11); LYMPHOCYTES 27.3 %; LYMPHOCYTES ABSOLUTE 2.01 10/3/uL (0.67-4.30); MEAN CORPUS HGB CONC 31.4 g/dL (32.0-36.0); MEAN CORPUSCULAR HEMOGLOB 29.7 pg (26.0-34.0); MEAN CORPUSCULAR VOLUME 94.6 fL (80-100); MEAN PLATELET VOLUME 10.2 fL (9.2-13.0); MONOCYTES 13.2 %; MONOCYTES ABSOLUTE 0.97 10/3/uL (0.21-1.20); NEUTROPHILS 54.4 %; PLATELET COUNT 217 10/3/uL (150-400); RBC DISTRIBUTION WIDTH 15.6 % (12.0-16.0); RED CELL COUNT 2.96 10/6/uL (4.7-6.1); WHITE BLOOD CELLS 7.4 10/3/uL (4.5-10.5)
[2016-11-09 06:36] LABS: MANUAL DIFF NO %
[2016-11-09 06:47] LABS: ALBUMIN 2.4 G/DL (3.5-5.0); CALCIUM, SERUM 9.3 MG/DL (8.5-10.4); CHLORIDE, SERUM 106 MMOL/L (96-112); CO2 (CARBON DIOXIDE) 21 MMOL/L (24-34); PHOSPHORUS, SERUM 4.4 MG/DL (2.5-4.5); POTASSIUM, SERUM 4.3 MMOL/L (3.5-5.3); SODIUM, SERUM 138 MMOL/L (135-148)
[2016-11-09 06:48] LABS: BUN (BLOOD UREA NITROGEN) 46 MG/DL (6-23); CREATININE 5.92 MG/DL (0.70-1.30); GFR AFRICAN AMERICAN 11 ML/MIN (>=60); GFR NON AFRICAN AMERICAN 10 ML/MIN (>=60); GLUCOSE, SERUM 84 MG/DL (60-99)
[2016-11-10 06:44] LABS: HEMOGLOBIN 9.7 g/dL (13.6-17.8); MEAN CORPUS HGB CONC 31.3 g/dL (32.0-36.0); MEAN CORPUSCULAR HEMOGLOB 30.2 pg (26.0-34.0); MEAN CORPUSCULAR VOLUME 96.6 fL (80-100); MEAN PLATELET VOLUME 10.3 fL (9.2-13.0); PLATELET COUNT 245 10/3/uL (150-400); RBC DISTRIBUTION WIDTH 15.6 % (12.0-16.0); RED CELL COUNT 3.21 10/6/uL (4.7-6.1); WHITE BLOOD CELLS 7.6 10/3/uL (4.5-10.5)
[2016-11-10 06:45] LABS: MANUAL DIFF YES %
[2016-11-10 06:50] LABS: ALBUMIN 2.7 G/DL (3.5-5.0); BUN (BLOOD UREA NITROGEN) 37 MG/DL (6-23); CALCIUM, SERUM 9.2 MG/DL (8.5-10.4); CHLORIDE, SERUM 108 MMOL/L (96-112); CO2 (CARBON DIOXIDE) 23 MMOL/L (24-34); CREATININE 5.31 MG/DL (0.70-1.30); GFR AFRICAN AMERICAN 13 ML/MIN (>=60); GFR NON AFRICAN AMERICAN 11 ML/MIN (>=60); GLUCOSE, SERUM 162 MG/DL (60-99); PHOSPHORUS, SERUM 4.7 MG/DL (2.5-4.5); POTASSIUM, SERUM 4.2 MMOL/L (3.5-5.3); SODIUM, SERUM 141 MMOL/L (135-148)
[2016-11-10 07:10] LABS: BAND NEUTROPHILS 3 %; BASOPHILS 2 %; BASOPHILS ABSOLUTE (CALC) 0.15 10/3/uL (0.0-0.16); EOSINOPHILS 4 %; LYMPHOCYTES 25 %; MONOCYTES 8 %; MONOCYTES ABSOLUTE (CALC) 0.61 10/3/uL (0.21-1.20); NEUTROPHILS ABSOLUTE (CALC) 4.64 10/3/uL (2.02-8.40); PLATELET ESTIMATE ADQ (ADEQUATE); POLYCHROMASIA 1+ (2-5/OIF) (0-1/OIF); SEGMENTED NEUTROPHIL (0) 58 %; TOTAL NUCLEATED CELLS 100; TOXIC GRANULATION 1+
[2016-11-10] MEDS ORDERED: DSS PO (17:12)
[2016-11-10] MEDS ORDERED: VIMPAT50 MG PO (17:24)
[2016-11-10] MEDS ORDERED: VIMPAT100 MG PO (17:25)
[2016-11-10] MEDS ORDERED: SEROQUEL25 PO ×2 (17:32→17:33)
== END 2016-11-10 18:22 | disposition home or self-care (01) | DRG 208 ==
LOC: CVICU 21:43 → 4SO 11-08 10:39
PROVIDERS: Internal Medicine Critical Care Medicine; Internal Medicine Nephrology; Internal Medicine Pulmonary Disease
DX: J96.01 Acute respiratory failure with hypoxia (principal); I50.33 Acute on chronic diastolic (congestive) heart failure; G93.41 Metabolic encephalopathy; N18.6 End stage renal disease; I13.2 Hypertensive heart and chronic kidney disease with heart failure and with stage 5 chronic kidney disease, or end stage renal disease; F05 Delirium due to known physiological condition; F31.10 Bipolar disorder, current episode manic without psychotic features, unspecified; E11.22 Type 2 diabetes mellitus with diabetic chronic kidney disease; Z99.2 Dependence on renal dialysis; E11.65 Type 2 diabetes mellitus with hyperglycemia; G89.4 Chronic pain syndrome; Z86.14 Personal history of Methicillin resistant Staphylococcus aureus infection; E11.319 Type 2 diabetes mellitus with unspecified diabetic retinopathy without macular edema; E11.40 Type 2 diabetes mellitus with diabetic neuropathy, unspecified; G47.33 Obstructive sleep apnea (adult) (pediatric); G40.909 Epilepsy, unspecified, not intractable, without status epilepticus; F39 Unspecified mood [affective] disorder; Z88.8 Allergy status to other drugs, medicaments and biological substances; E03.9 Hypothyroidism, unspecified; D63.1 Anemia in chronic kidney disease; Z89.412 Acquired absence of left great toe; Z79.4 Long term (current) use of insulin; Z79.891 Long term (current) use of opiate analgesic; K59.09 Other constipation; F31.9 Bipolar disorder, unspecified
CPT/HCPCS: 31720; 36569; 36600; 70551; 71010; 74000; 80053; 80069; 80164; 80177; 80202; 81001; 82140; 82550; 82553; 82565; 82607; 82805; 82962; 83540; 83605; 83735; 83880; 84100; 84145; 84439; 84443; 84484; 85025; 85610; 85652; 85730; 86140; 87040; 87070; 87205; 87641; 93005; 94002; 94003; 94660; 94770; 95816; 95819; 97116-GP; 97162-GP; A9270-GY; C1751; C1894; C9113; G0257; G8978-CJ-GP; G8979-CJ-GP; J1953; J2185; J2543; J3010; J3370; P9047